=== PATIENT | female | born 1980 | race American Indian/Alaskan Native ===

== ENCOUNTER 2022-03-09 22:51 | Observation (INO) | payer OTHER ==
[2022-03-09 22:36] LABS: Hemoglobin 11.1 gm/dl (10.1-14.3); Mean Corpuscular HGB Conc 33 % (30-34); Mean Corpuscular Volume 92 fl (79-97); Red Cell Distribution Width 14.8 % (13.2-15.2)
[2022-03-09 22:38] LABS: Bilirubin,Urine NEG (Negative); Blood,Urine NEG (Negative); Color,Urine Straw (Yellow); Mucus,Urine FEW /HPF; Protein,Urine <15 mg/dL mg/dL (Negative); Urobilinogen,Urine < 2.0 mg/dL (<2.0); WBC,Urine < 1.0 /HPF (0.0-6.0)
[2022-03-09 22:41] LABS: Platelet Count 203 K/mm3 (140-440)
[~2022-03-09 22:51] MED LIST: LACTATED RINGERS 1,000 ML ONE
[2022-03-09] MEDS ORDERED: ACETAMINOPHEN 325 MG TAB PO PRN (22:57)
[2022-03-09] MEDS ORDERED: ALUM-MAG HYDROXIDE-SIMETHICONE 200-200-20MG/5ML ORAL LIQD 30 ML PO PRN (22:57)
[2022-03-09] MEDS ORDERED: MAGNESIUM HYDROXIDE (MOM) ORAL LIQD UDC PO PRN (22:57)
[2022-03-09] MEDS ORDERED: diphenhydrAMINE 25 MG CAP PO PRN (22:57)
[2022-03-09] MEDS ORDERED: ONDANSETRON 4 MG/2 ML INJ IV PRN (22:57)
[2022-03-09] MEDS ORDERED: SIMETHICONE 80 MG CHEW TAB PO PRN (22:57)
[2022-03-09] MEDS ORDERED: DOCUSATE SODIUM 100 MG CAP PO PRN (22:57)
[2022-03-09] MEDS ORDERED: SENNOSIDES/DOCUSATE SODIUM 8.6/50 MG TAB PO PRN (22:57)
[2022-03-09 22:59] LABS: Alanine Aminotransferase 10 units/L (7-56); Creatinine,Urine 20.4 mg/dL (0.1-20.0); Protein/Creatinine Ratio,Urine 0.25; Uric Acid 3.4 mg/dL (3.5-7.6)
--- NOTE | 2022-03-09 23:04 | History and Physical Report ---
History of Present Illness Date of examination: 03/09/22 Date of admission: 03/09/2022 Chief complaint: My blood pressures were high at home. History of present illness: Pt is a 41 y.o. @ 32.1 wks who presented to triage with c/o elevated blood pressures at home. States she had readings that were 140's/90's. Per pt, she has no history of cHTN. She is being followed this by [facility] d/t [facility]. Her last visit was on 03/08/22. She was also noted to have renal pyelectasis that has resolved. EDC Confirmation: 05/03/2022 Gestational Age: 32.1 weeks on admission Past History : 2 Living Children: 0 Spont. Ab: 1 # 1 Delivery date: 2017 Delivery type: SAB Comments: Bilghted ovum, no D&C Past Medical History: Reviewed and updated today: + COVID 09/06/2021 Fully vaccinated (partner is also vaccinated) Past Surgical History: Reviewed and updated today: Bone marrow donation 2009 Family History Summary: Other Family Member - Has No Family History of Uterine Cancer - Entered On: 09/23/2021 Other Family Member - Has No Family History of Stomach Cancer - Entered On: 09/23/2021 Other Family Member - Has No Family History of Spontaneous DVT-PE - Entered On: 09/23/2021 Other Family Member - Has No Family History of Small Bowel Cancer - Entered On: 09/23/2021 Other Family Member - Has No Family History of Pancreatic Cancer - Entered On: 09/23/2021 Other Family Member - Has No Family History of Ovarvian Cancer - Entered On: 09/23/2021 Other Family Member - Has No Family History of Kidney/Urinary Tract Cancer - Entered On: 09/23/2021 Other Family Member - Has No Family History of Colon Cancer - Entered On: 09/23/2021 Other Family Member - Has No Family History of Breast Cancer - Entered On: 09/23/2021 Other Family Member - Has No Family History of Brain Cancer - Entered On: 09/23/2021 Other Family Member - Has No Family History of Biliary Tract Cancer - Entered On: 09/23/2021 Social History: Patient is Smoking History: Patient has never smoked. Risk Factors: Smoked Tobacco Use: Never smoker Smokeless Tobacco Use: Never Passive Smoke Exposure: no HIV High Risk Behavior: no Exercise: no Seatbelt Use: 100 % No Dietary Counseling Reason: pn yes PAP Smear History: Date of Last PAP Smear: 03/29/2021 Results: Normal Alcohol Use: yes Drinks per day: social Drug Use: no Past Medical History Surgery (Non-biological technician): Bone marrow donation 2009 Abnormal PAP: negative Social Hx: Patient is Smoking History: Patient has never smoked. Infection History Hx of STD: none HIV Risk Eval: no Rash, Viral, or Febrile illness since last LMP? yes Varicella/Chicken Pox Status: Previous Disease TB Risk: no Infection History Comments: COVID 09/06/2021 Genetic History ADVANCED MATERNAL AGE Congenital Heart Defect: Mom: no Dad: no Daniele Disease: Mom: no Dad: no Thalassemia Mom: no Dad: no Neural Tube Defect Mom: no Dad: no Down's Syndrome Mom: no Dad: no Sarkis-Sachs Mom: no Dad: no Sickle Cell Disease/Trait Mom: yes Dad: no Comments: mother Hemophilia Mom: no Dad: no Muscular Dystrophy Mom: no Dad: no Cystic Fibrosis Mom: no Dad: no [place] Chorea Mom: no Dad: no Mental Retardation Mom: no Dad: no Fragile X Mom: no Dad: no Other Genetic/Chromosomal Disorder Mom: no Dad: no Child w/other defect Mom: no Dad: no Enviromental Exposures Enviromental Exposures Reviewed Xray Exposure: no Medication, drug, or alcohol use since LMP: no Chemical/Other Exposure: no Exposure to Cat Liter: no Hx of Parvovirus (Fifth Disease): no Occupational Exposure to Children: other 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[email or web address]) Active Medications (reviewed today): vitamin #49-iron-FA 6.75 mg iron- 200 mcg tablet ( vitamin #49-iron-fa) Current Allergies (reviewed today): No known allergies Past History Past Medical History: other (COVID Positive in 08/2021) Past Surgical History: other (Bone marrow donation in 2009) Family/Genetic History: none Social history: no significant social history - Obstetrical History Expected Date of Delivery: 05/03/22 Actual Gestation: 32 Week(s) 2 Day(s) : 2 Para: 0 Hx # Term Pregnancies: 0 Number of Pregnancies: 0 Spontaneous Abortions: 1 Induced : 0 Number of Living Children: 0 Medications and Allergies Allergies Allergy/AdvReac Type Severity Reaction Status Date / Time No Known Allergies Allergy Verified 03/09/22 22:22 Active Meds: Active Medications Acetaminophen (Acetaminophen 325 Mg Tab) 650 mg PO Q4H PRN PRN Reason: Pain MILD(1-3)/Fever >100.5/NG Al Hydrox/Mg Hydrox/Simethicone (Alum-Mag Hydroxide-Simethicone 284-121-18gw/5ml Oral Liqd 30 Ml) 30 ml PO Q6H PRN PRN Reason: Indigestion Betamethasone Acet/Betameth SodPhos (Betamet Acet/Betamet Na Ph 6 Mg/Ml Inj 5 Ml Mdv) 12 mg IM Q24HR DAWNA Stop: 03/11/22 10:01 Diphenhydramine HCl (Diphenhydramine 25 Mg Cap) 25 mg PO Q6H PRN PRN Reason: Itching Docusate Sodium (Docusate Sodium 100 Mg Cap) 100 mg PO Q12H PRN PRN Reason: Constipation Magnesium Hydroxide (Magnesium Hydroxide (Mom) Oral Liqd Udc) 30 ml PO QHS PRN PRN Reason: Laxative Effect Multivitamins/Iron/Calcium ( Qzs28-Va Fumarate-Folic Acid Vit Tab) 1 each PO QDAY DAWNA Ondansetron HCl (Ondansetron 4 Mg/2 Ml Inj) 4 mg IV Q6H PRN PRN Reason: Nausea And Vomiting Senna/Docusate Sodium (Sennosides/Docusate Sodium 8.6/50 Mg Tab) 2 tab PO Q12H PRN PRN Reason: Laxative Effect Simethicone (Simethicone 80 Mg Chew Tab) 80 mg PO Q6H PRN PRN Reason: Gas pain Review of Systems All systems: negative - Vital Signs Vital signs: Vital Signs Pulse BP 108 H 147/97 03/09/22 21:27 03/09/22 21:27 Temp Pulse Resp BP Pulse Ox 98.1 F 71 141/72 99 03/09/22 21:39 03/09/22 22:59 03/09/22 22:57 03/09/22 22:59 - Physical Exam Breasts: Positive: deferred Cardiovascular: Normal S1, Normal S2 Lungs: Positive: Clear to auscultation Abdomen: Positive: normal appearance, soft Genitourinary (Female): Positive: normal external genitalia, normal perenium Vulva: both: normal Vagina: Positive: normal moisture Uterus: Positive: normal size Extremities: Positive: edema (+1 edema to lower extremities.) Deep Tendon Reflex Grade: Normal +2 - Obstetrical FHR: category 1 Uterine Contraction Monitor Mode: External Cervical Dilatation: 0 Cervical Effacement Percentage: 0 station: -3 Uterine Contraction Pattern: Irregular Uterine Tone Measurement Phase: Resting Uterine Contraction Intensity: Mild Results Result Diagrams: 03/09/22 22:25 03/09/22 22:25 Abnormal lab results 03/09/22 03/09/22 03/09/22 Range/Units 22:25 22:25 22:25 WBC 17.9 H (4.5-11.0) K/mm3 Creatinine 0.3 L (0.6-1.2) mg/dL Uric Acid 3.4 L (3.5-7.6) mg/dL Lactate Dehydrogenase 284 H (91-180) units/L Ur Specific [place] 1.002 L (1.003-1.030) Urine Creatinine (0.1-20.0) mg/dL 03/09/22 Range/Units 22:25 WBC (4.5-11.0) K/mm3 Creatinine (0.6-1.2) mg/dL Uric Acid (3.5-7.6) mg/dL Lactate Dehydrogenase (91-180) units/L Ur Specific [place] (1.003-1.030) Urine Creatinine 20.4 H (0.1-20.0) mg/dL All other labs normal. GBS UNKNOWN: Not drawn yet d/t gestation of only 32 weeks HBsAg Screen Negative Negative *1 RPR Non Reactive Non Reactive *2 Rubella Antibodies, IgG 2.97 index Immune >0.99 *3 Non-immune <0.90 Equivocal 0.90 - 0.99 Immune >0.99 ABO Grouping O *4 Rh Factor Positive *5 Antibody Screen Negative Negative *6 Tests: (2) HB Solu + Rflx [facility] ([id number]) Hemoglobin (Hgb) Solubility [A] Positive Negative *31 Tests: (3) Hgb Fractionation [place] ([id number]) ! Hgb F 0.0 % 0.0-2.0 *32 ! Hgb A [L] 55.8 % 96.4-98.8 *33 ! Hgb A2 2.9 % 1.8-3.2 *34 ! Hgb S [H] 41.3 % 0.0 *35 ! Interpretation: KELLY *36 Reflex to Hgb Solubility indicated for confirmation. Tests: (5) HIV Ab/p24 Ag with Reflex ([id number]) HIV Ab/p24 Ag Screen Non Reactive Non Reactive *39 HIV Negative HIV-1/HIV-2 antibodies and HIV-1 p24 antigen were NOT detected. There is no laboratory evidence of HIV infection. Tests: (6) HCV Antibody reflex to GIO ([id number]) HCV Ab <0.1 s/co ratio 0.0-0.9 *40 Tests: (7) Interpretation: ([id number]) ! Interpretation: SPRCS *41 Negative Not infected with HCV, unless recent infection is suspected or other evidence exists to indicate HCV infection. Assessment and Plan A: 41 y.o. @ 32.1 wks, elevated blood pressures. - Patient Problems (1) Elevated blood pressure affecting in third trimester, antepartum Current Visit: Yes Status: Acute Plan to address problem: Consulted with Dr. Farah. Admit to observation. Draw admission and Pre Eclampsia labs. Initiate 24 hr urine. Steroid administration. Will hold off on magnesium infusion. - Will initiate if persistent severe range blood pressures. Ultrasound for EFW, presentation, full MARION. Monitor blood pressures. Monitor for s/sx of Pre Eclampsia. Cardiac diet. (2) with 32 completed weeks gestation Current Visit: Yes Status: Acute Plan to address problem: Continuous EFM to monitor status.
[2022-03-10] MEDS: BETAMET ACET/BETAMET NA PH 6 MG/ML INJ 5 ML MDV IM SCH (00:54)
--- NOTE | 2022-03-10 01:34 | Ultrasound Report ---
ULTRASOUND OBSTETRIC INDICATION / CLINICAL INFORMATION: growth, presentation, full MARION. Clinical Gestational Age (GA) in weeks, days: 32, 2 TECHNIQUE: Transabdominal. COMPARISON: None available. FINDINGS: Single intrauterine . Biparietal Diameter = 8.7 cm = 35, 0 weeks, days Head Circumference = 29.5 cm = 30, 4 weeks, days Abdominal Circumference = 27.8 cm = 31, 6 weeks, days Femur Length = 6.0 cm = 31, 1 weeks, days Average Ultrasound Age (AUA) = 32, 5 weeks, days Heart Rate: 156 beats per minute. Estimated Weight in grams (if calculated): 1870 Estimated Weight Growth Percentile (if calculated): 29 Position: cephalic. Placenta: Right lateral and free of the os. Amniotic Fluid Volume: decreased Amniotic Fluid Index (MARION) in cm (if calculated): 6.4. IMPRESSION: 1. Single, living intrauterine with estimated sonographic age of 33, 5 weeks, days. 2. Mild oligohydramnios Signer Name: Sadiq Esposito DO Signed: 03/10/2022 1:30 AM Workstation Name: [id number]
--- NOTE | 2022-03-10 06:10 | Progress Note ---
Assessment and Plan A: 41 y.o. @ 32.1 wks, elevated blood pressures. - Patient Problems (1) Elevated blood pressure affecting in third trimester, antepartum Current Visit: Yes Status: Acute Plan to address problem: Continue with 24 hours urine. - Due to end at 0114 on 03/11. Monitor for s/sx of pre eclampsia. Continue to monitor blood pressures. Steroids ordered: #1 dose given 0054 03/10. - 2nd dose to be given 03/11 0054. (2) with 32 completed weeks gestation Current Visit: Yes Status: Acute Plan to address problem: Continuous EFM. Subjective - Subjective Date of service: 03/10/22 Principal diagnosis: IUP @ 32.1 wks, elevated blood pressures Interval history: Pt denies NG, blurred vision, spots before her eyes, chest pain, upper abdominal pain, shortness of breath, vaginal bleeding, LOF, ctxs. We discussed the plan of care for the day and patient agrees to this plan. Patient reports: movement normal, no new complaints, no loss of fluid, no vaginal bleeding, no contractions Objective - Vital Signs Vital Signs: Vital Signs - 12hr 03/09/22 03/09/22 03/09/22 21:27 21:28 21:29 Temperature Pulse Rate 108 H 80 Blood Pressure 147/97 O2 Sat by Pulse 75 L 99 Oximetry 03/09/22 03/09/22 03/09/22 21:34 21:39 21:43 Temperature 98.1 F Pulse Rate 94 H 87 80 Blood Pressure 171/80 O2 Sat by Pulse 99 99 Oximetry 03/09/22 03/09/22 03/09/22 21:44 21:49 21:54 Temperature Pulse Rate 79 94 H 86 Blood Pressure O2 Sat by Pulse 99 100 100 Oximetry 03/09/22 03/09/22 03/09/22 21:59 22:04 22:09 Temperature Pulse Rate 82 84 85 Blood Pressure 132/76 O2 Sat by Pulse 99 100 100 Oximetry 03/09/22 03/09/22 03/09/22 22:12 22:14 22:19 Temperature Pulse Rate 83 89 80 Blood Pressure 143/78 O2 Sat by Pulse 99 100 Oximetry 03/09/22 03/09/22 03/09/22 22:24 22:28 22:29 Temperature Pulse Rate 89 88 79 Blood Pressure 136/82 O2 Sat by Pulse 99 99 Oximetry 03/09/22 03/09/22 03/09/22 22:34 22:39 22:43 Temperature Pulse Rate 80 80 75 Blood Pressure 143/73 O2 Sat by Pulse 99 100 Oximetry 03/09/22 03/09/22 03/09/22 22:44 22:49 22:54 Temperature Pulse Rate 85 80 74 Blood Pressure O2 Sat by Pulse 99 98 99 Oximetry 03/09/22 03/09/22 03/09/22 22:57 22:59 23:04 Temperature Pulse Rate 74 71 77 Blood Pressure 141/72 O2 Sat by Pulse 99 99 Oximetry 03/09/22 03/09/22 03/09/22 23:09 23:12 23:14 Temperature Pulse Rate 73 74 72 Blood Pressure 142/74 O2 Sat by Pulse 100 100 Oximetry 03/09/22 03/09/22 03/09/22 23:19 23:24 23:28 Temperature Pulse Rate 70 75 88 Blood Pressure 146/76 O2 Sat by Pulse 99 98 Oximetry 03/09/22 03/09/22 03/10/22 23:29 23:34 00:22 Temperature Pulse Rate 70 81 74 Blood Pressure O2 Sat by Pulse 99 99 99 Oximetry 03/10/22 03/10/22 03/10/22 00:27 00:32 00:37 Temperature Pulse Rate 75 90 82 Blood Pressure O2 Sat by Pulse 99 99 99 Oximetry 03/10/22 03/10/22 03/10/22 00:42 00:47 00:48 Temperature Pulse Rate 86 103 H 110 H Blood Pressure 142/83 O2 Sat by Pulse 99 98 Oximetry 03/10/22 03/10/22 03/10/22 00:52 00:57 01:02 Temperature Pulse Rate 100 H 80 97 H Blood Pressure O2 Sat by Pulse 98 99 99 Oximetry 03/10/22 03/10/22 03/10/22 01:07 01:12 01:22 Temperature Pulse Rate 96 H 83 40 L Blood Pressure O2 Sat by Pulse 99 98 97 Oximetry 03/10/22 03/10/22 03/10/22 01:27 01:32 01:37 Temperature Pulse Rate 83 78 70 Blood Pressure O2 Sat by Pulse 98 97 99 Oximetry 03/10/22 03/10/22 03/10/22 01:42 01:47 01:48 Temperature Pulse Rate 79 83 82 Blood Pressure 132/73 O2 Sat by Pulse 99 99 Oximetry 03/10/22 03/10/22 03/10/22 01:52 01:57 02:02 Temperature Pulse Rate 92 H 92 H 89 Blood Pressure O2 Sat by Pulse 98 98 98 Oximetry 03/10/22 03/10/22 03/10/22 02:07 02:12 02:17 Temperature Pulse Rate 86 105 H 91 H Blood Pressure O2 Sat by Pulse 98 100 98 Oximetry 03/10/22 03/10/22 03/10/22 02:18 02:22 02:27 Temperature Pulse Rate 84 97 H 85 Blood Pressure 128/80 O2 Sat by Pulse 98 98 Oximetry 03/10/22 03/10/22 03/10/22 02:32 02:37 02:42 Temperature Pulse Rate 82 84 84 Blood Pressure O2 Sat by Pulse 98 97 97 Oximetry 03/10/22 03/10/22 03/10/22 02:47 02:48 02:52 Temperature Pulse Rate 87 86 82 Blood Pressure 149/84 O2 Sat by Pulse 97 96 Oximetry 03/10/22 03/10/22 03/10/22 02:57 03:02 03:07 Temperature Pulse Rate 83 84 85 Blood Pressure O2 Sat by Pulse 96 96 96 Oximetry 03/10/22 03/10/22 03/10/22 03:12 03:17 03:19 Temperature Pulse Rate 86 86 82 Blood Pressure 134/77 O2 Sat by Pulse 96 96 Oximetry 03/10/22 03/10/22 03/10/22 03:22 03:27 03:32 Temperature Pulse Rate 80 85 81 Blood Pressure O2 Sat by Pulse 96 96 96 Oximetry 03/10/22 03/10/22 03/10/22 03:37 03:42 03:47 Temperature Pulse Rate 82 84 82 Blood Pressure O2 Sat by Pulse 96 96 96 Oximetry 03/10/22 03/10/22 03/10/22 03:48 03:52 03:57 Temperature Pulse Rate 81 82 81 Blood Pressure 145/78 O2 Sat by Pulse 95 95 Oximetry 03/10/22 03/10/22 03/10/22 04:02 04:03 04:07 Temperature Pulse Rate 91 H 92 H 79 Blood Pressure O2 Sat by Pulse 94 94 96 Oximetry 03/10/22 03/10/22 03/10/22 04:12 04:17 04:18 Temperature Pulse Rate 77 74 78 Blood Pressure 139/75 O2 Sat by Pulse 96 96 94 Oximetry 03/10/22 03/10/22 03/10/22 04:22 04:27 04:32 Temperature Pulse Rate 91 H 87 80 Blood Pressure O2 Sat by Pulse 98 97 96 Oximetry 03/10/22 03/10/22 03/10/22 04:37 04:42 04:47 Temperature Pulse Rate 77 76 79 Blood Pressure O2 Sat by Pulse 96 97 97 Oximetry 03/10/22 03/10/22 03/10/22 04:48 04:52 04:57 Temperature Pulse Rate 79 80 81 Blood Pressure 136/76 O2 Sat by Pulse 97 97 Oximetry 03/10/22 03/10/22 03/10/22 05:02 05:07 05:12 Temperature Pulse Rate 74 93 H 101 H Blood Pressure O2 Sat by Pulse 97 98 98 Oximetry 03/10/22 03/10/22 03/10/22 05:17 05:18 05:22 Temperature Pulse Rate 104 H 100 H 78 Blood Pressure 138/90 O2 Sat by Pulse 98 97 Oximetry 03/10/22 03/10/22 03/10/22 05:27 05:32 05:37 Temperature Pulse Rate 98 H 91 H 87 Blood Pressure O2 Sat by Pulse 98 98 97 Oximetry 03/10/22 03/10/22 03/10/22 05:42 05:47 05:48 Temperature Pulse Rate 90 73 73 Blood Pressure 125/74 O2 Sat by Pulse 99 97 Oximetry 03/10/22 03/10/22 03/10/22 05:52 05:57 06:02 Temperature Pulse Rate 76 78 88 Blood Pressure O2 Sat by Pulse 97 98 98 Oximetry - Exam Narrative Exam: Blood pressure ranges have been mostly 120-140-s/70-90's. One severe range noted of 171/80. Breasts: deferred Cardiovascular: Regular rate Lungs: Normal air movement Abdomen: Present: normal appearance, soft Vulva: both: normal Uterus: Present: normal FHR: category 1 Uterine Contraction Monitor Mode: External Uterine Contraction Pattern: Absent Extremities: normal - Labs Labs: Abnormal Labs 03/09/22 03/09/22 03/09/22 22:25 22:25 22:25 WBC 17.9 H Creatinine 0.3 L Uric Acid 3.4 L Lactate Dehydrogenase 284 H Ur Specific [place] 1.002 L Urine Creatinine 03/09/22 22:25 WBC Creatinine Uric Acid Lactate Dehydrogenase Ur Specific [place] Urine Creatinine 20.4 H Laboratory Results - last 24 hr 03/09/22 03/09/22 03/09/22 22:25 22:25 22:25 WBC 17.9 H RBC 3.70 Hgb 11.1 Hct 34.0 MCV 92 MCH 30 MCHC 33 RDW 14.8 Plt Count 203 Creatinine 0.3 L Estimated GFR > 60 Uric Acid 3.4 L AST 23 ALT 10 Lactate Dehydrogenase 284 H Urine Color Straw Urine Turbidity Clear Urine pH 7.0 Ur Specific [place] 1.002 L Urine Protein <15 mg/dl Urine Glucose (UA) Neg Urine Ketones 20 Urine Blood Neg Urine Nitrite Neg Urine Bilirubin Neg Urine Urobilinogen < 2.0 Ur Leukocyte Esterase Neg Urine WBC (Auto) < 1.0 Urine RBC (Auto) 1.0 U Epithel Cells (Auto) 3.0 Urine Mucus Few Urine Creatinine Protein/Creatinin Ratio Urine Total Protein Syphilis IgG/IgM Ab Blood Type Antibody Screen 03/09/22 03/09/22 03/09/22 22:25 22:25 22:25 WBC RBC Hgb Hct MCV MCH MCHC RDW Plt Count Creatinine Estimated GFR Uric Acid AST ALT Lactate Dehydrogenase Urine Color Urine Turbidity Urine pH Ur Specific [place] Urine Protein Urine Glucose (UA) Urine Ketones Urine Blood Urine Nitrite Urine Bilirubin Urine Urobilinogen Ur Leukocyte Esterase Urine WBC (Auto) Urine RBC (Auto) U Epithel Cells (Auto) Urine Mucus Urine Creatinine 20.4 H Protein/Creatinin Ratio 0.25 Urine Total Protein 5 Syphilis IgG/IgM Ab Nonreactive Blood Type O POSITIVE Antibody Screen Negative
[2022-03-10] MEDS ORDERED: BETAMET ACET/BETAMET NA PH 6 MG/ML INJ 5 ML MDV IM SCH (10:00)
[2022-03-10] MEDS: PRENATAL VIT27-FE FUMARATE-FOLIC ACID VIT TAB PO SCH (10:47)
[2022-03-10] MEDS: ASPIRIN 81 MG TAB CHEW PO SCH (11:36)
[2022-03-11] MEDS: BETAMET ACET/BETAMET NA PH 6 MG/ML INJ 5 ML MDV IM SCH (01:08)
[2022-03-11] MEDS ORDERED: LACTATED RINGERS 1,000 ML ONE (06:42)
--- NOTE | 2022-03-11 08:22 | Progress Note ---
Assessment and Plan A: 41 y.o. @ 32.2 wks, Pre Eclampsia. - Patient Problems (1) with 32 completed weeks gestation Current Visit: Yes Status: Acute Plan to address problem: Continuous monitoring to monitor for status. (2) Pre-eclampsia during in third trimester, antepartum Current Visit: Yes Status: Acute Plan to address problem: Possible discharge home today if remains stable. Consult placed for AMFM. - Awaiting recommendations. Continue to monitor for worsening s/sx of Pre Eclampsia. Continue to monitor blood pressures. No magnesium infusion or anti-hypertensive at this time. - BP ranges have been WNL. Subjective - Subjective Date of service: 03/11/22 Principal diagnosis: IUP @ 32.3 wks, Pre eclampsia Interval history: Pt denies NG, blurred vision, spots before her eyes, chest pain, upper abdominal pain, shortness of breath, vaginal bleeding, LOF, ctxs. We discussed the plan of care for the day and patient agrees to this plan. Patient reports: movement normal, no new complaints, no loss of fluid, no vaginal bleeding, no contractions Objective - Vital Signs Vital Signs: Vital Signs - 12hr 03/10/22 03/10/22 03/10/22 20:24 20:29 20:34 Temperature Pulse Rate 79 90 87 Blood Pressure O2 Sat by Pulse 98 99 98 Oximetry 03/10/22 03/10/22 03/10/22 20:39 20:44 20:48 Temperature Pulse Rate 88 82 156 H Blood Pressure 137/84 O2 Sat by Pulse 97 97 78 L Oximetry 03/10/22 03/10/22 03/10/22 21:33 21:38 21:39 Temperature Pulse Rate 62 95 H 84 Blood Pressure 128/80 O2 Sat by Pulse 81 L 99 Oximetry 03/10/22 03/10/22 03/10/22 21:43 21:48 21:53 Temperature Pulse Rate 82 99 H 99 H Blood Pressure O2 Sat by Pulse 97 97 98 Oximetry 03/10/22 03/10/22 03/10/22 21:58 22:03 22:04 Temperature Pulse Rate 100 H 89 97 H Blood Pressure O2 Sat by Pulse 98 99 94 Oximetry 03/10/22 03/10/22 03/10/22 22:08 22:13 22:18 Temperature Pulse Rate 88 87 92 H Blood Pressure O2 Sat by Pulse 97 98 98 Oximetry 03/10/22 03/10/22 03/10/22 22:23 22:28 22:33 Temperature Pulse Rate 83 82 80 Blood Pressure O2 Sat by Pulse 97 97 98 Oximetry 03/10/22 03/10/22 03/10/22 22:38 22:39 22:43 Temperature Pulse Rate 87 84 82 Blood Pressure 131/83 O2 Sat by Pulse 98 98 Oximetry 03/10/22 03/10/22 03/10/22 22:48 22:53 22:58 Temperature Pulse Rate 85 93 H 89 Blood Pressure O2 Sat by Pulse 99 99 98 Oximetry 03/10/22 03/10/22 03/10/22 23:03 23:08 23:13 Temperature Pulse Rate 96 H 85 78 Blood Pressure O2 Sat by Pulse 99 98 97 Oximetry 03/10/22 03/10/22 03/10/22 23:18 23:23 23:28 Temperature Pulse Rate 82 83 84 Blood Pressure O2 Sat by Pulse 96 96 96 Oximetry 03/10/22 03/10/22 03/10/22 23:33 23:38 23:40 Temperature Pulse Rate 85 92 H 90 Blood Pressure 119/60 O2 Sat by Pulse 96 98 Oximetry 03/10/22 03/10/22 03/10/22 23:43 23:48 23:53 Temperature Pulse Rate 86 82 85 Blood Pressure O2 Sat by Pulse 96 97 97 Oximetry 03/10/22 03/11/22 03/11/22 23:58 00:03 00:08 Temperature Pulse Rate 86 86 87 Blood Pressure O2 Sat by Pulse 97 96 96 Oximetry 03/11/22 03/11/22 03/11/22 00:13 00:18 00:23 Temperature Pulse Rate 84 90 82 Blood Pressure O2 Sat by Pulse 96 97 96 Oximetry 03/11/22 03/11/22 03/11/22 00:28 00:33 00:38 Temperature Pulse Rate 83 84 95 H Blood Pressure O2 Sat by Pulse 96 96 99 Oximetry 03/11/22 03/11/22 03/11/22 00:40 00:43 00:48 Temperature Pulse Rate 86 82 84 Blood Pressure 123/66 O2 Sat by Pulse 96 96 Oximetry 03/11/22 03/11/22 03/11/22 00:53 00:58 01:03 Temperature Pulse Rate 82 80 95 H Blood Pressure O2 Sat by Pulse 97 97 98 Oximetry 03/11/22 03/11/22 03/11/22 01:08 01:13 01:18 Temperature 98.1 F Pulse Rate 81 82 83 Blood Pressure O2 Sat by Pulse 97 97 97 Oximetry 03/11/22 03/11/22 03/11/22 01:23 01:28 01:33 Temperature Pulse Rate 100 H 75 92 H Blood Pressure O2 Sat by Pulse 98 98 99 Oximetry 03/11/22 03/11/22 03/11/22 01:38 01:40 01:43 Temperature Pulse Rate 78 81 78 Blood Pressure 130/76 O2 Sat by Pulse 98 98 Oximetry 03/11/22 03/11/22 03/11/22 01:48 01:53 01:58 Temperature Pulse Rate 84 95 H 74 Blood Pressure O2 Sat by Pulse 98 97 99 Oximetry 03/11/22 03/11/22 03/11/22 02:03 02:08 02:13 Temperature Pulse Rate 76 82 80 Blood Pressure O2 Sat by Pulse 98 98 97 Oximetry 03/11/22 03/11/22 03/11/22 02:18 02:23 02:28 Temperature Pulse Rate 82 81 81 Blood Pressure O2 Sat by Pulse 98 98 98 Oximetry 03/11/22 03/11/22 03/11/22 02:33 02:44 02:49 Temperature Pulse Rate 80 113 H 86 Blood Pressure O2 Sat by Pulse 98 98 98 Oximetry 03/11/22 03/11/22 03/11/22 02:54 02:59 03:04 Temperature Pulse Rate 94 H 73 75 Blood Pressure O2 Sat by Pulse 97 97 97 Oximetry 03/11/22 03/11/22 03/11/22 03:05 03:09 03:14 Temperature Pulse Rate 87 73 74 Blood Pressure 128/85 O2 Sat by Pulse 98 99 Oximetry 03/11/22 03/11/22 03/11/22 03:19 03:24 03:29 Temperature Pulse Rate 71 75 75 Blood Pressure O2 Sat by Pulse 98 97 98 Oximetry 03/11/22 03/11/22 03/11/22 03:34 03:39 03:40 Temperature Pulse Rate 72 70 71 Blood Pressure 119/59 O2 Sat by Pulse 98 96 Oximetry 03/11/22 03/11/22 03/11/22 03:44 03:49 03:54 Temperature Pulse Rate 79 76 80 Blood Pressure O2 Sat by Pulse 97 97 96 Oximetry 03/11/22 03/11/22 03/11/22 03:59 04:04 04:09 Temperature Pulse Rate 83 83 80 Blood Pressure O2 Sat by Pulse 95 95 95 Oximetry 03/11/22 03/11/22 03/11/22 04:14 04:15 04:19 Temperature Pulse Rate 85 84 77 Blood Pressure O2 Sat by Pulse 95 94 94 Oximetry 03/11/22 03/11/22 03/11/22 04:20 04:24 04:29 Temperature Pulse Rate 81 81 83 Blood Pressure O2 Sat by Pulse 94 96 96 Oximetry 03/11/22 03/11/22 03/11/22 04:34 04:39 04:40 Temperature Pulse Rate 83 77 81 Blood Pressure 103/55 O2 Sat by Pulse 96 96 94 Oximetry 03/11/22 03/11/22 03/11/22 04:44 04:49 04:51 Temperature Pulse Rate 79 83 83 Blood Pressure O2 Sat by Pulse 95 95 94 Oximetry 03/11/22 03/11/22 03/11/22 04:54 04:59 05:01 Temperature Pulse Rate 82 85 82 Blood Pressure O2 Sat by Pulse 94 95 94 Oximetry 03/11/22 03/11/22 03/11/22 05:04 05:09 05:14 Temperature Pulse Rate 81 84 93 H Blood Pressure O2 Sat by Pulse 95 95 95 Oximetry 03/11/22 03/11/22 03/11/22 05:19 05:24 05:29 Temperature Pulse Rate 83 83 83 Blood Pressure O2 Sat by Pulse 94 96 95 Oximetry 03/11/22 03/11/22 03/11/22 05:30 05:34 05:37 Temperature Pulse Rate 80 81 81 Blood Pressure O2 Sat by Pulse 94 96 94 Oximetry 03/11/22 03/11/22 03/11/22 05:39 05:40 05:44 Temperature Pulse Rate 74 77 84 Blood Pressure 99/53 O2 Sat by Pulse 94 97 Oximetry 03/11/22 03/11/22 03/11/22 05:46 05:49 05:54 Temperature Pulse Rate 80 80 84 Blood Pressure O2 Sat by Pulse 94 95 98 Oximetry 03/11/22 03/11/22 03/11/22 05:59 06:04 06:09 Temperature Pulse Rate 93 H 78 71 Blood Pressure O2 Sat by Pulse 98 95 97 Oximetry 03/11/22 03/11/22 03/11/22 06:14 06:19 06:24 Temperature 98.2 F Pulse Rate 79 74 72 Blood Pressure 130/65 O2 Sat by Pulse 97 99 98 Oximetry 03/11/22 03/11/22 03/11/22 06:29 06:34 06:39 Temperature Pulse Rate 68 83 71 Blood Pressure O2 Sat by Pulse 97 98 97 Oximetry 03/11/22 03/11/22 03/11/22 06:40 06:44 06:49 Temperature Pulse Rate 72 64 84 Blood Pressure 125/67 O2 Sat by Pulse 97 98 Oximetry 03/11/22 03/11/22 03/11/22 06:54 06:59 07:04 Temperature Pulse Rate 79 78 74 Blood Pressure O2 Sat by Pulse 96 98 96 Oximetry 03/11/22 03/11/22 03/11/22 07:09 07:14 07:19 Temperature Pulse Rate 85 83 74 Blood Pressure O2 Sat by Pulse 97 97 97 Oximetry 03/11/22 03/11/22 03/11/22 07:24 07:29 07:34 Temperature Pulse Rate 78 78 80 Blood Pressure O2 Sat by Pulse 97 98 98 Oximetry 03/11/22 03/11/22 03/11/22 07:39 07:41 07:44 Temperature Pulse Rate 76 77 77 Blood Pressure 111/58 O2 Sat by Pulse 97 94 96 Oximetry 03/11/22 03/11/22 03/11/22 07:49 07:54 07:59 Temperature Pulse Rate 80 78 78 Blood Pressure O2 Sat by Pulse 96 97 98 Oximetry - Exam Narrative Exam: Blood pressure ranges this morning have been 90-130's/50-80's. Breasts: deferred Cardiovascular: Regular rate Lungs: Normal air movement Abdomen: Present: normal appearance, soft FHR: category 1 Uterine Contraction Monitor Mode: External Uterine Contraction Pattern: Absent Deep Tendon Reflex Grade: Normal +2 - Labs Labs: Abnormal Labs 03/09/22 03/09/22 03/09/22 22:25 22:25 22:25 WBC 17.9 H Creatinine 0.3 L Uric Acid 3.4 L Lactate Dehydrogenase 284 H Ur Specific [place] 1.002 L Urine Creatinine Ur Total Protein 24 Hr 03/09/22 03/09/22 22:25 22:57 WBC Creatinine Uric Acid Lactate Dehydrogenase Ur Specific [place] Urine Creatinine 20.4 H Ur Total Protein 24 Hr 420.00 H Laboratory Results - last 24 hr 03/09/22 03/10/22 22:57 11:00 Urine Total Volume 4200 Ur Total Protein 24 Hr 420.00 H Urine Total Protein 10 SARS-CoV-2 (PCR) Negative
--- NOTE | 2022-03-11 09:32 | Consultation ---
History of Present Illness - Reason for Consult Consult date: 03/11/22 Past History Social history: no significant social history Medications and Allergies Allergies Allergy/AdvReac Type Severity Reaction Status Date / Time No Known Allergies Allergy Verified 03/09/22 22:22 Active Meds: Active Medications Acetaminophen (Acetaminophen 325 Mg Tab) 650 mg PO Q4H PRN PRN Reason: Pain MILD(1-3)/Fever >100.5/NG Al Hydrox/Mg Hydrox/Simethicone (Alum-Mag Hydroxide-Simethicone [id number]/5ml Oral Liqd 30 Ml) 30 ml PO Q6H PRN PRN Reason: Indigestion Aspirin (Aspirin 81 Mg Tab Chew) 81 mg PO QDAY COUNTS INCLUDE 234 BEDS AT THE [facility] Last Admin: 03/10/22 11:36 Dose: 81 mg Diphenhydramine HCl (Diphenhydramine 25 Mg Cap) 25 mg PO Q6H PRN PRN Reason: Itching Docusate Sodium (Docusate Sodium 100 Mg Cap) 100 mg PO Q12H PRN PRN Reason: Constipation Magnesium Hydroxide (Magnesium Hydroxide (Mom) Oral Liqd Udc) 30 ml PO QHS PRN PRN Reason: Laxative Effect Multivitamins/Iron/Calcium ( [id number] Fumarate-Folic Acid Vit Tab) 1 each PO QDAY COUNTS INCLUDE 234 BEDS AT THE [facility] Last Admin: 03/10/22 10:47 Dose: 1 each Ondansetron HCl (Ondansetron 4 Mg/2 Ml Inj) 4 mg IV Q6H PRN PRN Reason: Nausea And Vomiting Senna/Docusate Sodium (Sennosides/Docusate Sodium 8.6/50 Mg Tab) 2 tab PO Q12H PRN PRN Reason: Laxative Effect Simethicone (Simethicone 80 Mg Chew Tab) 80 mg PO Q6H PRN PRN Reason: Gas pain Exam - Constitutional Vitals: Temp Pulse Resp BP Pulse Ox 98.6 F 78 20 124/60 97 03/11/22 08:36 03/11/22 09:24 03/11/22 08:36 03/11/22 09:05 03/11/22 09:24 Results - Labs CBC & Chem 7: 03/09/22 22:25 03/09/22 22:25 Labs: Abnormal lab results 03/09/22 Range/Units 22:57 Ur Total Protein 24 Hr 420.00 H (2-200) mg/dL Assessment and Plan AMFM Pt seen and discussed with Dr Farah: IUP at 32 weeks Preeclampsia without severe features Decreased FM AMA Rec: US for BPP Home if clinically stable, testing is reassuring Will require weekly testing , CBC/CMP AMFM appt on Sunday03/16/22 800am
[2022-03-11 10:06] VITALS: BP 129/68
[2022-03-11] MEDS: ASPIRIN 81 MG TAB CHEW PO SCH (10:13)
[2022-03-11] MEDS: PRENATAL VIT27-FE FUMARATE-FOLIC ACID VIT TAB PO SCH (10:13)
--- NOTE | 2022-03-11 12:35 | Ultrasound Report ---
ULTRASOUND BIOPHYSICAL PROFILE INDICATION: well being. COMPARISON: Ultrasound 03/09/2022 FINDINGS: breathing movement = 2 Gross body movement = 2 tone = 2 Qualitative amniotic fluid volume = 2 Total biophysical score = 04/17 Presentation is Cephalic. heart rate is 138 beats per minute. IMPRESSION: biophysical profile = 04/17 Signer Name: Juma Connelly MD Signed: 03/11/2022 12:31 PM Workstation Name: [id number]
--- NOTE | 2022-03-11 12:53 | Discharge Summary ---
Providers - Providers Date of Admission: 03/09/22 22:53 Date of discharge: 03/11/22 Attending physician: CARTER MARSH 03/11/22 08:34 Consult to Physician [CONS] Urgent Comment: Consulting Provider: TRENA QUINN Physician Instructions: Reason For Exam: New diagnosis Pre E, 32 wks, desire recommendation Primary care physician: CARTER MARSH Hospitalization Reason for admission: observation Discharge diagnosis: other (Undelivered @ 32.3 wks) Pertinent studies: Discussed with patient should any of the following occur she will need to call the hotel or motel receptionist provider and come to triage for an evaluation: NG, blurred vision, spots before her eyes, chest pain, shortness of breath, upper abdominal pain, or any of the following symptoms w/wo a blood pressure of 160/110 or greater. Hospital course: Pt is a 41 y.o. @ 32.3 wks who presented to triage with c/o of elevated blood p ressures at home. Her blood pressure ranges on admission were 130-170/80-90's. She was admitted for observation and 24hr urine. Her 24 hr urine resulted at 420 and she was given the diagnosis of Pre Eclampsia without severe features. [facility] was consulted and recommended out patient management as her blood pressures have been WNL. Her BPP (8/8 on 03/11) and other Pre Eclampsia labs were WNL. Her full MARION at the time of discharge was 7.1. Pt denied during her hospital stay and at time of discharge NG, blurred vision, spots before her eyes, chest pain, shortness of breath, upper abdominal pain, ctxs, LOF, and vaginal bleeding. Blood pressures currently are 90-130's/50-80's. Current plan will be discharge patient home with close monitoring in the office and by [facility]. Condition at discharge: Good Disposition: 01 HOME / SELF CARE / HOMELESS - Discharge Diagnoses (1) with 32 completed weeks gestation Status: Acute (2) Pre-eclampsia during in third trimester, antepartum Status: Acute Plan - Provider Discharge Summary Activity: routine Diet: routine Instructions: routine Additional instructions: [] Smoking cessation referral if applicable(refer to patient education folder for contact #) [] Refer to [facility] Booklet Call your doctor immediately for: * Fever > 100.5 * Heavy vaginal bleeding ( >1 pad per hour) * Severe persistent headache * Shortness of breath * Reddened, hot, painful area to leg or breast * Drainage or odor from incision. * Keep incision clean and dry at all times and follow doctor's instructions regarding bathing/showering - Follow up plan Follow up: CARTER MARSH MD [Primary Care Provider] - 7 Days (- Please schedule an appointment in the office this coming week for NST and to check on your blood pressures. - Should you have any of the following, you will call the office to speak to the on-call provider, and go to [facility] triage Labor and Delivery for evaluation: Blood pressure of 160/110 or greater and the following symptoms with or without a high blood pressure, NG, blurred vision, spots before your eyes, chest pain, feeling like you can't catch your breath, or severe pain in your belly. - You should also call if you have vaginal bleeding, feeling like your water broke, regular painful contractions. - Please do not hesitate to call us at the office if you have any additional questions or concerns. ) Forms: [facility] Discharge Summary
--- NOTE | 2022-03-11 16:57 | Ultrasound Report ---
ULTRASOUND OBSTETRIC LIMITED INDICATION / CLINICAL INFORMATION: Full MARION. Clinical Gestational Age (GA) in weeks, days: 32 weeks 3 days TECHNIQUE: Transabdominal. COMPARISON: 03/10/2022 FINDINGS: HEART RATE (beats per minute): 145 AMNIOTIC FLUID INDEX (cm) = 7.1 (normal = 7-24 cm) PRESENTATION: Cephalic. ADDITIONAL FINDINGS: None. IMPRESSION: 1. Single viable IUP. 2. MARION on today's exam is 7.1 cm. MARION previously measured 6.4 on yesterday's exam. Signer Name: Rosalinda Strong MD Signed: 03/11/2022 4:53 PM Workstation Name: [id number]
== END 2022-03-11 13:04 | disposition home or self-care (01) ==
LOC: LD 22:51 → TRG 22:51 → LD 22:53 → APU 03-10 00:19 → LD 03-10 00:19
PROVIDERS: ADMIT Obstetrics & Gynecology; ATTEND Obstetrics & Gynecology
DX: O14.93 Unspecified pre-eclampsia, third trimester (principal); Z20.822 Contact with and (suspected) exposure to COVID-19; O26.893 Other specified pregnancy related conditions, third trimester; O09.93 Supervision of high risk pregnancy, unspecified, third trimester; R03.0 Elevated blood-pressure reading, without diagnosis of hypertension; O36.8130 Decreased fetal movements, third trimester, not applicable or unspecified; Z3A.32 32 weeks gestation of pregnancy; Z79.82 Long term (current) use of aspirin
CPT/HCPCS: 36415; 59025; 76815; 76816; 76819; 81001; 82565; 82570; 83615; 84156; 84450; 84460; 84550; 85027; 86592; 86850; 86900; 86901; 96360; 96361; 96372; G0378; J0702; J7120; U0003

== ENCOUNTER 2022-03-15 15:49 | Inpatient (IN) | payer OTHER ==
[2022-03-15 17:48] LABS: Hemoglobin 10.6 gm/dl (10.1-14.3); Mean Corpuscular HGB Conc 33 % (30-34); Mean Corpuscular Volume 93 fl (79-97); Platelet Count 233 K/mm3 (140-440); Red Blood Count 3.45 M/mm3 (3.65-5.03); Red Cell Distribution Width 15.5 % (13.2-15.2)
[2022-03-15 18:03] LABS: Alanine Aminotransferase 36 units/L (7-56); Uric Acid 2.9 mg/dL (3.5-7.6)
--- NOTE | 2022-03-15 18:04 | History and Physical Report ---
History of Present Illness Date of examination: 03/15/22 Date of admission: 03/15/2022 Chief complaint: Elevated blood pressures in the office. History of present illness: Pt is a 41 y.o. @ 33 wks who presented to the office for f/u after a diagnosis of Pre Eclampsia, and APU admission. Her recent APU admission on March 09 was for elevated blood pressures. A 24 hr urine was collected and resulted as 420. She was given a diagnosis of Pre Eclampsia. [facility] was consulted for recommendations. Recommendations were to send the patient home if she was stable, weekly testing and CBC/CMP. Today her blood pressure in the office was 170/100. She was sent to triage were she continued to have elevated blood pressures. She was originally being seen by [facility] d/t [facility]. Her most recent visit was today, March 15. Per patient her blood pressure at that visit was 130's/80's and all testing was normal. EDC Confirmation: 05/03/2022 Gestational Age: 33 weeks on admission Past History : 2 Living Children: 0 Spont. Ab: 1 # 1 Delivery date: 2017 Delivery type: SAB Comments: Bilghted ovum, no D&C Past Medical History: Reviewed and updated today: + COVID 09/06/2021 Fully vaccinated (partner is also vaccinated) Past Surgical History: Reviewed and updated today: Bone marrow donation 2009 Family History Summary: Other Family Member - Has No Family History of Uterine Cancer - Entered On: 09/23/2021 Other Family Member - Has No Family History of Stomach Cancer - Entered On: 09/23/2021 Other Family Member - Has No Family History of Spontaneous DVT-PE - Entered On: 09/23/2021 Other Family Member - Has No Family History of Small Bowel Cancer - Entered On: 09/23/2021 Other Family Member - Has No Family History of Pancreatic Cancer - Entered On: 09/23/2021 Other Family Member - Has No Family History of Ovarvian Cancer - Entered On: 09/23/2021 Other Family Member - Has No Family History of Kidney/Urinary Tract Cancer - Entered On: 09/23/2021 Other Family Member - Has No Family History of Colon Cancer - Entered On: 09/23/2021 Other Family Member - Has No Family History of Breast Cancer - Entered On: 09/23/2021 Other Family Member - Has No Family History of Brain Cancer - Entered On: 09/23/2021 Other Family Member - Has No Family History of Biliary Tract Cancer - Entered On: 09/23/2021 Social History: Patient is Smoking History: Patient has never smoked. 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 Infection History Hx of STD: none HIV Risk Eval: no Rash, Viral, or Febrile illness since last LMP? yes Varicella/Chicken Pox Status: Previous Disease TB Risk: no Infection History Comments: COVID 09/06/2021 Genetic History ADVANCED MATERNAL AGE Congenital Heart Defect: Mom: no Dad: no Daniele Disease: Mom: no Dad: no Thalassemia Mom: no Dad: no Neural Tube Defect Mom: no Dad: no Down's Syndrome Mom: no Dad: no Sarkis-Sachs Mom: no Dad: no Sickle Cell Disease/Trait Mom: yes Dad: no Comments: mother Hemophilia Mom: no Dad: no Muscular Dystrophy Mom: no Dad: no Cystic Fibrosis Mom: no Dad: no [place] Chorea Mom: no Dad: no Mental Retardation Mom: no Dad: no Fragile X Mom: no Dad: no Other Genetic/Chromosomal Disorder Mom: no Dad: no Child w/other defect Mom: no Dad: no Enviromental Exposures Enviromental Exposures Reviewed Xray Exposure: no Medication, drug, or alcohol use since LMP: no Chemical/Other Exposure: no Exposure to Cat Liter: no Hx of Parvovirus (Fifth Disease): no Occupational Exposure to Children: other Comments: [employer] ( [employer]) Active Medications (reviewed today): vitamin #49-iron-FA 6.75 mg iron- 200 mcg tablet ( vitamin #49-iron-fa) Current Allergies (reviewed today): No known allergies Past History Past Medical History: other (COVID 2020) Past Surgical History: other (Bone marrow donation) Family/Genetic History: none Social history: no significant social history - Obstetrical History Expected Date of Delivery: 05/03/22 Actual Gestation: 33 Week(s) 0 Day(s) : 2 Para: 0 Hx # Term Pregnancies: 0 Number of Pregnancies: 0 Spontaneous Abortions: 1 Induced : 0 Number of Living Children: 0 Medications and Allergies Allergies Allergy/AdvReac Type Severity Reaction Status Date / Time No Known Allergies Allergy Verified 03/09/22 22:22 Home Medications Medication Instructions Recorded Confirmed Last Taken Type Aspirin BABY CHEW TAB 81 mg PO QDAY 03/15/22 03/15/22 03/14/22 History 1 Vit-Fe Fumar-FA [ 1 tab PO QDAY 03/15/22 03/15/22 03/14/22 History Vitamin] 1 Review of Systems All systems: negative - Vital Signs Vital signs: Vital Signs Temp Pulse Resp BP Pulse Ox 98.4 F 57 L 18 166/83 97 03/15/22 16:26 03/15/22 16:26 03/15/22 16:26 03/15/22 16:26 03/15/22 16:26 Temp Pulse Resp BP Pulse Ox 98.4 F 62 18 147/80 97 03/15/22 16:26 03/15/22 18:01 03/15/22 16:26 03/15/22 17:57 03/15/22 18:01 - Physical Exam Cardiovascular: Regular rate Lungs: Positive: Normal air movement Abdomen: Positive: normal appearance, soft Uterus: Positive: normal size (For 33 wk gestation) Extremities: Positive: edema (+1 edema to bilateral lower extremities. ) Deep Tendon Reflex Grade: Normal +2 - Obstetrical FHR: category 1 Uterine Contraction Monitor Mode: External Uterine Contraction Pattern: Absent Results Result Diagrams: 03/15/22 16:45 03/15/22 20:35 Abnormal lab results 03/15/22 03/15/22 Range/Units 16:45 16:45 WBC 12.7 H (4.5-11.0) K/mm3 RBC 3.45 L (3.65-5.03) M/mm3 RDW 15.5 H (13.2-15.2) % Uric Acid 2.9 L (3.5-7.6) mg/dL Lactate Dehydrogenase 410 H (91-180) units/L All other labs normal. GBS UNKNOWN (too early to collect at time of admission) HBsAg Screen Negative Negative *1 RPR Non Reactive Non Reactive *2 Rubella Antibodies, IgG 2.97 index Immune >0.99 *3 Non-immune <0.90 Equivocal 0.90 - 0.99 Immune >0.99 ABO Grouping O *4 Rh Factor Positive *5 Antibody Screen Negative Negative *6 Tests: (2) HB Solu + Rflx Frac ([id number]) Hemoglobin (Hgb) Solubility [A] Positive Negative *31 Tests: (3) Hgb Fractionation [place] ([id number]) ! Hgb F 0.0 % 0.0-2.0 *32 ! Hgb A [L] 55.8 % 96.4-98.8 *33 ! Hgb A2 2.9 % 1.8-3.2 *34 ! Hgb S [H] 41.3 % 0.0 *35 ! Interpretation: KELLY *36 Reflex to Hgb Solubility indicated for confirmation. Tests: (4) Hgb Solubility ([id number]) ! Hgb Solubility DUPPRG (X) *37 Duplicate procedure ordered. ! Final Interpretation: SBAS *38 Hemoglobin pattern and concentrations are consistent with sickle cell trait (heterozygous). Suggest clinical and hematologic correlation. Sickle Trait Interpretation Ranges Hgb A 50.0 - 70.0% Hgb S 30.0 - 45.0% Hgb A2 1.8 - 4.0% Tests: (5) HIV Ab/p24 Ag with Reflex ([id number]) HIV Ab/p24 Ag Screen Non Reactive Non Reactive *39 HIV Negative HIV-1/HIV-2 antibodies and HIV-1 p24 antigen were NOT detected. There is no laboratory evidence of HIV infection. Tests: (6) HCV Antibody reflex to GIO ([id number]) HCV Ab <0.1 s/co ratio 0.0-0.9 *40 Tests: (7) Interpretation: ([id number]) ! Interpretation: SPRCS *41 Negative Not infected with HCV, unless recent infection is suspected or other evidence exists to indicate HCV infection. Tests: (8) Urine Culture, Routine ([id number]) Urine Culture, Routine Final report *42 Assessment and Plan A: 41 y.o. @ 33 wks, Pre Eclampsia, AMA, hypokalemia. - Patient Problems (1) Advanced maternal age (AMA), 40 years or greater Current Visit: No Status: Acute (2) Pre-eclampsia during in third trimester, antepartum Current Visit: No Status: Acute Plan to address problem: Consulted with Dr. Stokes. Admit to labor and delivery. Initiate IV. Draw admission labs. Consult [facility] for recommendations. - Call placed. Monitor for worsening s/sx of Pre Eclampsia. Monitor blood pressures. Will hold off on anti-hypertensive medication and mag for now. - Will consider if persistent severe range blood pressures. (3) Hypokalemia Current Visit: Yes Status: Acute Plan to address problem: PO potassium ordered. (4) with 33 completed weeks gestation Current Visit: Yes Status: Acute Plan to address problem: Continuous EFM to monitor status.
[2022-03-15] MEDS ORDERED: ALUM-MAG HYDROXIDE-SIMETHICONE 200-200-20MG/5ML ORAL LIQD 30 ML PO PRN (18:06)
[2022-03-15] MEDS ORDERED: MAGNESIUM HYDROXIDE (MOM) ORAL LIQD UDC PO PRN (18:06)
[2022-03-15] MEDS ORDERED: ACETAMINOPHEN 325 MG TAB PO PRN (18:06)
[2022-03-15] MEDS ORDERED: SIMETHICONE 80 MG CHEW TAB PO PRN (18:06)
[2022-03-15] MEDS ORDERED: diphenhydrAMINE 25 MG CAP PO PRN (18:06)
[2022-03-15] MEDS ORDERED: ONDANSETRON 4 MG/2 ML INJ IV PRN (18:06)
[2022-03-15] MEDS ORDERED: DOCUSATE SODIUM 100 MG CAP PO PRN (18:06)
[2022-03-15] MEDS ORDERED: hydrALAZINE 20 MG/1 ML INJ IV ONE (19:48)
[2022-03-15 19:59] LABS: Color,Urine Straw (Yellow)
[2022-03-15 20:00] LABS: Bilirubin,Urine Negative (Negative); Blood,Urine Moderate (Negative); PH,Urine 6.5 (5.0-7.0); Protein,Urine <15 mg/dL mg/dL (Negative); Urobilinogen,Urine < 2.0 mg/dL (<2.0)
[2022-03-15 22:04] LABS: Blood Urea Nitrogen 5 mg/dL (7-17); Calcium 9.6 mg/dL (8.4-10.2); Hemolysis Index 3
[2022-03-15 22:05] LABS: BUN/Creatinine Ratio 17
--- NOTE | 2022-03-16 08:04 | Progress Note ---
Assessment and Plan patient w/o complaints; denies NG/visual changes or epigastric pain. reports active FM. b/p's 130's-170's/ 70-80's. [facility] All questions addressed. Continue current management. - Patient Problems (1) with 33 completed weeks gestation Current Visit: Yes Status: Acute (2) Advanced maternal age (AMA), 40 years or greater Current Visit: No Status: Acute (3) Pre-eclampsia during in third trimester, antepartum Current Visit: No Status: Acute Subjective - Subjective Date of service: 03/16/22 Principal diagnosis: IUp @ 33+1; pre-e Patient reports: movement normal, no new complaints, no loss of fluid, no vaginal bleeding, no contractions Objective - Vital Signs Vital Signs: Vital Signs - 12hr 03/15/22 03/15/22 03/15/22 20:06 20:07 20:12 Temperature Pulse Rate 62 88 Respiratory Rate Blood Pressure 185/84 Blood Pressure [Left] O2 Sat by Pulse 98 98 Oximetry 03/15/22 03/15/22 03/15/22 20:17 20:22 20:23 Temperature Pulse Rate 98 H 83 114 H Respiratory Rate Blood Pressure 163/78 Blood Pressure 163/78 [Left] O2 Sat by Pulse 99 99 Oximetry 03/15/22 03/15/22 03/15/22 20:28 20:33 20:38 Temperature Pulse Rate 94 H 95 H 97 H Respiratory Rate Blood Pressure Blood Pressure [Left] O2 Sat by Pulse 98 99 98 Oximetry 03/15/22 03/15/22 03/15/22 20:43 20:48 20:52 Temperature Pulse Rate 99 H 96 H 84 Respiratory Rate Blood Pressure 144/72 Blood Pressure 144/72 [Left] O2 Sat by Pulse 98 97 Oximetry 03/15/22 03/15/22 03/15/22 20:53 20:58 21:03 Temperature Pulse Rate 81 110 H 84 Respiratory Rate Blood Pressure Blood Pressure [Left] O2 Sat by Pulse 97 99 98 Oximetry 03/15/22 03/15/22 03/15/22 21:07 21:08 21:13 Temperature Pulse Rate 85 97 H 96 H Respiratory Rate Blood Pressure 144/79 Blood Pressure [Left] O2 Sat by Pulse 97 97 Oximetry 03/15/22 03/15/22 03/15/22 21:18 21:23 21:28 Temperature Pulse Rate 78 92 H 93 H Respiratory Rate Blood Pressure 137/81 Blood Pressure [Left] O2 Sat by Pulse 97 99 98 Oximetry 03/15/22 03/15/22 03/15/22 21:33 21:37 21:38 Temperature Pulse Rate 97 H 98 H 93 H Respiratory Rate Blood Pressure 132/80 Blood Pressure [Left] O2 Sat by Pulse 98 98 Oximetry 03/15/22 03/15/22 03/15/22 21:43 21:48 21:52 Temperature Pulse Rate 90 80 96 H Respiratory Rate Blood Pressure 135/79 Blood Pressure [Left] O2 Sat by Pulse 97 98 Oximetry 03/15/22 03/15/22 03/15/22 21:53 21:58 22:03 Temperature Pulse Rate 96 H 100 H 92 H Respiratory Rate Blood Pressure Blood Pressure [Left] O2 Sat by Pulse 98 97 96 Oximetry 03/15/22 03/15/22 03/15/22 22:07 22:08 22:13 Temperature Pulse Rate 91 H 88 93 H Respiratory Rate Blood Pressure 138/83 Blood Pressure [Left] O2 Sat by Pulse 97 96 Oximetry 03/15/22 03/15/22 03/15/22 22:18 22:23 22:28 Temperature Pulse Rate 91 H 108 H 101 H Respiratory Rate Blood Pressure 140/80 Blood Pressure [Left] O2 Sat by Pulse 97 98 97 Oximetry 03/15/22 03/15/22 03/15/22 22:33 22:37 22:38 Temperature Pulse Rate 93 H 84 102 H Respiratory Rate Blood Pressure 143/81 Blood Pressure [Left] O2 Sat by Pulse 97 97 Oximetry 03/15/22 03/15/22 03/15/22 22:43 22:48 22:52 Temperature Pulse Rate 86 74 82 Respiratory Rate Blood Pressure 139/77 Blood Pressure [Left] O2 Sat by Pulse 97 98 Oximetry 03/15/22 03/15/22 03/15/22 22:53 22:58 23:03 Temperature Pulse Rate 80 74 77 Respiratory Rate Blood Pressure Blood Pressure [Left] O2 Sat by Pulse 96 95 96 Oximetry 03/15/22 03/15/22 03/15/22 23:07 23:08 23:13 Temperature 98.2 F Pulse Rate 83 81 86 Respiratory 18 Rate Blood Pressure 147/88 Blood Pressure 147/88 [Left] O2 Sat by Pulse 96 96 97 Oximetry 03/15/22 03/15/22 03/15/22 23:18 23:22 23:23 Temperature Pulse Rate 75 74 74 Respiratory Rate Blood Pressure 143/77 Blood Pressure [Left] O2 Sat by Pulse 96 96 Oximetry 03/15/22 03/15/22 03/15/22 23:28 23:33 23:37 Temperature Pulse Rate 77 77 76 Respiratory Rate Blood Pressure 134/73 Blood Pressure [Left] O2 Sat by Pulse 95 95 Oximetry 03/15/22 03/15/22 03/15/22 23:38 23:43 23:48 Temperature Pulse Rate 78 78 73 Respiratory Rate Blood Pressure Blood Pressure [Left] O2 Sat by Pulse 97 96 96 Oximetry 03/15/22 03/15/22 03/15/22 23:52 23:53 23:58 Temperature Pulse Rate 76 75 73 Respiratory Rate Blood Pressure 146/78 Blood Pressure [Left] O2 Sat by Pulse 97 97 Oximetry 03/16/22 03/16/22 03/16/22 00:03 00:08 00:13 Temperature Pulse Rate 75 68 65 Respiratory Rate Blood Pressure 140/75 Blood Pressure [Left] O2 Sat by Pulse 97 97 97 Oximetry 03/16/22 03/16/22 03/16/22 00:18 00:22 00:23 Temperature Pulse Rate 83 78 74 Respiratory 18 Rate Blood Pressure 135/71 Blood Pressure 135/71 [Left] O2 Sat by Pulse 96 96 Oximetry 03/16/22 03/16/22 03/16/22 00:28 00:33 00:37 Temperature Pulse Rate 69 82 79 Respiratory Rate Blood Pressure 124/66 Blood Pressure [Left] O2 Sat by Pulse 97 96 Oximetry 03/16/22 03/16/22 03/16/22 00:38 00:43 00:48 Temperature Pulse Rate 80 82 74 Respiratory Rate Blood Pressure Blood Pressure [Left] O2 Sat by Pulse 96 96 97 Oximetry 03/16/22 03/16/22 03/16/22 00:52 00:53 00:58 Temperature Pulse Rate 73 78 80 Respiratory Rate Blood Pressure 132/72 Blood Pressure [Left] O2 Sat by Pulse 96 96 Oximetry 03/16/22 03/16/22 03/16/22 01:03 01:07 01:08 Temperature Pulse Rate 74 75 75 Respiratory Rate Blood Pressure 135/74 Blood Pressure [Left] O2 Sat by Pulse 97 97 Oximetry 03/16/22 03/16/22 03/16/22 01:13 01:18 01:22 Temperature Pulse Rate 75 66 67 Respiratory 18 Rate Blood Pressure Blood Pressure 137/74 [Left] O2 Sat by Pulse 97 98 Oximetry 03/16/22 03/16/22 03/16/22 01:23 01:24 01:28 Temperature Pulse Rate 75 67 76 Respiratory Rate Blood Pressure 137/74 Blood Pressure [Left] O2 Sat by Pulse 98 97 Oximetry 03/16/22 03/16/22 03/16/22 01:33 01:37 01:38 Temperature Pulse Rate 73 69 74 Respiratory Rate Blood Pressure 135/72 Blood Pressure [Left] O2 Sat by Pulse 97 97 Oximetry 03/16/22 03/16/22 03/16/22 01:43 01:48 01:52 Temperature Pulse Rate 77 82 89 Respiratory Rate Blood Pressure 128/71 Blood Pressure [Left] O2 Sat by Pulse 97 97 Oximetry 03/16/22 03/16/22 03/16/22 01:53 01:58 02:03 Temperature Pulse Rate 90 89 87 Respiratory Rate Blood Pressure Blood Pressure [Left] O2 Sat by Pulse 98 97 97 Oximetry 03/16/22 03/16/22 03/16/22 02:07 02:08 02:13 Temperature Pulse Rate 86 85 81 Respiratory Rate Blood Pressure 126/69 Blood Pressure [Left] O2 Sat by Pulse 97 98 Oximetry 03/16/22 03/16/22 03/16/22 02:18 02:22 02:23 Temperature Pulse Rate 89 88 88 Respiratory 18 Rate Blood Pressure 130/71 Blood Pressure 130/71 [Left] O2 Sat by Pulse 97 98 98 Oximetry 03/16/22 03/16/22 03/16/22 02:28 02:33 02:37 Temperature Pulse Rate 80 89 73 Respiratory Rate Blood Pressure 130/76 Blood Pressure [Left] O2 Sat by Pulse 97 98 Oximetry 03/16/22 03/16/22 03/16/22 02:38 02:43 02:48 Temperature Pulse Rate 78 85 76 Respiratory Rate Blood Pressure Blood Pressure [Left] O2 Sat by Pulse 97 98 98 Oximetry 03/16/22 03/16/22 03/16/22 02:53 03:06 03:08 Temperature Pulse Rate 81 94 H 83 Respiratory Rate Blood Pressure 141/80 135/81 Blood Pressure [Left] O2 Sat by Pulse 97 Oximetry 03/16/22 03/16/22 03/16/22 03:11 03:16 03:21 Temperature Pulse Rate 64 76 63 Respiratory Rate Blood Pressure Blood Pressure [Left] O2 Sat by Pulse 98 98 98 Oximetry 03/16/22 03/16/22 03/16/22 03:22 03:23 03:26 Temperature Pulse Rate 70 70 66 Respiratory Rate Blood Pressure 149/75 Blood Pressure 149/75 [Left] O2 Sat by Pulse 98 Oximetry 03/16/22 03/16/22 03/16/22 03:31 03:36 03:37 Temperature Pulse Rate 68 77 85 Respiratory Rate Blood Pressure 147/78 Blood Pressure [Left] O2 Sat by Pulse 97 98 Oximetry 03/16/22 03/16/22 03/16/22 03:41 03:46 03:52 Temperature Pulse Rate 70 87 70 Respiratory Rate Blood Pressure Blood Pressure [Left] O2 Sat by Pulse 97 98 97 Oximetry 03/16/22 03/16/22 03/16/22 03:53 03:56 04:02 Temperature Pulse Rate 64 72 69 Respiratory Rate Blood Pressure 134/68 Blood Pressure [Left] O2 Sat by Pulse 99 96 Oximetry 03/16/22 03/16/22 03/16/22 04:06 04:07 04:11 Temperature Pulse Rate 70 67 65 Respiratory Rate Blood Pressure 147/74 Blood Pressure [Left] O2 Sat by Pulse 96 96 Oximetry 03/16/22 03/16/22 03/16/22 04:16 04:22 04:23 Temperature Pulse Rate 71 65 64 Respiratory Rate Blood Pressure 153/74 Blood Pressure [Left] O2 Sat by Pulse 96 96 94 Oximetry 03/16/22 03/16/22 03/16/22 04:27 04:31 04:36 Temperature Pulse Rate 61 68 74 Respiratory Rate Blood Pressure Blood Pressure [Left] O2 Sat by Pulse 96 96 99 Oximetry 03/16/22 03/16/22 03/16/22 04:37 04:41 04:46 Temperature Pulse Rate 68 61 62 Respiratory Rate Blood Pressure 177/85 Blood Pressure 177/85 [Left] O2 Sat by Pulse 99 96 96 Oximetry 03/16/22 03/16/22 03/16/22 04:51 04:52 04:53 Temperature Pulse Rate 65 73 76 Respiratory Rate Blood Pressure 149/70 Blood Pressure [Left] O2 Sat by Pulse 96 94 Oximetry 03/16/22 03/16/22 03/16/22 04:56 05:02 05:07 Temperature Pulse Rate 65 65 78 Respiratory Rate Blood Pressure Blood Pressure [Left] O2 Sat by Pulse 96 96 94 Oximetry 03/16/22 03/16/22 03/16/22 05:09 05:11 05:16 Temperature Pulse Rate 68 71 66 Respiratory 18 Rate Blood Pressure 149/76 Blood Pressure 149/76 [Left] O2 Sat by Pulse 97 97 96 Oximetry 03/16/22 03/16/22 03/16/22 05:21 05:23 05:26 Temperature Pulse Rate 69 64 66 Respiratory Rate Blood Pressure 146/74 Blood Pressure [Left] O2 Sat by Pulse 96 96 Oximetry 03/16/22 03/16/22 03/16/22 05:32 05:36 05:37 Temperature Pulse Rate 68 60 59 L Respiratory Rate Blood Pressure 154/80 Blood Pressure [Left] O2 Sat by Pulse 96 95 93 Oximetry 03/16/22 03/16/22 03/16/22 05:41 05:47 05:52 Temperature Pulse Rate 72 75 70 Respiratory 18 Rate Blood Pressure 144/73 Blood Pressure 144/73 [Left] O2 Sat by Pulse 97 97 96 Oximetry 03/16/22 03/16/22 03/16/22 05:55 05:57 06:02 Temperature Pulse Rate 66 80 69 Respiratory Rate Blood Pressure Blood Pressure [Left] O2 Sat by Pulse 94 96 96 Oximetry 03/16/22 03/16/22 03/16/22 06:07 06:12 06:17 Temperature Pulse Rate 70 67 67 Respiratory Rate Blood Pressure 165/81 Blood Pressure [Left] O2 Sat by Pulse 94 96 97 Oximetry 03/16/22 03/16/22 03/16/22 06:22 06:27 06:32 Temperature Pulse Rate 67 63 76 Respiratory Rate Blood Pressure Blood Pressure [Left] O2 Sat by Pulse 97 96 96 Oximetry 03/16/22 03/16/22 03/16/22 06:37 06:42 06:46 Temperature Pulse Rate 71 77 67 Respiratory Rate Blood Pressure 151/74 Blood Pressure [Left] O2 Sat by Pulse 94 96 96 Oximetry 03/16/22 03/16/22 03/16/22 06:51 06:53 06:56 Temperature Pulse Rate 71 63 66 Respiratory Rate Blood Pressure 146/71 Blood Pressure [Left] O2 Sat by Pulse 97 97 Oximetry 03/16/22 03/16/22 03/16/22 07:01 07:06 07:07 Temperature Pulse Rate 66 78 75 Respiratory Rate Blood Pressure 140/71 Blood Pressure [Left] O2 Sat by Pulse 97 96 Oximetry 03/16/22 03/16/22 03/16/22 07:11 07:16 07:21 Temperature Pulse Rate 71 66 70 Respiratory Rate Blood Pressure Blood Pressure [Left] O2 Sat by Pulse 96 96 96 Oximetry 03/16/22 03/16/22 03/16/22 07:22 07:24 07:26 Temperature Pulse Rate 64 66 63 Respiratory Rate Blood Pressure 159/77 Blood Pressure [Left] O2 Sat by Pulse 93 96 Oximetry 03/16/22 03/16/22 03/16/22 07:31 07:36 07:37 Temperature Pulse Rate 74 70 71 Respiratory Rate Blood Pressure 139/74 Blood Pressure [Left] O2 Sat by Pulse 96 96 Oximetry 03/16/22 03/16/22 03/16/22 07:41 07:47 07:51 Temperature Pulse Rate 73 68 96 H Respiratory Rate Blood Pressure Blood Pressure [Left] O2 Sat by Pulse 96 97 97 Oximetry 03/16/22 03/16/22 03/16/22 07:53 07:56 08:01 Temperature Pulse Rate 74 79 71 Respiratory Rate Blood Pressure 160/76 Blood Pressure [Left] O2 Sat by Pulse 94 96 98 Oximetry - Exam Cardiovascular: Regular rate Lungs: Normal air movement Abdomen: Present: normal appearance, soft Vulva: both: normal Uterus: Present: normal, fundal height above umbilicus FHR: category 1 Uterine Contraction Monitor Mode: External Uterine Contraction Pattern: Irregular Uterine Tone Measurement Phase: Contraction Uterine Contraction Intensity: Mild Extremities: normal Deep Tendon Reflex Grade: Normal +2 - Labs Labs: Abnormal Labs 03/15/22 03/15/22 03/15/22 16:20 16:45 16:45 WBC 12.7 H RBC 3.45 L RDW 15.5 H Potassium Carbon Dioxide BUN Creatinine 0.4 L Uric Acid 2.9 L Lactate Dehydrogenase 410 H Urine Blood Moderate A 03/15/22 20:35 WBC RBC RDW Potassium 3.4 L Carbon Dioxide 19 L BUN 5 L Creatinine 0.3 L Uric Acid Lactate Dehydrogenase Urine Blood Laboratory Results - last 24 hr 03/15/22 03/15/22 03/15/22 16:20 16:45 16:45 WBC 12.7 H RBC 3.45 L Hgb 10.6 Hct 32.0 MCV 93 MCH 31 MCHC 33 RDW 15.5 H Plt Count 233 Sodium Potassium Chloride Carbon Dioxide Anion Gap BUN Creatinine 0.4 L Estimated GFR > 60 BUN/Creatinine Ratio Glucose Uric Acid 2.9 L Calcium AST 29 ALT 36 Lactate Dehydrogenase 410 H Urine Color Straw Urine Turbidity Clear Urine pH 6.5 Ur Specific [place] 1.005 Urine Protein <15 mg/dl Urine Glucose (UA) Negative Urine Ketones Negative Urine Blood Moderate A Urine Nitrite Negative Ur Reducing Substances Not Reportable Urine Bilirubin Negative Urine Ictotest Not Reportable Urine Urobilinogen < 2.0 Ur Leukocyte Esterase Negative Urine WBC (Auto) 3.0 Urine RBC (Auto) 11.0 U Epithel Cells (Auto) 4.0 Blood Type Antibody Screen 03/15/22 03/15/22 20:00 20:35 WBC RBC Hgb Hct MCV MCH MCHC RDW Plt Count Sodium 140 Potassium 3.4 L Chloride 104.8 Carbon Dioxide 19 L Anion Gap 20 BUN 5 L Creatinine 0.3 L Estimated GFR > 60 BUN/Creatinine Ratio 17 Glucose 83 Uric Acid Calcium 9.6 AST ALT Lactate Dehydrogenase Urine Color Urine Turbidity Urine pH Ur Specific [place] Urine Protein Urine Glucose (UA) Urine Ketones Urine Blood Urine Nitrite Ur Reducing Substances Urine Bilirubin Urine Ictotest Urine Urobilinogen Ur Leukocyte Esterase Urine WBC (Auto) Urine RBC (Auto) U Epithel Cells (Auto) Blood Type O POSITIVE Antibody Screen Negative
[2022-03-16] MEDS: PRENATAL VIT27-FE FUMARATE-FOLIC ACID VIT TAB PO SCH (10:48)
[2022-03-16] MEDS: POTASSIUM CHLORIDE ER 20 MEQ TAB PO SCH (10:48)
--- NOTE | 2022-03-17 01:24 | Ultrasound Report ---
ULTRASOUND BIOPHYSICAL PROFILE INDICATION / CLINICAL INFORMATION: wellbing, pre-e. COMPARISON: 03/11/2022. FINDINGS: BREATHING MOVEMENT = 2 GROSS BODY MOVEMENT = 2 TONE = 2 QUALITATIVE AMNIOTIC FLUID VOLUME = 2 TOTAL BIOPHYSICAL SCORE = 04/17 PRESENTATION: Cephalic. HEART RATE (beats per minute): 161 IMPRESSION: 1. biophysical profile = 04/17 Signer Name: Adrian Wagner MD Signed: 03/17/2022 1:19 AM Workstation Name: [id number]
--- NOTE | 2022-03-17 07:28 | Consultation ---
Past History Past Medical History: other (COVID 2020) Past Surgical History: other (Bone marrow donation) Family/Genetic History: none - Obstetrical History : 2 Medications and Allergies Allergies Allergy/AdvReac Type Severity Reaction Status Date / Time No Known Allergies Allergy Verified 03/09/22 22:22 Home Medications Medication Instructions Recorded Confirmed Last Taken Type Aspirin BABY CHEW TAB 81 mg PO QDAY 03/15/22 03/15/22 03/14/22 History 1 Vit-Fe Fumar-FA [ 1 tab PO QDAY 03/15/22 03/15/22 03/14/22 History Vitamin] 1 Active Meds: Active Medications Acetaminophen (Acetaminophen 325 Mg Tab) 650 mg PO Q4H PRN PRN Reason: Pain MILD(1-3)/Fever >100.5/NG Al Hydrox/Mg Hydrox/Simethicone (Alum-Mag Hydroxide-Simethicone [id number]/5ml Oral Liqd 30 Ml) 30 ml PO Q6H PRN PRN Reason: Indigestion Diphenhydramine HCl (Diphenhydramine 25 Mg Cap) 25 mg PO Q6H PRN PRN Reason: Itching Docusate Sodium (Docusate Sodium 100 Mg Cap) 100 mg PO Q12H PRN PRN Reason: Constipation Last Admin: 03/16/22 19:38 Dose: 100 mg Lactated Ringer's (Lactated Ringers) 1,000 mls @ 75 mls/hr IV DIRECT DAWNA Magnesium Hydroxide (Magnesium Hydroxide (Mom) Oral Liqd Udc) 30 ml PO QHS PRN PRN Reason: Laxative Effect Multivitamins/Iron/Calcium ( [id number] Fumarate-Folic Acid Vit Tab) 1 each PO QDAY [facility] Last Admin: 03/16/22 10:48 Dose: 1 each Ondansetron HCl (Ondansetron 4 Mg/2 Ml Inj) 4 mg IV Q6H PRN PRN Reason: Nausea And Vomiting Potassium Chloride (Potassium Chloride Er 20 Meq Tab) 20 meq PO QDAY [facility] Stop: 03/17/22 10:01 Last Admin: 03/16/22 10:48 Dose: 20 meq Simethicone (Simethicone 80 Mg Chew Tab) 80 mg PO Q6H PRN PRN Reason: Gas pain Sodium Chloride (Sodium Chloride 0.9% 10 Ml Flush Syringe) 10 ml IV PRN PRN PRN Reason: LINE FLUSH - Vital Signs Vital signs: Vital Signs Temp Pulse Resp BP Pulse Ox 98.4 F 57 L 18 166/83 97 03/15/22 16:26 03/15/22 16:26 03/15/22 16:26 03/15/22 16:26 03/15/22 16:26 Temp Pulse Resp BP Pulse Ox 98.5 F 68 16 145/82 99 03/17/22 04:08 03/17/22 07:26 03/16/22 09:24 03/17/22 04:27 03/17/22 07:26 Results Result Diagrams: 03/15/22 16:45 03/15/22 20:35 All other labs normal. Assessment and Plan [facility] Full consult to follow IUP at 33 weeks Severe preeclampsia by BP criteria Continue inpatient expectant management Delivery is advised at 34 0/7 weeks gestation Pt will need a NICU consult Twice weekly BPP/MARION , CBC/CMP Initiate antihypertensive treatment if her BP is >160/105mmhg
--- NOTE | 2022-03-17 09:07 | Progress Note ---
Assessment and Plan A; 41 y.o. @ 33.2 wks, Pre Eclampsia with severe features. - Patient Problems (1) Advanced maternal age (AMA), 40 years or greater Current Visit: No Status: Acute (2) Pre-eclampsia during in third trimester, antepartum Current Visit: No Status: Acute Plan to address problem: Continue to monitor blood pressures. Continue to monitor for s/sx of worsening Pre Eclampsia. NICU to be consulted regarding delivery @ 34 wks. Per [facility] recommendations: Continue inpatient expectant management Delivery is advised at 34 0/7 weeks gestation Pt will need a NICU consult Twice weekly BPP/MARION , CBC/CMP Initiate antihypertensive treatment if her BP is >160/105mmhg (3) Hypokalemia Current Visit: Yes Status: Acute (4) with 33 completed weeks gestation Current Visit: Yes Status: Acute Plan to address problem: NST q 4 hrs. Subjective - Subjective Date of service: 03/17/22 Principal diagnosis: IUp @ 33.2 ; pre-e Interval history: Pt denies NG. blurred vision, spots before her eyes, chest pain, shortness of breath, upper abdominal pain, vaginal bleeding, contractions, and LOF. Patient reports: movement normal, no new complaints, no loss of fluid, no vaginal bleeding, no contractions Objective - Vital Signs Vital Signs: Vital Signs - 12hr 03/16/22 03/16/22 03/16/22 21:06 21:11 21:16 Temperature Pulse Rate 86 74 71 Blood Pressure O2 Sat by Pulse 98 98 97 Oximetry 03/16/22 03/16/22 03/16/22 21:21 21:23 21:26 Temperature Pulse Rate 76 71 71 Blood Pressure 136/77 O2 Sat by Pulse 98 98 Oximetry 03/16/22 03/16/22 03/16/22 21:31 21:36 21:41 Temperature Pulse Rate 64 69 67 Blood Pressure O2 Sat by Pulse 97 97 98 Oximetry 03/16/22 03/16/22 03/16/22 21:46 21:51 21:56 Temperature Pulse Rate 73 73 73 Blood Pressure O2 Sat by Pulse 98 98 98 Oximetry 03/16/22 03/16/22 03/16/22 22:01 22:06 22:11 Temperature Pulse Rate 65 63 68 Blood Pressure O2 Sat by Pulse 98 98 98 Oximetry 0703/16/22 03/16/22 22:16 22:21 22:23 Temperature Pulse Rate 62 86 96 H Blood Pressure 180/86 O2 Sat by Pulse 98 97 Oximetry 03/16/22 03/16/22 03/16/22 22:26 22:31 22:36 Temperature Pulse Rate 69 103 H 93 H Blood Pressure O2 Sat by Pulse 97 99 99 Oximetry 03/16/22 03/16/22 03/16/22 22:41 22:45 22:46 Temperature 98.5 F Pulse Rate 74 73 Blood Pressure 138/82 O2 Sat by Pulse 98 96 Oximetry 03/16/22 03/16/22 03/16/22 22:51 22:56 23:01 Temperature Pulse Rate 83 74 68 Blood Pressure O2 Sat by Pulse 97 96 98 Oximetry 03/16/22 03/16/22 03/16/22 23:06 23:11 23:16 Temperature Pulse Rate 72 85 82 Blood Pressure O2 Sat by Pulse 97 98 98 Oximetry 03/16/22 03/16/22 03/16/22 23:21 23:23 23:26 Temperature Pulse Rate 68 73 72 Blood Pressure 169/86 O2 Sat by Pulse 98 99 Oximetry 03/16/22 03/16/22 03/16/22 23:29 23:31 23:36 Temperature Pulse Rate 86 80 66 Blood Pressure 148/80 O2 Sat by Pulse 98 99 Oximetry 03/16/22 03/16/22 03/16/22 23:41 23:46 23:51 Temperature Pulse Rate 69 72 66 Blood Pressure O2 Sat by Pulse 98 96 96 Oximetry 03/16/22 03/17/22 03/17/22 23:56 00:01 00:06 Temperature Pulse Rate 67 64 62 Blood Pressure O2 Sat by Pulse 97 97 99 Oximetry 03/17/22 03/17/22 03/17/22 00:11 00:21 00:24 Temperature Pulse Rate 69 78 82 Blood Pressure 132/92 O2 Sat by Pulse 97 100 Oximetry 03/17/22 03/17/22 03/17/22 00:26 00:31 00:36 Temperature Pulse Rate 85 67 63 Blood Pressure O2 Sat by Pulse 98 98 99 Oximetry 03/17/22 03/17/22 03/17/22 00:41 00:46 00:51 Temperature Pulse Rate 66 71 84 Blood Pressure O2 Sat by Pulse 98 99 97 Oximetry 03/17/22 03/17/22 03/17/22 00:55 00:56 01:01 Temperature 97.8 F Pulse Rate 94 H 85 Blood Pressure O2 Sat by Pulse 96 98 Oximetry 03/17/22 03/17/22 03/17/22 01:06 01:11 01:16 Temperature Pulse Rate 62 101 H 88 Blood Pressure O2 Sat by Pulse 96 99 98 Oximetry 03/17/22 03/17/22 03/17/22 01:21 01:26 01:31 Temperature Pulse Rate 77 62 65 Blood Pressure O2 Sat by Pulse 97 98 98 Oximetry 03/17/22 03/17/22 03/17/22 01:36 01:41 01:46 Temperature Pulse Rate 65 63 65 Blood Pressure O2 Sat by Pulse 97 97 97 Oximetry 03/17/22 03/17/22 03/17/22 01:51 01:56 02:01 Temperature Pulse Rate 65 66 65 Blood Pressure O2 Sat by Pulse 97 96 96 Oximetry 03/17/22 03/17/22 03/17/22 02:06 02:11 02:16 Temperature Pulse Rate 62 67 68 Blood Pressure O2 Sat by Pulse 97 96 96 Oximetry 03/17/22 03/17/22 03/17/22 02:21 02:26 02:31 Temperature Pulse Rate 96 H 61 71 Blood Pressure O2 Sat by Pulse 97 97 96 Oximetry 03/17/22 03/17/22 03/17/22 02:36 02:41 02:46 Temperature Pulse Rate 65 60 61 Blood Pressure O2 Sat by Pulse 95 98 97 Oximetry 03/17/22 03/17/22 03/17/22 02:51 02:56 03:01 Temperature Pulse Rate 61 61 63 Blood Pressure O2 Sat by Pulse 96 97 97 Oximetry 03/17/22 03/17/22 03/17/22 03:06 03:11 03:16 Temperature Pulse Rate 66 65 67 Blood Pressure O2 Sat by Pulse 97 96 96 Oximetry 03/17/22 03/17/22 03/17/22 03:21 03:26 03:31 Temperature Pulse Rate 66 68 69 Blood Pressure O2 Sat by Pulse 96 96 96 Oximetry 03/17/22 03/17/22 03/17/22 03:36 03:41 03:46 Temperature Pulse Rate 73 76 77 Blood Pressure O2 Sat by Pulse 96 96 96 Oximetry 03/17/22 03/17/22 03/17/22 03:51 03:56 04:05 Temperature Pulse Rate 69 69 88 Blood Pressure 135/97 O2 Sat by Pulse 97 97 Oximetry 03/17/22 03/17/22 03/17/22 04:06 04:08 04:11 Temperature 98.5 F Pulse Rate 87 78 Blood Pressure O2 Sat by Pulse 100 96 Oximetry 03/17/22 03/17/22 03/17/22 04:16 04:21 04:26 Temperature Pulse Rate 75 74 76 Blood Pressure O2 Sat by Pulse 96 96 95 Oximetry 03/17/22 03/17/22 03/17/22 04:27 04:31 04:36 Temperature Pulse Rate 75 70 71 Blood Pressure 145/82 O2 Sat by Pulse 94 97 96 Oximetry 03/17/22 03/17/22 03/17/22 04:41 04:46 04:51 Temperature Pulse Rate 77 74 73 Blood Pressure O2 Sat by Pulse 96 96 97 Oximetry 03/17/22 03/17/22 03/17/22 04:56 05:01 05:06 Temperature Pulse Rate 72 74 83 Blood Pressure O2 Sat by Pulse 96 96 95 Oximetry 03/17/22 03/17/22 03/17/22 05:11 05:16 05:21 Temperature Pulse Rate 74 79 78 Blood Pressure O2 Sat by Pulse 96 96 96 Oximetry 03/17/22 03/17/22 03/17/22 05:26 05:30 05:31 Temperature Pulse Rate 73 76 69 Blood Pressure O2 Sat by Pulse 96 93 96 Oximetry 03/17/22 03/17/22 03/17/22 05:36 05:41 05:46 Temperature Pulse Rate 72 69 70 Blood Pressure O2 Sat by Pulse 97 97 97 Oximetry 03/17/22 03/17/22 03/17/22 05:51 05:56 06:01 Temperature Pulse Rate 73 66 66 Blood Pressure O2 Sat by Pulse 97 97 97 Oximetry 03/17/22 03/17/22 03/17/22 06:06 06:11 06:16 Temperature Pulse Rate 67 71 70 Blood Pressure O2 Sat by Pulse 97 95 95 Oximetry 03/17/22 03/17/22 03/17/22 06:21 06:24 06:26 Temperature Pulse Rate 72 70 64 Blood Pressure O2 Sat by Pulse 95 94 96 Oximetry 03/17/22 03/17/22 03/17/22 06:31 06:36 06:37 Temperature Pulse Rate 66 71 66 Blood Pressure O2 Sat by Pulse 95 96 94 Oximetry 03/17/22 03/17/22 03/17/22 06:41 06:46 06:48 Temperature Pulse Rate 69 72 75 Blood Pressure O2 Sat by Pulse 95 95 94 Oximetry 03/17/22 03/17/22 03/17/22 06:51 06:54 06:56 Temperature Pulse Rate 69 79 68 Blood Pressure O2 Sat by Pulse 94 94 96 Oximetry 03/17/22 03/17/22 03/17/22 07:01 07:06 07:08 Temperature Pulse Rate 74 70 74 Blood Pressure O2 Sat by Pulse 94 95 94 Oximetry 03/17/22 03/17/22 03/17/22 07:11 07:13 07:16 Temperature Pulse Rate 64 69 67 Blood Pressure O2 Sat by Pulse 97 91 98 Oximetry 03/17/22 03/17/22 03/17/22 07:21 07:26 07:31 Temperature Pulse Rate 68 68 77 Blood Pressure O2 Sat by Pulse 98 99 99 Oximetry 03/17/22 03/17/22 03/17/22 07:36 07:41 07:46 Temperature Pulse Rate 77 67 78 Blood Pressure O2 Sat by Pulse 97 99 97 Oximetry 03/17/22 03/17/22 03/17/22 07:51 07:52 07:56 Temperature Pulse Rate 92 H 88 78 Blood Pressure 136/87 O2 Sat by Pulse 97 89 97 Oximetry 03/17/22 03/17/22 03/17/22 08:01 08:06 08:11 Temperature Pulse Rate 88 85 84 Blood Pressure O2 Sat by Pulse 94 99 97 Oximetry 03/17/22 03/17/22 03/17/22 08:12 08:16 08:21 Temperature 98.5 F Pulse Rate 70 67 Blood Pressure O2 Sat by Pulse 97 99 Oximetry 03/17/22 03/17/22 03/17/22 08:26 08:31 08:36 Temperature Pulse Rate 69 69 69 Blood Pressure O2 Sat by Pulse 98 99 99 Oximetry 03/17/22 03/17/22 03/17/22 08:41 08:46 08:51 Temperature Pulse Rate 85 79 78 Blood Pressure O2 Sat by Pulse 99 99 97 Oximetry 03/17/22 03/17/22 08:56 09:01 Temperature Pulse Rate 91 H 66 Blood Pressure O2 Sat by Pulse 98 100 Oximetry - Exam Narrative Exam: Blood pressure ranges this morning 130-140's/80's. Breasts: deferred Cardiovascular: Normal S1, Normal S2 Lungs: Clear to auscultation Abdomen: Present: normal appearance, soft FHR: category 1 Uterine Contraction Monitor Mode: External Uterine Contraction Pattern: Absent Extremities: edema (+1 to bilateral lower extremities. ) Deep Tendon Reflex Grade: Normal +2 - Labs Labs: Abnormal Labs 03/15/22 03/15/22 03/15/22 16:20 16:45 16:45 WBC 12.7 H RBC 3.45 L RDW 15.5 H Potassium Carbon Dioxide BUN Creatinine 0.4 L Uric Acid 2.9 L Lactate Dehydrogenase 410 H Urine Blood Moderate A 03/15/22 20:35 WBC RBC RDW Potassium 3.4 L Carbon Dioxide 19 L BUN 5 L Creatinine 0.3 L Uric Acid Lactate Dehydrogenase Urine Blood
[2022-03-17] MEDS ORDERED: POTASSIUM CHLORIDE ER 20 MEQ TAB PO SCH (10:00)
--- NOTE | 2022-03-17 17:41 | Event Note ---
Date: 03/17/22 Spoke with [employer] and NICU team from and made them aware of consult for Pretty Chloe who will 34 wks at the time of IOL. Will come and speak with the patient.
[2022-03-17] MEDS: PRENATAL VIT27-FE FUMARATE-FOLIC ACID VIT TAB PO SCH (17:50)
[2022-03-17] MEDS: POTASSIUM CHLORIDE ER 20 MEQ TAB PO SCH (17:50)
[2022-03-17 20:36] LABS: Alanine Aminotransferase 18 units/L (7-56); Blood Urea Nitrogen 4 mg/dL (7-17); Calcium 9.2 mg/dL (8.4-10.2); Hemolysis Index 2
[2022-03-17 20:37] LABS: BUN/Creatinine Ratio 10
[2022-03-17 20:53] LABS: Hematocrit 30.6 % (30.3-42.9); Hemoglobin 10.2 gm/dl (10.1-14.3); Mean Corpuscular HGB Conc 34 % (30-34); Mean Corpuscular Volume 92 fl (79-97); Platelet Count 213 K/mm3 (140-440); Red Blood Count 3.32 M/mm3 (3.65-5.03); Red Cell Distribution Width 14.9 % (13.2-15.2)
--- NOTE | 2022-03-17 23:54 | Consultation ---
Consult Note - Parent Education I met with parent(s) and discussed the following:: Need for NICU admission, Poss ible need for intubation and surfactant or other resp support, Temperature regulation, Head ultrasounds to evaluate IVH, Eye exams for ROP screening, Possible need for IV fluids/TPN and IV antibiotics, Possible need for umbilical lines, Importance of providing breast milk & encouraged pumping aft delivery, Donor breast milk if baby meets criteria after , Slow feeding advancement and monitoring of tolerance. NG/OG feeds, Need to monitor for jaundice, Data for survival & survival without significant co-morbidities Parent(s) demonstrated understanding of all the information:: Yes Additional Comment: All questions answered with mother verbalizing understanding. Assessment and Plan - Assessment Gestation:: 33.2 (plan to deliver at 34 weeks) Estimated Weight: per US on 02/28 EFW 1770g at 30.6 weks - Plan Plan: Agree with Mag & steroids Will attend delivery Please call NICU with questions
--- NOTE | 2022-03-18 12:58 | Progress Note ---
Assessment and Plan patient w/o complaints - denies NG/visual changes/epigastric pain, b/p's 120's-160/60-80's. reviewed plan of care, all questions addressed. Rn to find with APU bed or air mattress for patient's comfort. Plan per [facility]: IUP at 33+3 weeks Severe preeclampsia by BP criteria Continue inpatient expectant management Delivery is advised at 34 0/7 weeks gestation - CN made aware 03/22 for IOL Pt will need a NICU consult -done 03/17/2022 Twice weekly BPP/MARION (04/17 done 03/16, ordered 03/19) , CBC/CMP (Done 03/17, ordered 03/19) Initiate antihypertensive treatment if her BP is >160/105mmhg - Patient Problems (1) with 33 completed weeks gestation Current Visit: Yes Status: Acute (2) Advanced maternal age (AMA), 40 years or greater Current Visit: No Status: Acute (3) Pre-eclampsia during in third trimester, antepartum Current Visit: No Status: Acute Subjective - Subjective Date of service: 03/18/22 Principal diagnosis: IUp @ 33.3 ; pre-e Patient reports: movement normal, no new complaints, no loss of fluid, no vaginal bleeding, no contractions Objective - Vital Signs Vital Signs: Vital Signs - 12hr 03/18/22 03/18/22 03/18/22 01:01 01:06 01:11 Temperature Pulse Rate 79 79 79 Respiratory Rate Blood Pressure O2 Sat by Pulse 97 97 97 Oximetry O2 Sat by Pulse Oximetry [ Bilateral] 03/18/22 03/18/22 03/18/22 01:16 01:21 01:26 Temperature Pulse Rate 76 72 80 Respiratory Rate Blood Pressure O2 Sat by Pulse 97 96 96 Oximetry O2 Sat by Pulse Oximetry [ Bilateral] 03/18/22 03/18/22 03/18/22 01:31 01:36 01:41 Temperature Pulse Rate 74 84 81 Respiratory Rate Blood Pressure O2 Sat by Pulse 96 96 96 Oximetry O2 Sat by Pulse Oximetry [ Bilateral] 03/18/22 03/18/22 03/18/22 01:46 01:51 01:56 Temperature Pulse Rate 73 78 76 Respiratory Rate Blood Pressure O2 Sat by Pulse 95 97 97 Oximetry O2 Sat by Pulse Oximetry [ Bilateral] 03/18/22 03/18/2203/18/22 02:00 02:01 02:06 Temperature Pulse Rate 84 83 77 Respiratory Rate Blood Pressure O2 Sat by Pulse 93 98 96 Oximetry O2 Sat by Pulse Oximetry [ Bilateral] 03/18/22 03/18/22 03/18/22 02:11 02:16 02:17 Temperature Pulse Rate 69 64 71 Respiratory Rate Blood Pressure 141/75 O2 Sat by Pulse 97 96 Oximetry O2 Sat by Pulse Oximetry [ Bilateral] 03/18/22 03/18/22 03/18/22 02:21 02:26 02:31 Temperature Pulse Rate 75 75 73 Respiratory Rate Blood Pressure O2 Sat by Pulse 96 96 95 Oximetry O2 Sat by Pulse Oximetry [ Bilateral] 03/18/22 03/18/22 03/18/22 02:36 02:41 02:46 Temperature Pulse Rate 74 68 81 Respiratory Rate Blood Pressure O2 Sat by Pulse 98 98 97 Oximetry O2 Sat by Pulse Oximetry [ Bilateral] 03/18/22 03/18/22 03/18/22 02:51 02:56 03:01 Temperature Pulse Rate 76 73 71 Respiratory Rate Blood Pressure O2 Sat by Pulse 97 97 98 Oximetry O2 Sat by Pulse Oximetry [ Bilateral] 03/18/22 03/18/22 03/18/22 03:06 03:11 03:16 Temperature Pulse Rate 72 74 76 Respiratory Rate Blood Pressure O2 Sat by Pulse 98 98 98 Oximetry O2 Sat by Pulse Oximetry [ Bilateral] 03/18/22 03/18/22 03/18/22 03:17 03:21 03:26 Temperature Pulse Rate 74 76 72 Respiratory Rate Blood Pressure 138/77 O2 Sat by Pulse 94 97 97 Oximetry O2 Sat by Pulse Oximetry [ Bilateral] 03/18/22 03/18/22 03/18/22 03:31 03:36 03:41 Temperature Pulse Rate 60 84 78 Respiratory Rate Blood Pressure O2 Sat by Pulse 98 97 99 Oximetry O2 Sat by Pulse Oximetry [ Bilateral] 03/18/22 03/18/22 03/18/22 03:46 03:51 03:56 Temperature Pulse Rate 73 85 89 Respiratory Rate Blood Pressure O2 Sat by Pulse 99 98 98 Oximetry O2 Sat by Pulse Oximetry [ Bilateral] 03/18/22 03/18/22 03/18/22 04:01 04:13 04:14 Temperature Pulse Rate 83 93 H 101 H Respiratory Rate Blood Pressure O2 Sat by Pulse 98 92 96 Oximetry O2 Sat by Pulse Oximetry [ Bilateral] 03/18/22 03/18/22 03/18/22 04:17 04:19 04:24 Temperature Pulse Rate 88 76 80 Respiratory Rate Blood Pressure 142/84 O2 Sat by Pulse 96 96 Oximetry O2 Sat by Pulse Oximetry [ Bilateral] 03/18/22 03/18/22 03/18/22 04:29 04:34 04:39 Temperature Pulse Rate 69 81 76 Respiratory Rate Blood Pressure O2 Sat by Pulse 97 97 96 Oximetry O2 Sat by Pulse Oximetry [ Bilateral] 03/18/22 03/18/22 03/18/22 04:44 04:49 04:50 Temperature Pulse Rate 75 77 66 Respiratory Rate Blood Pressure O2 Sat by Pulse 96 97 80 L Oximetry O2 Sat by Pulse Oximetry [ Bilateral] 03/18/22 03/18/22 03/18/22 04:54 04:59 05:04 Temperature Pulse Rate 108 H 87 85 Respiratory Rate Blood Pressure O2 Sat by Pulse 99 99 98 Oximetry O2 Sat by Pulse Oximetry [ Bilateral] 03/18/22 03/18/22 03/18/22 05:09 05:14 05:18 Temperature Pulse Rate 88 88 78 Respiratory Rate Blood Pressure 142/80 O2 Sat by Pulse 99 98 93 Oximetry O2 Sat by Pulse Oximetry [ Bilateral] 03/18/22 03/18/22 03/18/22 05:19 05:24 05:29 Temperature Pulse Rate 78 80 83 Respiratory Rate Blood Pressure O2 Sat by Pulse 96 97 98 Oximetry O2 Sat by Pulse Oximetry [ Bilateral] 03/18/22 03/18/22 03/18/22 05:34 05:39 05:44 Temperature Pulse Rate 73 75 76 Respiratory Rate Blood Pressure O2 Sat by Pulse 98 99 98 Oximetry O2 Sat by Pulse Oximetry [ Bilateral] 03/18/22 03/18/22 03/18/22 05:49 05:54 05:59 Temperature Pulse Rate 94 H 90 85 Respiratory Rate Blood Pressure O2 Sat by Pulse 98 97 98 Oximetry O2 Sat by Pulse Oximetry [ Bilateral] 03/18/22 03/18/22 03/18/22 06:04 06:09 06:14 Temperature Pulse Rate 77 81 99 H Respiratory Rate Blood Pressure O2 Sat by Pulse 99 99 100 Oximetry O2 Sat by Pulse Oximetry [ Bilateral] 03/18/22 03/18/22 03/18/22 06:17 06:19 06:24 Temperature Pulse Rate 79 89 87 Respiratory Rate Blood Pressure 118/57 O2 Sat by Pulse 93 98 98 Oximetry O2 Sat by Pulse Oximetry [ Bilateral] 03/18/22 03/18/22 03/18/22 06:29 06:34 06:39 Temperature Pulse Rate 91 H 85 86 Respiratory Rate Blood Pressure O2 Sat by Pulse 96 97 96 Oximetry O2 Sat by Pulse Oximetry [ Bilateral] 03/18/22 03/18/22 03/18/22 06:44 06:49 06:54 Temperature Pulse Rate 89 88 92 H Respiratory Rate Blood Pressure O2 Sat by Pulse 96 96 96 Oximetry O2 Sat by Pulse Oximetry [ Bilateral] 03/18/22 03/18/22 03/18/22 06:59 07:04 07:09 Temperature Pulse Rate 87 91 H 87 Respiratory Rate Blood Pressure O2 Sat by Pulse 96 97 97 Oximetry O2 Sat by Pulse Oximetry [ Bilateral] 03/18/22 03/18/22 03/18/22 07:14 07:17 07:19 Temperature Pulse Rate 80 100 H 83 Respiratory Rate Blood Pressure 132/65 O2 Sat by Pulse 94 98 Oximetry O2 Sat by Pulse Oximetry [ Bilateral] 03/18/22 03/18/22 03/18/22 07:24 07:29 07:32 Temperature Pulse Rate 93 H 81 101 H Respiratory Rate Blood Pressure O2 Sat by Pulse 97 97 94 Oximetry O2 Sat by Pulse Oximetry [ Bilateral] 03/18/22 03/18/22 03/18/22 07:34 07:39 07:44 Temperature Pulse Rate 87 87 88 Respiratory Rate Blood Pressure O2 Sat by Pulse 96 96 97 Oximetry O2 Sat by Pulse Oximetry [ Bilateral] 03/18/22 03/18/22 03/18/22 07:49 07:54 07:59 Temperature Pulse Rate 94 H 88 85 Respiratory Rate Blood Pressure O2 Sat by Pulse 97 98 98 Oximetry O2 Sat by Pulse Oximetry [ Bilateral] 03/18/22 03/18/22 03/18/22 08:04 08:14 08:17 Temperature Pulse Rate 99 H 109 H 89 Respiratory Rate Blood Pressure 137/80 O2 Sat by Pulse 99 100 Oximetry O2 Sat by Pulse Oximetry [ Bilateral] 03/18/22 03/18/22 03/18/22 08:19 08:24 08:29 Temperature Pulse Rate 84 79 82 Respiratory Rate Blood Pressure O2 Sat by Pulse 97 97 97 Oximetry O2 Sat by Pulse Oximetry [ Bilateral] 03/18/22 03/18/22 03/18/22 08:34 08:39 08:44 Temperature Pulse Rate 82 82 85 Respiratory Rate Blood Pressure O2 Sat by Pulse 97 97 96 Oximetry O2 Sat by Pulse Oximetry [ Bilateral] 03/18/22 03/18/22 03/18/22 08:49 08:54 08:59 Temperature Pulse Rate 85 76 88 Respiratory Rate Blood Pressure O2 Sat by Pulse 97 96 96 Oximetry O2 Sat by Pulse Oximetry [ Bilateral] 03/18/22 03/18/22 03/18/22 09:04 09:09 09:14 Temperature Pulse Rate 80 81 83 Respiratory Rate Blood Pressure O2 Sat by Pulse 96 96 96 Oximetry O2 Sat by Pulse Oximetry [ Bilateral] 03/18/22 03/18/22 03/18/22 09:17 09:19 09:24 Temperature Pulse Rate 88 82 86 Respiratory Rate Blood Pressure 148/78 O2 Sat by Pulse 94 97 97 Oximetry O2 Sat by Pulse Oximetry [ Bilateral] 03/18/22 03/18/22 03/18/22 09:29 09:34 09:39 Temperature Pulse Rate 84 88 81 Respiratory Rate Blood Pressure O2 Sat by Pulse 96 96 97 Oximetry O2 Sat by Pulse Oximetry [ Bilateral] 03/18/22 03/18/22 03/18/22 09:44 09:49 09:51 Temperature Pulse Rate 82 80 79 Respiratory Rate Blood Pressure O2 Sat by Pulse 96 95 94 Oximetry O2 Sat by Pulse Oximetry [ Bilateral] 03/18/22 03/18/22 03/18/22 09:54 09:58 09:59 Temperature Pulse Rate 83 83 78 Respiratory Rate Blood Pressure O2 Sat by Pulse 96 93 96 Oximetry O2 Sat by Pulse Oximetry [ Bilateral] 03/18/22 03/18/22 03/18/22 10:04 10:09 10:14 Temperature Pulse Rate 85 76 75 Respiratory Rate Blood Pressure O2 Sat by Pulse 97 96 96 Oximetry O2 Sat by Pulse Oximetry [ Bilateral] 03/18/22 03/18/22 03/18/22 10:17 10:19 10:24 Temperature Pulse Rate 82 99 H 94 H Respiratory Rate Blood Pressure 140/82 O2 Sat by Pulse 98 98 Oximetry O2 Sat by Pulse Oximetry [ Bilateral] 03/18/22 03/18/22 03/18/22 10:29 10:34 10:39 Temperature Pulse Rate 99 H 99 H 102 H Respiratory Rate Blood Pressure O2 Sat by Pulse 97 99 98 Oximetry O2 Sat by Pulse Oximetry [ Bilateral] 03/18/22 03/18/22 03/18/22 10:56 10:57 11:02 Temperature Pulse Rate 104 H 98 H 86 Respiratory Rate Blood Pressure O2 Sat by Pulse 93 98 98 Oximetry O2 Sat by Pulse Oximetry [ Bilateral] 03/18/22 03/18/22 03/18/22 11:07 11:09 11:12 Temperature Pulse Rate 93 H 94 H 85 Respiratory Rate Blood Pressure O2 Sat by Pulse 97 90 85 Oximetry O2 Sat by Pulse Oximetry [ Bilateral] 03/18/22 03/18/22 03/18/22 11:14 11:17 11:22 Temperature Pulse Rate 83 97 H 94 H Respiratory Rate Blood Pressure 136/66 O2 Sat by Pulse 97 98 Oximetry O2 Sat by Pulse Oximetry [ Bilateral] 03/18/22 03/18/22 03/18/22 11:25 11:27 11:29 Temperature 98.8 F Pulse Rate 88 Respiratory 20 Rate Blood Pressure O2 Sat by Pulse 99 Oximetry O2 Sat by Pulse 97 Oximetry [ Bilateral] 03/18/22 03/18/22 03/18/22 11:32 11:37 11:42 Temperature Pulse Rate 76 85 87 Respiratory Rate Blood Pressure O2 Sat by Pulse 98 99 99 Oximetry O2 Sat by Pulse Oximetry [ Bilateral] 03/18/22 03/18/22 03/18/22 11:47 11:52 11:57 Temperature Pulse Rate 90 84 83 Respiratory Rate Blood Pressure O2 Sat by Pulse 98 98 100 Oximetry O2 Sat by Pulse Oximetry [ Bilateral] 03/18/22 12:17 Temperature Pulse Rate 78 Respiratory Rate Blood Pressure 140/83 O2 Sat by Pulse Oximetry O2 Sat by Pulse Oximetry [ Bilateral] - Exam Breasts: normal Cardiovascular: Regular rate Lungs: Clear to auscultation, Normal air movement Abdomen: Present: normal appearance, soft Uterus: Present: normal, fundal height above umbilicus FHR: category 1 Uterine Contraction Monitor Mode: Palpation Uterine Contraction Pattern: Absent Extremities: normal Deep Tendon Reflex Grade: Normal +2 - Labs Labs: Abnormal Labs 0703/15/22 03/15/22 16:20 16:45 16:45 WBC 12.7 H RBC 3.45 L RDW 15.5 H Potassium Carbon Dioxide BUN Creatinine 0.4 L Glucose Uric Acid 2.9 L Alkaline Phosphatase Lactate Dehydrogenase 410 H Total Protein Albumin Urine Blood Moderate A 03/15/22 03/17/22 03/17/22 20:35 20:01 20:01 WBC 13.4 H RBC 3.32 L RDW Potassium 3.4 L Carbon Dioxide 19 L 21 L BUN 5 L 4 L Creatinine 0.3 L 0.4 L Glucose 105 H Uric Acid Alkaline Phosphatase 207 H Lactate Dehydrogenase Total Protein 5.8 L Albumin 3.0 L Urine Blood Laboratory Results - last 24 hr 03/17/22 03/17/22 20:01 20:01 WBC 13.4 H RBC 3.32 L Hgb 10.2 Hct 30.6 MCV 92 MCH 31 MCHC 34 RDW 14.9 Plt Count 213 Sodium 137 Potassium 3.7 Chloride 105.1 Carbon Dioxide 21 L Anion Gap 15 BUN 4 L Creatinine 0.4 L Estimated GFR > 60 BUN/Creatinine Ratio 10 Glucose 105 H Calcium 9.2 Total Bilirubin 0.20 AST 14 ALT 18 Alkaline Phosphatase 207 H Total Protein 5.8 L Albumin 3.0 L Albumin/Globulin Ratio 1.1
--- NOTE | 2022-03-19 08:22 | Progress Note ---
Assessment and Plan patient w/o complaints - denies NG/visual changes/epigastric pain, b/p's 120's-140/50's-90. b/p cuff set to take automatically Q1hr without nurse ensuring proper placement of cuff, occasional outlier with systolic of 160 noted. Discussed with nurse to check b/p q4hr when placing pt on NST to ensure accurate reading. reviewed plan of care, all questions addressed. Plan per [facility]: IUP at 33+4 weeks Severe preeclampsia by BP criteria Continue inpatient expectant management Delivery is advised at 34 0/7 weeks gestation - CN made aware 03/22 for IOL Pt will need a NICU consult -done 03/17/2022 Twice weekly BPP/MARION (04/17 done 03/16, ordered for today 03/19) , CBC/CMP (collected but not yet resulted 03/19) Initiate antihypertensive treatment if her BP is >160/105mmhg - Patient Problems (1) with 33 completed weeks gestation Current Visit: Yes Status: Acute (2) Advanced maternal age (AMA), 40 years or greater Current Visit: No Status: Acute (3) Pre-eclampsia during in third trimester, antepartum Current Visit: No Status: Acute Subjective - Subjective Date of service: 03/19/22 Principal diagnosis: IUp @ 33.4 ; pre-e Patient reports: movement normal, no new complaints, no loss of fluid, no vaginal bleeding, no contractions Objective - Vital Signs Vital Signs: Vital Signs - 12hr 03/18/22 03/18/22 03/18/22 20:17 21:27 22:17 Pulse Rate 99 H 91 H 83 Blood Pressure 161/74 128/84 136/84 O2 Sat by Pulse Oximetry 03/18/22 03/18/22 03/18/22 23:07 23:12 23:17 Pulse Rate 91 H 79 79 Blood Pressure O2 Sat by Pulse 99 98 97 Oximetry 03/18/22 03/18/22 03/18/22 23:19 23:22 23:27 Pulse Rate 76 82 82 Blood Pressure 143/85 O2 Sat by Pulse 98 97 Oximetry 03/18/22 03/18/22 03/18/22 23:32 23:37 23:42 Pulse Rate 86 85 89 Blood Pressure O2 Sat by Pulse 97 97 97 Oximetry 03/19/22 03/19/22 03/19/22 00:17 01:17 02:17 Pulse Rate 83 91 H 95 H Blood Pressure 136/80 122/59 138/58 O2 Sat by Pulse Oximetry 03/19/22 03/19/22 03/19/22 03:00 03:01 03:06 Pulse Rate 80 79 Blood Pressure O2 Sat by Pulse 83 L 89 99 Oximetry 03/19/22 03/19/22 03/19/22 03:11 03:16 03:17 Pulse Rate 86 80 81 Blood Pressure 141/78 O2 Sat by Pulse 97 98 93 Oximetry 03/19/22 03/19/22 03/19/22 03:21 03:26 03:31 Pulse Rate 79 86 75 Blood Pressure O2 Sat by Pulse 97 98 98 Oximetry 03/19/22 03/19/22 03/19/22 03:36 04:17 05:17 Pulse Rate 76 72 82 Blood Pressure 128/67 124/70 O2 Sat by Pulse 99 Oximetry 03/19/22 03/19/22 03/19/22 06:17 07:37 08:06 Pulse Rate 78 107 H 46 L Blood Pressure 135/70 128/86 O2 Sat by Pulse 83 L Oximetry 03/19/22 03/19/22 08:07 08:12 Pulse Rate 91 H 91 H Blood Pressure 145/90 O2 Sat by Pulse 83 L 99 Oximetry - Exam Cardiovascular: Regular rate Lungs: Normal air movement Abdomen: Present: normal appearance, soft Vulva: both: normal Uterus: Present: normal FHR: auscultation normal Uterine Contraction Monitor Mode: Palpation Uterine Contraction Pattern: Absent Uterine Tone Measurement Phase: Resting Extremities: normal Deep Tendon Reflex Grade: Normal +2 - Labs Labs: Abnormal Labs 03/15/22 03/15/22 03/15/22 16:20 16:45 16:45 WBC 12.7 H RBC 3.45 L RDW 15.5 H Potassium Carbon Dioxide BUN Creatinine 0.4 L Glucose Uric Acid 2.9 L Alkaline Phosphatase Lactate Dehydrogenase 410 H Total Protein Albumin Urine Blood Moderate A 03/15/22 03/17/22 03/17/22 20:35 20:01 20:01 WBC 13.4 H RBC 3.32 L RDW Potassium 3.4 L Carbon Dioxide 19 L 21 L BUN 5 L 4 L Creatinine 0.3 L 0.4 L Glucose 105 H Uric Acid Alkaline Phosphatase 207 H Lactate Dehydrogenase Total Protein 5.8 L Albumin 3.0 L Urine Blood
[2022-03-19 08:25] LABS: Hematocrit 31.5 % (30.3-42.9); Hemoglobin 10.4 gm/dl (10.1-14.3); Mean Corpuscular HGB Conc 33 % (30-34); Mean Corpuscular Volume 92 fl (79-97); Platelet Count 205 K/mm3 (140-440); Red Blood Count 3.42 M/mm3 (3.65-5.03); Red Cell Distribution Width 15.1 % (13.2-15.2)
[2022-03-19 08:45] LABS: Alanine Aminotransferase 14 units/L (7-56); Albumin 3.3 g/dL (3.9-5); Blood Urea Nitrogen 4 mg/dL (7-17); Calcium 9.2 mg/dL (8.4-10.2); Hemolysis Index 0
[2022-03-19 08:55] LABS: BUN/Creatinine Ratio 10
--- NOTE | 2022-03-19 10:06 | Ultrasound Report ---
Biophysical profile INDICATION: well-being COMPARISON: 03/17/2021. FINDINGS: heart rate 1 45 bpm. movements 2, breathing 2 tone 2. Qualitative a mniotic fluid volume 2 IMPRESSION: Biophysical profile 8 out of 8. Signer Name: Raffaele Villela MD Signed: 03/19/2022 10:01 AM Workstation Name: [id number]
--- NOTE | 2022-03-19 10:07 | Ultrasound Report ---
Limited OB ultrasound INDICATION: Amniotic fluid index COMPARISON: 03/11/2022. MARION total measures 6.1 cm. Single live intrauterine 33 weeks 4 days. IMPRESSION: Amniotic fluid index measures 6.1 cm. This appears decreased given age. On prior examination th is measured 7.1 cm. Signer Name: Raffaele Villela MD Signed: 03/19/2022 10:02 AM Workstation Name: [id number]
[2022-03-19] MEDS: PRENATAL VIT27-FE FUMARATE-FOLIC ACID VIT TAB PO SCH (10:45)
--- NOTE | 2022-03-19 14:38 | Progress Note ---
Assessment and Plan IUP at 33 4/7 weeks' Severe preeclampsia Decreased MARION AMA Continue expectant management, twice weekly MARION Deliver by 34 weeks' Subjective - Subjective Date of service: 03/19/22 Principal diagnosis: IUp @ 33.4 ; pre-e Interval history: Feeling well, fetus active Patient reports: movement normal, no new complaints, no loss of fluid, no vaginal bleeding, no contractions Objective - Vital Signs Vital Signs: Vital Signs - 12hr 03/19/22 03/19/22 03/19/22 03:00 03:01 03:06 Temperature Pulse Rate 80 79 Respiratory Rate Blood Pressure O2 Sat by Pulse 83 L 89 99 Oximetry 03/19/22 03/19/22 03/19/22 03:11 03:16 03:17 Temperature Pulse Rate 86 80 81 Respiratory Rate Blood Pressure 141/78 O2 Sat by Pulse 97 98 93 Oximetry 03/19/22 03/19/22 03/19/22 03:21 03:26 03:31 Temperature Pulse Rate 79 86 75 Respiratory Rate Blood Pressure O2 Sat by Pulse 97 98 98 Oximetry 03/19/22 03/19/22 03/19/22 03:36 04:17 05:17 Temperature Pulse Rate 76 72 82 Respiratory Rate Blood Pressure 128/67 124/70 O2 Sat by Pulse 99 Oximetry 03/19/22 03/19/22 03/19/22 06:17 07:37 08:06 Temperature Pulse Rate 78 107 H 46 L Respiratory Rate Blood Pressure 135/70 128/86 O2 Sat by Pulse 83 L Oximetry 03/19/22 03/19/22 03/19/22 08:07 08:12 08:17 Temperature Pulse Rate 91 H 91 H 88 Respiratory Rate Blood Pressure 145/90 138/87 O2 Sat by Pulse 83 L 99 99 Oximetry 03/19/22 03/19/22 03/19/22 08:22 08:27 08:32 Temperature Pulse Rate 87 85 80 Respiratory Rate Blood Pressure O2 Sat by Pulse 98 98 97 Oximetry 03/19/22 03/19/22 03/19/22 08:37 08:42 08:47 Temperature Pulse Rate 82 86 90 Respiratory Rate Blood Pressure O2 Sat by Pulse 98 99 98 Oximetry 03/19/22 03/19/22 03/19/22 08:51 08:52 08:57 Temperature 98.8 F Pulse Rate 82 87 Respiratory 16 Rate Blood Pressure O2 Sat by Pulse 96 98 Oximetry 03/19/22 03/19/22 03/19/22 09:02 09:07 09:12 Temperature Pulse Rate 80 88 79 Respiratory Rate Blood Pressure O2 Sat by Pulse 98 97 98 Oximetry 03/19/22 03/19/22 03/19/22 09:17 09:22 09:27 Temperature Pulse Rate 88 85 89 Respiratory Rate Blood Pressure 138/92 O2 Sat by Pulse 98 97 96 Oximetry 03/19/22 03/19/22 03/19/22 09:32 09:37 12:32 Temperature Pulse Rate 86 88 79 Respiratory Rate Blood Pressure O2 Sat by Pulse 96 97 81 L Oximetry 03/19/22 03/19/22 03/19/22 12:33 12:34 12:37 Temperature Pulse Rate 83 92 H Respiratory Rate Blood Pressure 135/82 O2 Sat by Pulse 90 99 Oximetry 03/19/22 03/19/22 03/19/22 12:42 12:47 12:52 Temperature Pulse Rate 86 87 81 Respiratory Rate Blood Pressure O2 Sat by Pulse 98 97 97 Oximetry 03/19/22 03/19/22 03/19/22 12:57 13:02 13:07 Temperature Pulse Rate 81 105 H 100 H Respiratory Rate Blood Pressure O2 Sat by Pulse 97 98 98 Oximetry 03/19/22 03/19/22 03/19/22 13:11 13:12 13:17 Temperature 98.4 F Pulse Rate 92 H 90 Respiratory Rate Blood Pressure O2 Sat by Pulse 98 97 Oximetry 03/19/22 03/19/22 03/19/22 13:22 13:27 13:32 Temperature Pulse Rate 80 87 85 Respiratory Rate Blood Pressure O2 Sat by Pulse 97 98 97 Oximetry 03/19/22 03/19/22 03/19/22 13:37 13:42 13:47 Temperature Pulse Rate 84 82 84 Respiratory Rate Blood Pressure O2 Sat by Pulse 97 98 98 Oximetry 03/19/22 03/19/22 13:51 13:57 Temperature Pulse Rate 63 72 Respiratory Rate Blood Pressure O2 Sat by Pulse 79 L 74 L Oximetry - Exam Narrative Exam: Abd soft, nontender; FHT's reassuring earlier; US today: BPP 8/8; MARION 6.1 cm; labs today w/o evidence of HELLP Syndrome or renal insufficiency - Labs Labs: Abnormal Labs 03/15/22 03/15/22 03/15/22 16:20 16:45 16:45 WBC 12.7 H RBC 3.45 L RDW 15.5 H Sodium Potassium Carbon Dioxide BUN Creatinine 0.4 L Glucose Uric Acid 2.9 L Alkaline Phosphatase Lactate Dehydrogenase 410 H Total Protein Albumin Urine Blood Moderate A 03/15/22 03/17/22 03/17/22 20:35 20:01 20:01 WBC 13.4 H RBC 3.32 L RDW Sodium Potassium 3.4 L Carbon Dioxide 19 L 21 L BUN 5 L 4 L Creatinine 0.3 L 0.4 L Glucose 105 H Uric Acid Alkaline Phosphatase 207 H Lactate Dehydrogenase Total Protein 5.8 L Albumin 3.0 L Urine Blood 03/19/22 03/19/22 07:56 07:56 WBC 13.8 H RBC 3.42 L RDW Sodium 135 L Potassium Carbon Dioxide 21 L BUN 4 L Creatinine 0.4 L Glucose Uric Acid Alkaline Phosphatase 216 H Lactate Dehydrogenase Total Protein 5.8 L Albumin 3.3 L Urine Blood Laboratory Results - last 24 hr 03/19/22 03/19/22 07:56 07:56 WBC 13.8 H RBC 3.42 L Hgb 10.4 Hct 31.5 MCV 92 MCH 30 MCHC 33 RDW 15.1 Plt Count 205 Sodium 135 L Potassium 3.7 Chloride 103.2 Carbon Dioxide 21 L Anion Gap 15 BUN 4 L Creatinine 0.4 L Estimated GFR > 60 BUN/Creatinine Ratio 10 Glucose 87 Calcium 9.2 Total Bilirubin 0.30 AST 15 ALT 14 Alkaline Phosphatase 216 H Total Protein 5.8 L Albumin 3.3 L Albumin/Globulin Ratio 1.3
--- NOTE | 2022-03-20 07:47 | Progress Note ---
Assessment and Plan A: 41 y.o. @ 33.5 wks, Severe Pre Eclampsia - Patient Problems (1) Pre-eclampsia during in third trimester, antepartum Current Visit: No Status: Acute Plan to address problem: Continue to monitor blood pressures Continue to monitor for worsening s/sx of Pre-eclampsia. Continue inpatient expectant management Delivery is advised at 34 0/7 weeks gestation -IOL scheduled for 03/22 Pt will need a NICU consult -done 03/17/2022 Twice weekly BPP/MARION (04/17, although MARION noted to be 6.1), ordered next for 03/22 before IOL begins. Twice weekly CBC/CMP: last completed on 03/19 and was WNL. Ordered next for 03/22 before IOL begins. Initiate antihypertensive treatment if her BP is >160/105mmhg (2) with 33 completed weeks gestation Current Visit: Yes Status: Acute Plan to address problem: Continue to monitor status through NSTs until IOL. Subjective - Subjective Date of service: 03/20/22 Principal diagnosis: IUp @ 33.5 ; pre-e Interval history: Pt denies NG, blurred vision, spots before her eyes, chest pain, shortness of breath, upper abdominal pain, vaginal bleeding, ctxs, LOF. Patient reports: movement normal, no new complaints, no loss of fluid, no vaginal bleeding, no contractions Objective - Vital Signs Vital Signs: Vital Signs - 12hr 03/19/22 03/19/22 03/19/22 20:20 20:22 20:23 Temperature 98.2 F Pulse Rate 89 96 H 102 H Respiratory 17 Rate Blood Pressure 139/82 Blood Pressure 139/82 [Left] O2 Sat by Pulse 98 98 Oximetry O2 Sat by Pulse 98 Oximetry [ Bilateral] 03/19/22 03/19/22 03/19/22 20:25 20:30 20:35 Temperature Pulse Rate 95 H 88 94 H Respiratory Rate Blood Pressure Blood Pressure [Left] O2 Sat by Pulse 98 98 98 Oximetry O2 Sat by Pulse Oximetry [ Bilateral] 03/19/22 03/19/22 03/19/22 20:40 20:45 20:50 Temperature Pulse Rate 91 H 95 H 93 H Respiratory Rate Blood Pressure Blood Pressure [Left] O2 Sat by Pulse 98 98 98 Oximetry O2 Sat by Pulse Oximetry [ Bilateral] 03/19/22 03/19/22 03/19/22 20:55 21:00 21:05 Temperature Pulse Rate 88 85 92 H Respiratory Rate Blood Pressure Blood Pressure [Left] O2 Sat by Pulse 97 98 98 Oximetry O2 Sat by Pulse Oximetry [ Bilateral] 03/19/22 03/19/22 03/19/22 21:10 21:15 21:20 Temperature Pulse Rate 99 H 103 H 81 Respiratory Rate Blood Pressure Blood Pressure [Left] O2 Sat by Pulse 97 97 98 Oximetry O2 Sat by Pulse Oximetry [ Bilateral] 03/19/22 03/19/22 03/19/22 21:25 21:30 21:35 Temperature Pulse Rate 90 91 H 92 H Respiratory Rate Blood Pressure 162/90 Blood Pressure [Left] O2 Sat by Pulse 97 97 98 Oximetry O2 Sat by Pulse Oximetry [ Bilateral] 03/19/22 03/19/22 03/19/22 21:40 21:45 21:50 Temperature Pulse Rate 93 H 93 H 98 H Respiratory Rate Blood Pressure Blood Pressure [Left] O2 Sat by Pulse 97 98 97 Oximetry O2 Sat by Pulse Oximetry [ Bilateral] 03/19/22 03/19/22 03/19/22 21:57 22:02 22:07 Temperature Pulse Rate 87 84 78 Respiratory Rate Blood Pressure Blood Pressure [Left] O2 Sat by Pulse 98 98 99 Oximetry O2 Sat by Pulse Oximetry [ Bilateral] 03/19/22 03/19/22 03/19/22 22:12 22:17 22:26 Temperature Pulse Rate 83 84 86 Respiratory Rate Blood Pressure Blood Pressure [Left] O2 Sat by Pulse 99 99 97 Oximetry O2 Sat by Pulse Oximetry [ Bilateral] 03/19/22 03/19/22 03/19/22 22:31 22:34 22:36 Temperature Pulse Rate 85 87 98 H Respiratory Rate Blood Pressure Blood Pressure [Left] O2 Sat by Pulse 98 89 96 Oximetry O2 Sat by Pulse Oximetry [ Bilateral] 03/19/22 03/19/22 03/19/22 22:41 22:42 22:46 Temperature Pulse Rate 84 39 L 83 Respiratory Rate Blood Pressure 147/84 Blood Pressure [Left] O2 Sat by Pulse 98 76 L Oximetry O2 Sat by Pulse Oximetry [ Bilateral] 03/19/22 03/19/22 03/19/22 23:46 23:47 23:51 Temperature 98.7 F Pulse Rate 58 L 72 Respiratory 18 Rate Blood Pressure Blood Pressure [Left] O2 Sat by Pulse 90 97 Oximetry O2 Sat by Pulse Oximetry [ Bilateral] 03/19/22 03/19/22 03/20/22 23:52 23:57 00:02 Temperature Pulse Rate 74 82 77 Respiratory Rate Blood Pressure Blood Pressure [Left] O2 Sat by Pulse 98 96 96 Oximetry O2 Sat by Pulse Oximetry [ Bilateral] 03/20/22 03/20/22 03/20/22 00:07 00:12 00:17 Temperature Pulse Rate 72 80 79 Respiratory Rate Blood Pressure Blood Pressure [Left] O2 Sat by Pulse 96 95 95 Oximetry O2 Sat by Pulse Oximetry [ Bilateral] 03/20/22 03/20/22 03/20/22 00:22 00:27 00:28 Temperature Pulse Rate 80 78 79 Respiratory Rate Blood Pressure Blood Pressure [Left] O2 Sat by Pulse 95 95 94 Oximetry O2 Sat by Pulse Oximetry [ Bilateral] 03/20/22 03/20/22 03/20/22 00:32 00:33 00:37 Temperature Pulse Rate 78 78 83 Respiratory Rate Blood Pressure Blood Pressure [Left] O2 Sat by Pulse 94 94 96 Oximetry O2 Sat by Pulse Oximetry [ Bilateral] 03/20/22 03/20/22 03/20/22 00:42 00:43 00:47 Temperature Pulse Rate 82 94 H 74 Respiratory Rate Blood Pressure Blood Pressure [Left] O2 Sat by Pulse 95 91 95 Oximetry O2 Sat by Pulse Oximetry [ Bilateral] 03/20/22 03/20/22 03/20/22 00:50 04:36 04:38 Temperature Pulse Rate 79 143 H 78 Respiratory Rate Blood Pressure 134/84 Blood Pressure [Left] O2 Sat by Pulse 94 80 L Oximetry O2 Sat by Pulse Oximetry [ Bilateral] 03/20/22 03/20/22 03/20/22 04:41 04:46 04:51 Temperature 98.0 F Pulse Rate 80 77 75 Respiratory 17 Rate Blood Pressure Blood Pressure [Left] O2 Sat by Pulse 97 97 97 Oximetry O2 Sat by Pulse Oximetry [ Bilateral] 03/20/22 03/20/22 03/20/22 04:56 05:01 05:06 Temperature Pulse Rate 82 80 86 Respiratory Rate Blood Pressure Blood Pressure [Left] O2 Sat by Pulse 97 97 95 Oximetry O2 Sat by Pulse Oximetry [ Bilateral] 03/20/22 03/20/22 03/20/22 05:11 05:16 05:21 Temperature Pulse Rate 73 93 H 79 Respiratory Rate Blood Pressure Blood Pressure [Left] O2 Sat by Pulse 97 97 97 Oximetry O2 Sat by Pulse Oximetry [ Bilateral] 03/20/22 03/20/22 03/20/22 05:26 05:31 05:36 Temperature Pulse Rate 84 77 82 Respiratory Rate Blood Pressure Blood Pressure [Left] O2 Sat by Pulse 96 97 97 Oximetry O2 Sat by Pulse Oximetry [ Bilateral] 03/20/22 03/20/22 03/20/22 05:41 05:46 05:51 Temperature Pulse Rate 80 79 78 Respiratory Rate Blood Pressure Blood Pressure [Left] O2 Sat by Pulse 98 98 97 Oximetry O2 Sat by Pulse Oximetry [ Bilateral] - Exam Narrative Exam: Blood pressures have been noted to be 130's-140's/70-80's. Cardiovascular: Regular rate Lungs: Normal air movement Abdomen: Present: normal appearance, soft FHR: category 1 (NSTs have been category 1, no contractions noted. ) Extremities: edema (+1 edema noted to lower bilateral extremities. ) Deep Tendon Reflex Grade: Normal +2 - Labs Labs: Abnormal Labs 03/15/22 03/15/22 03/15/22 16:20 16:45 16:45 WBC 12.7 H RBC 3.45 L RDW 15.5 H Sodium Potassium Carbon Dioxide BUN Creatinine 0.4 L Glucose Uric Acid 2.9 L Alkaline Phosphatase Lactate Dehydrogenase 410 H Total Protein Albumin Urine Blood Moderate A 03/15/22 03/17/22 03/17/22 20:35 20:01 20:01 WBC 13.4 H RBC 3.32 L RDW Sodium Potassium 3.4 L Carbon Dioxide 19 L 21 L BUN 5 L 4 L Creatinine 0.3 L 0.4 L Glucose 105 H Uric Acid Alkaline Phosphatase 207 H Lactate Dehydrogenase Total Protein 5.8 L Albumin 3.0 L Urine Blood 03/19/22 03/19/22 07:56 07:56 WBC 13.8 H RBC 3.42 L RDW Sodium 135 L Potassium Carbon Dioxide 21 L BUN 4 L Creatinine 0.4 L Glucose Uric Acid Alkaline Phosphatase 216 H Lactate Dehydrogenase Total Protein 5.8 L Albumin 3.3 L Urine Blood Laboratory Results - last 24 hr 03/19/22 03/19/22 07:56 07:56 WBC 13.8 H RBC 3.42 L Hgb 10.4 Hct 31.5 MCV 92 MCH 30 MCHC 33 RDW 15.1 Plt Count 205 Sodium 135 L Potassium 3.7 Chloride 103.2 Carbon Dioxide 21 L Anion Gap 15 BUN 4 L Creatinine 0.4 L Estimated GFR > 60 BUN/Creatinine Ratio 10 Glucose 87 Calcium 9.2 Total Bilirubin 0.30 AST 15 ALT 14 Alkaline Phosphatase 216 H Total Protein 5.8 L Albumin 3.3 L Albumin/Globulin Ratio 1.3
--- NOTE | 2022-03-20 09:14 | Event Note ---
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 Will anticipate IOl on 03/22/22 as scheduled. s/p NICU consult with thanks and also MFM consultation. Will con't to follow recommendations.
[2022-03-20] MEDS: PRENATAL VIT27-FE FUMARATE-FOLIC ACID VIT TAB PO SCH (11:31)
--- NOTE | 2022-03-21 07:25 | Progress Note ---
Assessment and Plan AMFM IUP at 33 weeks Severe preeclampsia by BP criteria AMA REC: Continue inpatient expectant management Delivery is advised at 34 0/7 weeks gestation Repeat US for MARION BPP Twice weeklyCBC/CMP Subjective - Subjective Date of service: 03/21/22 Principal diagnosis: IUp @ 33.6 ; pre-e Interval history: Denied NG, visual changes, CP, RUQ pain Patient reports: movement normal, no new complaints, no loss of fluid, no vaginal bleeding, no contractions Objective - Vital Signs Vital Signs: Vital Signs - 12hr 03/20/22 03/20/22 03/20/22 19:58 20:03 20:08 Temperature Pulse Rate 95 H 92 H 81 Blood Pressure 129/78 O2 Sat by Pulse 97 98 99 Oximetry O2 Sat by Pulse Oximetry [ Bilateral] 03/20/22 03/20/22 03/20/22 20:13 20:16 20:18 Temperature Pulse Rate 89 85 Blood Pressure O2 Sat by Pulse 99 98 Oximetry O2 Sat by Pulse 99 Oximetry [ Bilateral] 03/20/22 03/20/22 03/20/22 20:23 20:28 20:33 Temperature 98.5 F Pulse Rate 91 H 103 H 85 Blood Pressure O2 Sat by Pulse 98 98 99 Oximetry O2 Sat by Pulse Oximetry [ Bilateral] 03/20/22 03/20/22 03/21/22 20:38 20:43 00:06 Temperature Pulse Rate 92 H 90 72 Blood Pressure O2 Sat by Pulse 99 98 83 L Oximetry O2 Sat by Pulse Oximetry [ Bilateral] 03/21/22 03/21/22 03/21/22 00:07 00:08 00:11 Temperature Pulse Rate 76 88 94 H Blood Pressure 113/73 O2 Sat by Pulse 83 L 98 Oximetry O2 Sat by Pulse Oximetry [ Bilateral] 03/21/22 03/21/22 03/21/22 00:16 00:21 00:26 Temperature Pulse Rate 82 89 90 Blood Pressure O2 Sat by Pulse 98 98 98 Oximetry O2 Sat by Pulse Oximetry [ Bilateral] 03/21/22 03/21/22 03/21/22 00:31 00:36 00:41 Temperature Pulse Rate 86 85 91 H Blood Pressure O2 Sat by Pulse 98 97 97 Oximetry O2 Sat by Pulse Oximetry [ Bilateral] 03/21/22 03/21/22 03/21/22 00:46 00:48 03:55 Temperature Pulse Rate 89 69 104 H Blood Pressure O2 Sat by Pulse 97 80 L 88 Oximetry O2 Sat by Pulse Oximetry [ Bilateral] 03/21/22 03/21/22 03/21/22 03:58 04:00 04:01 Temperature Pulse Rate 71 83 87 Blood Pressure 129/80 O2 Sat by Pulse 97 92 Oximetry O2 Sat by Pulse Oximetry [ Bilateral] 03/21/22 03/21/22 03/21/22 04:05 04:10 04:15 Temperature Pulse Rate 87 78 81 Blood Pressure O2 Sat by Pulse 97 96 98 Oximetry O2 Sat by Pulse Oximetry [ Bilateral] 03/21/22 03/21/22 03/21/22 04:20 04:25 04:30 Temperature Pulse Rate 76 76 79 Blood Pressure O2 Sat by Pulse 96 97 96 Oximetry O2 Sat by Pulse Oximetry [ Bilateral] - Exam Narrative Exam: laying in bed NAD FHR: other (pending) - Labs Labs: Abnormal Labs 03/15/22 03/15/22 03/15/22 16:20 16:45 16:45 WBC 12.7 H RBC 3.45 L RDW 15.5 H Sodium Potassium Carbon Dioxide BUN Creatinine 0.4 L Glucose Uric Acid 2.9 L Alkaline Phosphatase Lactate Dehydrogenase 410 H Total Protein Albumin Urine Blood Moderate A 03/15/22 03/17/22 03/17/22 20:35 20:01 20:01 WBC 13.4 H RBC 3.32 L RDW Sodium Potassium 3.4 L Carbon Dioxide 19 L 21 L BUN 5 L 4 L Creatinine 0.3 L 0.4 L Glucose 105 H Uric Acid Alkaline Phosphatase 207 H Lactate Dehydrogenase Total Protein 5.8 L Albumin 3.0 L Urine Blood 03/19/22 03/19/22 07:56 07:56 WBC 13.8 H RBC 3.42 L RDW Sodium 135 L Potassium Carbon Dioxide 21 L BUN 4 L Creatinine 0.4 L Glucose Uric Acid Alkaline Phosphatase 216 H Lactate Dehydrogenase Total Protein 5.8 L Albumin 3.3 L Urine Blood - Results US- obstetric: report reviewed (03/19)
--- NOTE | 2022-03-21 07:44 | Progress Note ---
Assessment and Plan patient resting without complaints, denies s/s pre-e. + FM. discussed expectations for IOL tomorrow. All questions addressed. Plan per AMF: IUP at 33+6 weeks Severe preeclampsia by BP criteria Continue inpatient expectant management Delivery is advised at 34 0/7 weeks gestation - CN made aware 03/22 for IOL Pt will need a NICU consult -done 03/17/2022 Twice weekly BPP/MARION (04/17 done 03/19, ordered for today 03/22) , CBC/CMP (done 03/19, will repeat with T&S 03/22) Initiate antihypertensive treatment if her BP is >160/105mmhg - Patient Problems (1) with 33 completed weeks gestation Current Visit: Yes Status: Acute (2) Advanced maternal age (AMA), 40 years or greater Current Visit: No Status: Acute (3) Pre-eclampsia during in third trimester, antepartum Current Visit: No Status: Acute Subjective - Subjective Date of service: 03/21/22 Principal diagnosis: IUp @ 33.6 ; pre-e Patient reports: movement normal, no new complaints, no loss of fluid, no vaginal bleeding, no contractions Objective - Vital Signs Vital Signs: Vital Signs - 12hr 03/20/22 03/20/22 03/20/22 19:58 20:03 20:08 Temperature Pulse Rate 95 H 92 H 81 Blood Pressure 129/78 O2 Sat by Pulse 97 98 99 Oximetry O2 Sat by Pulse Oximetry [ Bilateral] 03/20/22 03/20/22 03/20/22 20:13 20:16 20:18 Temperature Pulse Rate 89 85 Blood Pressure O2 Sat by Pulse 99 98 Oximetry O2 Sat by Pulse 99 Oximetry [ Bilateral] 03/20/22 03/20/22 03/20/22 20:23 20:28 20:33 Temperature 98.5 F Pulse Rate 91 H 103 H 85 Blood Pressure O2 Sat by Pulse 98 98 99 Oximetry O2 Sat by Pulse Oximetry [ Bilateral] 03/20/22 03/20/22 03/21/22 20:38 20:43 00:06 Temperature Pulse Rate 92 H 90 72 Blood Pressure O2 Sat by Pulse 99 98 83 L Oximetry O2 Sat by Pulse Oximetry [ Bilateral] 03/21/22 03/21/22 03/21/22 00:07 00:08 00:11 Temperature Pulse Rate 76 88 94 H Blood Pressure 113/73 O2 Sat by Pulse 83 L 98 Oximetry O2 Sat by Pulse Oximetry [ Bilateral] 03/21/22 03/21/22 03/21/22 00:16 00:21 00:26 Temperature Pulse Rate 82 89 90 Blood Pressure O2 Sat by Pulse 98 98 98 Oximetry O2 Sat by Pulse Oximetry [ Bilateral] 03/21/22 03/21/22 03/21/22 00:31 00:36 00:41 Temperature Pulse Rate 86 85 91 H Blood Pressure O2 Sat by Pulse 98 97 97 Oximetry O2 Sat by Pulse Oximetry [ Bilateral] 03/21/22 03/21/22 03/21/22 00:46 00:48 03:55 Temperature Pulse Rate 89 69 104 H Blood Pressure O2 Sat by Pulse 97 80 L 88 Oximetry O2 Sat by Pulse Oximetry [ Bilateral] 03/21/22 03/21/22 03/21/22 03:58 04:00 04:01 Temperature Pulse Rate 71 83 87 Blood Pressure 129/80 O2 Sat by Pulse 97 92 Oximetry O2 Sat by Pulse Oximetry [ Bilateral] 03/21/22 03/21/22 03/21/22 04:05 04:10 04:15 Temperature Pulse Rate 87 78 81 Blood Pressure O2 Sat by Pulse 97 96 98 Oximetry O2 Sat by Pulse Oximetry [ Bilateral] 03/21/22 03/21/22 03/21/22 04:20 04:25 04:30 Temperature Pulse Rate 76 76 79 Blood Pressure O2 Sat by Pulse 96 97 96 Oximetry O2 Sat by Pulse Oximetry [ Bilateral] - Exam Cardiovascular: Regular rate Lungs: Normal air movement Abdomen: Present: normal appearance, soft Uterus: Present: normal FHR: category 1 Uterine Contraction Monitor Mode: Palpation Uterine Tone Measurement Phase: Resting Extremities: normal Deep Tendon Reflex Grade: Normal +2 - Labs Labs: Abnormal Labs 03/15/22 03/15/22 03/15/22 16:20 16:45 16:45 WBC 12.7 H RBC 3.45 L RDW 15.5 H Sodium Potassium Carbon Dioxide BUN Creatinine 0.4 L Glucose Uric Acid 2.9 L Alkaline Phosphatase Lactate Dehydrogenase 410 H Total Protein Albumin Urine Blood Moderate A 03/15/22 03/17/22 03/17/22 20:35 20:01 20:01 WBC 13.4 H RBC 3.32 L RDW Sodium Potassium 3.4 L Carbon Dioxide 19 L 21 L BUN 5 L 4 L Creatinine 0.3 L 0.4 L Glucose 105 H Uric Acid Alkaline Phosphatase 207 H Lactate Dehydrogenase Total Protein 5.8 L Albumin 3.0 L Urine Blood 03/19/22 03/19/22 07:56 07:56 WBC 13.8 H RBC 3.42 L RDW Sodium 135 L Potassium Carbon Dioxide 21 L BUN 4 L Creatinine 0.4 L Glucose Uric Acid Alkaline Phosphatase 216 H Lactate Dehydrogenase Total Protein 5.8 L Albumin 3.3 L Urine Blood
[2022-03-21] MEDS: PRENATAL VIT27-FE FUMARATE-FOLIC ACID VIT TAB PO SCH (09:29)
[2022-03-21] MEDS ORDERED: ACETAMINOPHEN 325 MG TAB PO PRN (16:19)
--- NOTE | 2022-03-22 07:44 | Progress Note ---
Assessment and Plan patient resting without complaints, denies s/s pre-e. + FM. discussed expectations for serial IOL. questions addressed. Plan per AMFM: IUP at 34+0 weeks Severe preeclampsia by BP criteria Delivery is advised at 34 0/7 weeks gestation- start IOL today with cervidil for cervical ripening NICU consult -done 03/17/2022 Twice weekly BPP/MARION (04/17 done 03/19, ordered for today 03/22) , CBC/CMP (done 03/19, will repeat with T&S 03/22) Initiate antihypertensive treatment if her BP is >160/105mmhg - Patient Problems (1) with 33 completed weeks gestation Current Visit: Yes Status: Acute (2) Advanced maternal age (AMA), 40 years or greater Current Visit: No Status: Acute (3) Pre-eclampsia during in third trimester, antepartum Current Visit: No Status: Acute Subjective - Subjective Date of service: 03/22/22 Principal diagnosis: IUp @ 34+0; pre-e Patient reports: movement normal, no new complaints, no loss of fluid, no vaginal bleeding, no contractions Objective - Vital Signs Vital Signs: Vital Signs - 12hr 03/21/22 03/21/22 03/21/22 19:50 19:51 19:52 Temperature 98.5 F Pulse Rate 95 H 97 H Respiratory 14 Rate Blood Pressure 141/91 Blood Pressure [Left] O2 Sat by Pulse 100 99 Oximetry O2 Sat by Pulse Oximetry [ Bilateral] 03/21/22 03/21/22 03/21/22 19:56 19:57 20:01 Temperature Pulse Rate 100 H 100 H Respiratory Rate Blood Pressure Blood Pressure [Left] O2 Sat by Pulse 98 98 Oximetry O2 Sat by Pulse 99 Oximetry [ Bilateral] 03/21/22 03/21/22 03/21/22 20:06 20:11 20:16 Temperature Pulse Rate 103 H 105 H 115 H Respiratory Rate Blood Pressure Blood Pressure [Left] O2 Sat by Pulse 98 96 98 Oximetry O2 Sat by Pulse Oximetry [ Bilateral] 03/21/22 03/21/22 03/22/22 20:21 20:26 00:17 Temperature Pulse Rate 101 H 103 H Respiratory Rate Blood Pressure Blood Pressure [Left] O2 Sat by Pulse 98 98 82 L Oximetry O2 Sat by Pulse Oximetry [ Bilateral] 03/22/22 03/22/2222 00:18 00:21 00:22 Temperature 98.4 F Pulse Rate 63 61 Respiratory 18 Rate Blood Pressure 124/76 Blood Pressure 124/76 [Left] O2 Sat by Pulse 98 6 L 89 Oximetry O2 Sat by Pulse Oximetry [ Bilateral] 03/22/22 03/22/22 03/22/22 00:26 00:28 00:31 Temperature Pulse Rate 136 H 76 Respiratory Rate Blood Pressure Blood Pressure [Left] O2 Sat by Pulse 82 L 82 L 82 L Oximetry O2 Sat by Pulse Oximetry [ Bilateral] 03/22/22 03/22/22 03/22/22 00:36 00:41 00:46 Temperature Pulse Rate 110 H 106 H 107 H Respiratory Rate Blood Pressure Blood Pressure [Left] O2 Sat by Pulse 98 98 99 Oximetry O2 Sat by Pulse Oximetry [ Bilateral] 03/22/22 03/22/22 03/22/22 00:51 00:56 01:01 Temperature Pulse Rate 118 H 106 H 110 H Respiratory Rate Blood Pressure Blood Pressure [Left] O2 Sat by Pulse 98 98 98 Oximetry O2 Sat by Pulse Oximetry [ Bilateral] 03/22/22 03/22/22 03/22/22 04:25 04:30 04:35 Temperature 99.0 F Pulse Rate 95 H 95 H 88 Respiratory 18 Rate Blood Pressure 134/86 Blood Pressure 134/86 [Left] O2 Sat by Pulse 97 97 97 Oximetry O2 Sat by Pulse Oximetry [ Bilateral] 03/22/22 03/22/22 03/22/22 04:40 04:45 04:50 Temperature Pulse Rate 95 H 90 95 H Respiratory Rate Blood Pressure Blood Pressure [Left] O2 Sat by Pulse 97 96 96 Oximetry O2 Sat by Pulse Oximetry [ Bilateral] 03/22/22 03/22/22 03/22/22 04:54 04:55 05:00 Temperature Pulse Rate 67 99 H Respiratory Rate Blood Pressure Blood Pressure [Left] O2 Sat by Pulse 88 96 94 Oximetry O2 Sat by Pulse Oximetry [ Bilateral] 03/22/22 03/22/22 03/22/22 05:05 05:10 05:15 Temperature Pulse Rate 94 H 90 91 H Respiratory Rate Blood Pressure Blood Pressure [Left] O2 Sat by Pulse 96 95 95 Oximetry O2 Sat by Pulse Oximetry [ Bilateral] 03/22/22 03/22/22 03/22/22 05:20 05:23 05:25 Temperature Pulse Rate 82 83 90 Respiratory Rate Blood Pressure Blood Pressure [Left] O2 Sat by Pulse 95 94 94 Oximetry O2 Sat by Pulse Oximetry [ Bilateral] 03/22/22 03/22/22 03/22/22 05:29 05:30 05:35 Temperature Pulse Rate 79 93 H 82 Respiratory Rate Blood Pressure Blood Pressure [Left] O2 Sat by Pulse 94 95 95 Oximetry O2 Sat by Pulse Oximetry [ Bilateral] 03/22/22 03/22/22 03/22/22 05:36 05:40 05:45 Temperature Pulse Rate 86 92 H 86 Respiratory Rate Blood Pressure Blood Pressure [Left] O2 Sat by Pulse 94 97 97 Oximetry O2 Sat by Pulse Oximetry [ Bilateral] 03/22/22 03/22/22 07:32 07:33 Temperature Pulse Rate 95 H 96 H Respiratory Rate Blood Pressure 133/86 Blood Pressure [Left] O2 Sat by Pulse 98 Oximetry O2 Sat by Pulse Oximetry [ Bilateral] - Exam Cardiovascular: Regular rate Lungs: Normal air movement Abdomen: Present: normal appearance, soft FHR: auscultation normal Extremities: normal Deep Tendon Reflex Grade: Normal +2 - Labs Labs: Abnormal Labs 03/15/22 03/15/22 03/15/22 16:20 16:45 16:45 WBC 12.7 H RBC 3.45 L RDW 15.5 H Sodium Potassium Carbon Dioxide BUN Creatinine 0.4 L Glucose Uric Acid 2.9 L Alkaline Phosphatase Lactate Dehydrogenase 410 H Total Protein Albumin Urine Blood Moderate A 03/15/22 03/17/22 03/17/22 20:35 20:01 20:01 WBC 13.4 H RBC 3.32 L RDW Sodium Potassium 3.4 L Carbon Dioxide 19 L 21 L BUN 5 L 4 L Creatinine 0.3 L 0.4 L Glucose 105 H Uric Acid Alkaline Phosphatase 207 H Lactate Dehydrogenase Total Protein 5.8 L Albumin 3.0 L Urine Blood 03/19/22 03/19/22 07:56 07:56 WBC 13.8 H RBC 3.42 L RDW Sodium 135 L Potassium Carbon Dioxide 21 L BUN 4 L Creatinine 0.4 L Glucose Uric Acid Alkaline Phosphatase 216 H Lactate Dehydrogenase Total Protein 5.8 L Albumin 3.3 L Urine Blood
[2022-03-22] MEDS ORDERED: DINOPROSTONE 10 MG VAG SUPP VG SCH (08:00)
[2022-03-22] MEDS: PRENATAL VIT27-FE FUMARATE-FOLIC ACID VIT TAB PO SCH (10:35)
[2022-03-22 13:40] LABS: Alanine Aminotransferase 11 units/L (7-56); Albumin 3.4 g/dL (3.9-5); Blood Urea Nitrogen 6 mg/dL (7-17); Calcium 9.9 mg/dL (8.4-10.2); Hemolysis Index 35
[2022-03-22 13:45] LABS: BUN/Creatinine Ratio 15; Hematocrit 34.6 % (30.3-42.9); Hemoglobin 11.6 gm/dl (10.1-14.3); Mean Corpuscular HGB Conc 34 % (30-34); Mean Corpuscular Volume 92 fl (79-97); Platelet Count 231 K/mm3 (140-440); Red Blood Count 3.77 M/mm3 (3.65-5.03); Red Cell Distribution Width 15.8 % (13.2-15.2)
--- NOTE | 2022-03-22 16:26 | Event Note ---
Date: 03/22/22 IOL to be started when staffing allowed, [facility].
--- NOTE | 2022-03-22 16:51 | Ultrasound Report ---
ULTRASOUND BIOPHYSICAL PROFILE INDICATION / CLINICAL INFORMATION: BPP w/ MARION. COMPARISON: 03/19/2022 FINDINGS: BREATHING MOVEMENT = 2 GROSS BODY MOVEMENT = 2 TONE = 2 QUALITATIVE AMNIOTIC FLUID VOLUME = 2 TOTAL BIOPHYSICAL SCORE = 04/17 AMNIOTIC FLUID INDEX (cm) = 11.1; previously 6.1 cm. PRESENTATION: Cephalic. HEART RATE (beats per minute): 146 IMPRESSION: 1. biophysical profile = 04/17 2. Amniotic fluid index is now within normal limits, measuring 11.1 cm. Signer Name: Adrian Wagner MD Signed: 03/22/2022 4:37 PM Workstation Name: [id number]
--- NOTE | 2022-03-23 09:00 | Progress Note ---
Assessment and Plan - Patient Problems (1) Pre-eclampsia during in third trimester, antepartum Current Visit: No Status: Acute Plan to address problem: Discussed with the patient the nature of serial induction. Questions answered. Discussed the risks of and. indications for operative intervention. We will remove Cervidil this morning start Pitocin. Will continue induction until this evening. At that time reassess if labor has not started we'll stop induction. We'll allow to eat and possibly repeat Cervidil this evening. If labor is progressing or other indications to continue induction we'll do so at that time. Subjective - Subjective Date of service: 03/23/22 Principal diagnosis: IUp @ 34+0; pre-e Patient reports: movement normal, contractions (Patient states having some Cramping overnight), no new complaints, no loss of fluid, no vaginal bleeding Objective - Vital Signs Vital Signs: Vital Signs - 12hr 03/22/22 03/22/22 03/22/22 21:00 21:05 23:11 Temperature Pulse Rate 88 90 173 H Respiratory Rate Blood Pressure O2 Sat by Pulse 99 98 81 L Oximetry 03/22/22 03/22/22 03/22/22 23:15 23:20 23:25 Temperature Pulse Rate 91 H 78 80 Respiratory Rate Blood Pressure O2 Sat by Pulse 100 98 98 Oximetry 03/22/22 03/22/22 03/22/22 23:30 23:35 23:40 Temperature Pulse Rate 83 85 82 Respiratory Rate Blood Pressure O2 Sat by Pulse 98 97 99 Oximetry 03/22/22 03/22/22 03/22/22 23:42 23:45 23:50 Temperature Pulse Rate 80 87 93 H Respiratory Rate Blood Pressure 130/81 O2 Sat by Pulse 98 98 Oximetry 03/22/22 03/23/22 03/23/22 23:55 00:00 00:05 Temperature Pulse Rate 96 H 95 H 94 H Respiratory Rate Blood Pressure O2 Sat by Pulse 98 97 97 Oximetry 03/23/22 03/23/22 03/23/22 00:08 00:10 00:15 Temperature 97.8 F Pulse Rate 88 95 H Respiratory 18 Rate Blood Pressure O2 Sat by Pulse 97 97 97 Oximetry 03/23/22 03/23/22 03/23/22 00:20 00:25 00:30 Temperature Pulse Rate 91 H 80 101 H Respiratory Rate Blood Pressure O2 Sat by Pulse 96 96 98 Oximetry 03/23/22 03/23/22 03/23/22 00:35 00:40 00:44 Temperature Pulse Rate 88 89 91 H Respiratory Rate Blood Pressure 121/76 O2 Sat by Pulse 97 97 Oximetry 03/23/22 03/23/22 03/23/22 00:45 00:50 00:55 Temperature Pulse Rate 92 H 97 H 94 H Respiratory Rate Blood Pressure O2 Sat by Pulse 96 97 97 Oximetry 03/23/22 03/23/22 03/23/22 01:00 01:05 01:10 Temperature Pulse Rate 93 H 92 H 83 Respiratory Rate Blood Pressure O2 Sat by Pulse 97 97 97 Oximetry 03/23/22 03/23/22 03/23/22 01:15 01:20 01:25 Temperature Pulse Rate 84 85 85 Respiratory Rate Blood Pressure O2 Sat by Pulse 96 96 96 Oximetry 03/23/22 03/23/22 03/23/22 01:30 01:35 01:40 Temperature Pulse Rate 89 84 83 Respiratory Rate Blood Pressure O2 Sat by Pulse 96 96 96 Oximetry 03/23/22 03/23/22 03/23/22 01:43 01:45 01:50 Temperature Pulse Rate 80 86 86 Respiratory Rate Blood Pressure 130/74 O2 Sat by Pulse 96 96 Oximetry 03/23/22 03/23/22 03/23/22 01:55 02:00 02:05 Temperature Pulse Rate 90 89 82 Respiratory Rate Blood Pressure O2 Sat by Pulse 96 96 97 Oximetry 03/23/22 03/23/22 03/23/22 02:10 02:15 02:20 Temperature Pulse Rate 85 87 88 Respiratory Rate Blood Pressure O2 Sat by Pulse 96 96 96 Oximetry 03/23/22 03/23/22 03/23/22 02:25 02:30 02:35 Temperature Pulse Rate 89 90 89 Respiratory Rate Blood Pressure O2 Sat by Pulse 97 97 97 Oximetry 03/23/22 03/23/22 03/23/22 02:40 02:45 02:50 Temperature Pulse Rate 96 H 87 88 Respiratory Rate Blood Pressure 121/76 O2 Sat by Pulse 97 96 96 Oximetry 03/23/22 03/23/22 03/23/22 02:55 03:00 03:05 Temperature Pulse Rate 86 88 87 Respiratory Rate Blood Pressure O2 Sat by Pulse 96 96 96 Oximetry 03/23/22 03/23/2203/23/22 03:10 03:15 03:20 Temperature Pulse Rate 97 H 89 84 Respiratory Rate Blood Pressure O2 Sat by Pulse 98 98 97 Oximetry 03/23/22 03/23/22 03/23/22 03:25 03:30 03:35 Temperature Pulse Rate 93 H 92 H 92 H Respiratory Rate Blood Pressure O2 Sat by Pulse 97 97 97 Oximetry 03/23/22 03/23/22 03/23/22 03:40 03:44 03:45 Temperature Pulse Rate 83 80 79 Respiratory Rate Blood Pressure 113/76 O2 Sat by Pulse 96 96 Oximetry 03/23/22 03/23/22 03/23/22 03:50 03:55 04:00 Temperature Pulse Rate 103 H 84 80 Respiratory Rate Blood Pressure O2 Sat by Pulse 96 97 96 Oximetry 03/23/22 03/23/22 03/23/22 04:05 04:10 04:15 Temperature Pulse Rate 86 91 H 89 Respiratory Rate Blood Pressure O2 Sat by Pulse 97 96 96 Oximetry 03/23/22 03/23/22 03/23/22 04:20 04:25 04:30 Temperature 98 F Pulse Rate 83 86 89 Respiratory 18 Rate Blood Pressure O2 Sat by Pulse 96 96 96 Oximetry 03/23/22 03/23/22 03/23/22 04:35 04:40 04:44 Temperature Pulse Rate 85 82 80 Respiratory Rate Blood Pressure 122/78 O2 Sat by Pulse 96 96 Oximetry 03/23/22 03/23/22 03/23/22 04:45 04:50 04:55 Temperature Pulse Rate 84 82 87 Respiratory Rate Blood Pressure O2 Sat by Pulse 96 96 96 Oximetry 03/23/22 03/23/22 03/23/22 05:00 05:05 05:10 Temperature Pulse Rate 92 H 85 89 Respiratory Rate Blood Pressure O2 Sat by Pulse 98 96 97 Oximetry 03/23/22 03/23/22 03/23/22 05:15 05:20 05:25 Temperature Pulse Rate 83 85 77 Respiratory Rate Blood Pressure O2 Sat by Pulse 96 96 96 Oximetry 03/23/22 03/23/22 03/23/22 05:30 05:35 05:40 Temperature Pulse Rate 86 95 H 85 Respiratory Rate Blood Pressure O2 Sat by Pulse 96 98 95 Oximetry 03/23/22 03/23/22 03/23/22 05:43 05:45 05:50 Temperature Pulse Rate 80 85 98 H Respiratory Rate Blood Pressure 130/79 O2 Sat by Pulse 97 97 Oximetry 03/23/22 03/23/22 03/23/22 05:55 06:00 06:05 Temperature Pulse Rate 94 H 92 H 91 H Respiratory Rate Blood Pressure O2 Sat by Pulse 97 98 97 Oximetry 03/23/22 03/23/22 03/23/22 06:10 06:15 06:20 Temperature Pulse Rate 102 H 92 H 86 Respiratory Rate Blood Pressure O2 Sat by Pulse 98 97 97 Oximetry 03/23/22 03/23/22 03/23/22 06:25 06:30 06:35 Temperature Pulse Rate 96 H 93 H 93 H Respiratory Rate Blood Pressure O2 Sat by Pulse 98 97 96 Oximetry 03/23/22 03/23/22 03/23/22 06:40 06:43 06:45 Temperature Pulse Rate 92 H 90 87 Respiratory Rate Blood Pressure 130/85 O2 Sat by Pulse 97 98 Oximetry 03/23/22 03/23/22 03/23/22 06:50 06:55 07:00 Temperature Pulse Rate 97 H 100 H 93 H Respiratory Rate Blood Pressure O2 Sat by Pulse 95 95 95 Oximetry 03/23/22 03/23/22 03/23/22 07:12 07:17 07:22 Temperature Pulse Rate 99 H 90 92 H Respiratory Rate Blood Pressure O2 Sat by Pulse 98 98 98 Oximetry 03/23/22 03/23/22 03/23/22 07:36 07:37 07:41 Temperature Pulse Rate 87 87 88 Respiratory Rate Blood Pressure 132/86 O2 Sat by Pulse 98 98 Oximetry 03/23/22 03/23/22 03/23/22 07:46 07:51 07:56 Temperature Pulse Rate 88 97 H 95 H Respiratory Rate Blood Pressure O2 Sat by Pulse 98 99 98 Oximetry 03/23/22 03/23/22 03/23/22 08:01 08:06 08:11 Temperature Pulse Rate 99 H 101 H 106 H Respiratory Rate Blood Pressure O2 Sat by Pulse 98 98 97 Oximetry 03/23/22 03/23/22 03/23/22 08:16 08:21 08:26 Temperature Pulse Rate 93 H 97 H 90 Respiratory Rate Blood Pressure O2 Sat by Pulse 97 98 98 Oximetry 07/14/22 07/14/22 07/14/22 08:31 08:36 08:37 Temperature Pulse Rate 86 95 H 86 Respiratory Rate Blood Pressure 141/95 O2 Sat by Pulse 98 96 Oximetry 03/23/22 03/23/22 03/23/22 08:41 08:42 08:46 Temperature Pulse Rate 93 H 87 86 Respiratory Rate Blood Pressure 141/85 O2 Sat by Pulse 98 97 Oximetry 03/23/22 03/23/22 08:51 08:56 Temperature Pulse Rate 93 H 104 H Respiratory Rate Blood Pressure O2 Sat by Pulse 97 97 Oximetry - Exam Breasts: deferred Cardiovascular: Regular rate Abdomen: Present: normal appearance FHR: category 1 Uterine Contraction Monitor Mode: External Uterine Contraction Pattern: Irregular Uterine Tone Measurement Phase: Resting - Labs Labs: Abnormal Labs 03/15/22 03/15/22 03/15/22 16:20 16:45 16:45 WBC 12.7 H RBC 3.45 L RDW 15.5 H Sodium Potassium Carbon Dioxide BUN Creatinine 0.4 L Glucose Uric Acid 2.9 L Alkaline Phosphatase Lactate Dehydrogenase 410 H Total Protein Albumin Urine Blood Moderate A 03/15/22 03/17/22 03/17/22 20:35 20:01 20:01 WBC 13.4 H RBC 3.32 L RDW Sodium Potassium 3.4 L Carbon Dioxide 19 L 21 L BUN 5 L 4 L Creatinine 0.3 L 0.4 L Glucose 105 H Uric Acid Alkaline Phosphatase 207 H Lactate Dehydrogenase Total Protein 5.8 L Albumin 3.0 L Urine Blood 03/19/22 03/19/22 03/22/22 07:56 07:56 Unknown WBC 13.8 H 15.8 H RBC 3.42 L RDW 15.8 H Sodium 135 L Potassium Carbon Dioxide 21 L BUN 4 L Creatinine 0.4 L Glucose Uric Acid Alkaline Phosphatase 216 H Lactate Dehydrogenase Total Protein 5.8 L Albumin 3.3 L Urine Blood 03/22/22 Unknown WBC RBC RDW Sodium 136 L Potassium Carbon Dioxide 20 L BUN 6 L Creatinine 0.4 L Glucose Uric Acid Alkaline Phosphatase 267 H Lactate Dehydrogenase Total Protein Albumin 3.4 L Urine Blood Laboratory Results - last 24 hr 03/22/22 03/22/22 03/22/22 Unknown Unknown Unknown WBC 15.8 H RBC 3.77 Hgb 11.6 Hct 34.6 MCV 92 MCH 31 MCHC 34 RDW 15.8 H Plt Count 231 Sodium 136 L Potassium 4.2 Chloride 103.2 Carbon Dioxide 20 L Anion Gap 17 BUN 6 L Creatinine 0.4 L Estimated GFR > 60 BUN/Creatinine Ratio 15 Glucose 80 Calcium 9.9 Total Bilirubin 0.30 AST 19 ALT 11 Alkaline Phosphatase 267 H Total Protein 7.2 D Albumin 3.4 L Albumin/Globulin Ratio 0.9 Blood Type O POSITIVE Antibody Screen Negative
[2022-03-23] MEDS ORDERED: OXYTOCIN DRIP 30 UNITS/500 ML BAG IV SCH (10:00)
[2022-03-23] MEDS: LACTATED RINGERS 1,000 ML IV SCH (10:24)
[2022-03-23] MEDS: PRENATAL VIT27-FE FUMARATE-FOLIC ACID VIT TAB PO SCH (10:43)
--- NOTE | 2022-03-23 17:19 | Event Note ---
Date: 03/23/22 Patient proceed with Pitocin throughout the day. Pitocin could not be titration was compromised by staffing concerns. tracing is within reactive. Patient's blood pressures diastolics mostly under 90 throughout the day with systolics in the 120s to 150s. We will stop the Pitocin allow patient to eat and replaced Cervidil for this evening. Discussed plan of care with patient via telephone. All questions answered. Patient agrees. We will continue to monitor blood pressures closely and watch for signs of symptoms of worsening preeclampsia.
[2022-03-23] MEDS ORDERED: DINOPROSTONE 10 MG VAG SUPP VG ONE (22:00)
--- NOTE | 2022-03-24 08:22 | Progress Note ---
<JUAN JOSE LEOS - Last Filed: 03/24/22 12:23> Assessment and Plan Pt sleeping, no complaints. FOC awake, reviewed plan to keep cervidil in for full 12 hrs then allow AM care and meal before starting pitocin. All questions addressed. - Patient Problems (1) with 33 completed weeks gestation Current Visit: Yes Status: Acute (2) Advanced maternal age (AMA), 40 years or greater Current Visit: No Status: Acute (3) Pre-eclampsia during in third trimester, antepartum Current Visit: No Status: Acute Subjective - Subjective Date of service: 03/24/22 Principal diagnosis: IUp @ 34+2; pre-e Patient reports: movement normal, no new complaints, no loss of fluid, no vaginal bleeding Objective - Vital Signs Vital Signs: Vital Signs - 12hr 03/23/22 03/23/22 03/23/22 20:22 20:27 20:32 Temperature Pulse Rate 103 H 105 H 120 H Respiratory Rate Blood Pressure Blood Pressure [Left] O2 Sat by Pulse 96 96 98 Oximetry 03/23/22 03/23/22 03/23/22 20:34 20:37 20:42 Temperature Pulse Rate 98 H 96 H 99 H Respiratory Rate Blood Pressure 135/83 Blood Pressure [Left] O2 Sat by Pulse 95 95 Oximetry 03/23/22 03/23/22 03/23/22 20:47 20:50 20:52 Temperature Pulse Rate 109 H 100 H 106 H Respiratory Rate Blood Pressure Blood Pressure [Left] O2 Sat by Pulse 98 94 98 Oximetry 03/23/22 03/23/22 03/23/22 20:57 21:02 21:07 Temperature Pulse Rate 101 H 116 H 107 H Respiratory Rate Blood Pressure 127/82 Blood Pressure [Left] O2 Sat by Pulse 98 97 98 Oximetry 03/23/22 03/23/22 03/23/22 21:12 21:17 21:22 Temperature Pulse Rate 125 H 110 H 96 H Respiratory Rate Blood Pressure Blood Pressure [Left] O2 Sat by Pulse 99 98 98 Oximetry 03/23/22 03/23/22 03/23/22 21:27 21:32 21:37 Temperature Pulse Rate 95 H 104 H 90 Respiratory Rate Blood Pressure 125/82 Blood Pressure [Left] O2 Sat by Pulse 98 98 98 Oximetry 03/23/22 03/23/22 03/23/22 21:42 21:47 21:52 Temperature Pulse Rate 90 90 93 H Respiratory Rate Blood Pressure Blood Pressure [Left] O2 Sat by Pulse 98 100 97 Oximetry 03/23/22 03/23/22 03/23/22 21:57 22:02 22:07 Temperature Pulse Rate 91 H 92 H 88 Respiratory Rate Blood Pressure 129/79 Blood Pressure [Left] O2 Sat by Pulse 98 98 99 Oximetry 03/23/22 03/23/22 03/23/22 22:12 22:17 22:22 Temperature Pulse Rate 89 86 97 H Respiratory Rate Blood Pressure Blood Pressure [Left] O2 Sat by Pulse 98 98 98 Oximetry 03/23/22 03/23/22 03/23/22 22:27 22:32 22:37 Temperature Pulse Rate 98 H 92 H 89 Respiratory Rate Blood Pressure 129/74 Blood Pressure [Left] O2 Sat by Pulse 97 97 98 Oximetry 03/23/22 03/23/22 03/23/22 22:42 22:47 22:52 Temperature Pulse Rate 84 86 87 Respiratory Rate Blood Pressure Blood Pressure [Left] O2 Sat by Pulse 99 98 98 Oximetry 03/23/22 03/23/22 03/23/22 22:57 23:02 23:07 Temperature Pulse Rate 90 93 H 90 Respiratory Rate Blood Pressure 146/89 Blood Pressure [Left] O2 Sat by Pulse 98 98 98 Oximetry 03/23/22 03/23/22 03/23/22 23:12 23:17 23:22 Temperature Pulse Rate 96 H 93 H 89 Respiratory Rate Blood Pressure Blood Pressure [Left] O2 Sat by Pulse 98 97 97 Oximetry 03/23/22 03/23/22 03/23/22 23:27 23:32 23:37 Temperature 98.0 F Pulse Rate 84 85 85 Respiratory 18 Rate Blood Pressure 136/82 Blood Pressure 136/82 [Left] O2 Sat by Pulse 97 98 98 Oximetry 03/23/22 03/23/22 03/23/22 23:42 23:47 23:52 Temperature Pulse Rate 83 81 84 Respiratory Rate Blood Pressure Blood Pressure [Left] O2 Sat by Pulse 99 98 98 Oximetry 03/23/22 03/24/22 03/24/22 23:57 00:02 00:03 Temperature Pulse Rate 83 85 87 Respiratory Rate Blood Pressure 131/72 Blood Pressure [Left] O2 Sat by Pulse 98 99 Oximetry 03/24/22 03/24/22 03/24/22 00:15 00:20 00:25 Temperature Pulse Rate 84 88 98 H Respiratory Rate Blood Pressure Blood Pressure [Left] O2 Sat by Pulse 97 97 97 Oximetry 03/24/22 03/24/22 03/24/22 00:30 00:32 00:35 Temperature Pulse Rate 92 H 86 90 Respiratory Rate Blood Pressure 133/89 Blood Pressure [Left] O2 Sat by Pulse 98 97 Oximetry 03/24/22 03/24/22 03/24/22 00:40 00:45 00:50 Temperature Pulse Rate 80 94 H 92 H Respiratory Rate Blood Pressure Blood Pressure [Left] O2 Sat by Pulse 98 99 98 Oximetry 03/24/22 03/24/22 03/24/22 00:55 01:00 01:02 Temperature Pulse Rate 81 84 88 Respiratory Rate Blood Pressure 132/93 Blood Pressure [Left] O2 Sat by Pulse 98 98 Oximetry 03/24/22 03/24/22 03/24/22 01:05 01:10 01:15 Temperature Pulse Rate 90 82 99 H Respiratory Rate Blood Pressure Blood Pressure [Left] O2 Sat by Pulse 98 97 99 Oximetry 03/24/22 03/24/22 03/24/22 01:20 01:25 01:30 Temperature Pulse Rate 89 85 86 Respiratory Rate Blood Pressure Blood Pressure [Left] O2 Sat by Pulse 99 99 98 Oximetry 03/24/22 03/24/22 03/24/22 01:33 01:35 01:40 Temperature Pulse Rate 87 84 86 Respiratory Rate Blood Pressure 129/87 Blood Pressure [Left] O2 Sat by Pulse 98 99 Oximetry 03/24/22 03/24/22 03/24/22 01:45 01:50 01:55 Temperature Pulse Rate 87 92 H 87 Respiratory Rate Blood Pressure Blood Pressure [Left] O2 Sat by Pulse 98 97 97 Oximetry 03/24/22 03/24/22 03/24/22 02:00 02:02 02:05 Temperature Pulse Rate 90 85 91 H Respiratory Rate Blood Pressure 139/84 Blood Pressure [Left] O2 Sat by Pulse 96 96 Oximetry 03/24/22 03/24/22 03/24/22 02:10 02:15 02:20 Temperature Pulse Rate 88 98 H 95 H Respiratory Rate Blood Pressure Blood Pressure [Left] O2 Sat by Pulse 96 97 97 Oximetry 0703/24/22 03/24/22 02:25 02:30 02:33 Temperature Pulse Rate 84 86 85 Respiratory Rate Blood Pressure 100/63 Blood Pressure [Left] O2 Sat by Pulse 96 96 Oximetry 03/24/22 03/24/22 03/24/22 02:35 02:40 02:45 Temperature Pulse Rate 85 83 85 Respiratory Rate Blood Pressure Blood Pressure [Left] O2 Sat by Pulse 96 96 96 Oximetry 03/24/22 03/24/22 03/24/22 02:50 02:55 03:00 Temperature Pulse Rate 87 86 84 Respiratory Rate Blood Pressure Blood Pressure [Left] O2 Sat by Pulse 96 96 96 Oximetry 03/24/22 03/24/22 03/24/22 03:03 03:05 03:10 Temperature Pulse Rate 96 H 83 95 H Respiratory Rate Blood Pressure 117/64 Blood Pressure [Left] O2 Sat by Pulse 96 97 Oximetry 03/24/22 03/24/22 03/24/22 03:15 03:20 03:25 Temperature Pulse Rate 77 87 87 Respiratory Rate Blood Pressure Blood Pressure [Left] O2 Sat by Pulse 97 96 96 Oximetry 03/24/22 03/24/22 03/24/22 03:30 03:32 03:35 Temperature Pulse Rate 84 82 87 Respiratory Rate Blood Pressure 135/80 Blood Pressure [Left] O2 Sat by Pulse 96 96 Oximetry 03/24/22 03/24/22 03/24/22 03:40 03:45 03:50 Temperature Pulse Rate 86 82 85 Respiratory Rate Blood Pressure Blood Pressure [Left] O2 Sat by Pulse 97 96 96 Oximetry 03/24/22 03/24/22 03/24/22 03:55 04:00 04:02 Temperature Pulse Rate 84 85 86 Respiratory Rate Blood Pressure 124/74 Blood Pressure [Left] O2 Sat by Pulse 96 96 Oximetry 03/24/22 03/24/22 03/24/22 04:05 04:10 04:15 Temperature Pulse Rate 80 84 78 Respiratory Rate Blood Pressure Blood Pressure [Left] O2 Sat by Pulse 97 97 96 Oximetry 03/24/22 03/24/22 03/24/22 04:20 04:25 04:30 Temperature Pulse Rate 84 88 85 Respiratory Rate Blood Pressure Blood Pressure [Left] O2 Sat by Pulse 96 96 96 Oximetry 03/24/22 03/24/22 03/24/22 04:33 04:35 04:40 Temperature 98.0 F Pulse Rate 80 82 82 Respiratory 18 Rate Blood Pressure 136/84 Blood Pressure 136/84 [Left] O2 Sat by Pulse 96 96 96 Oximetry 03/24/22 03/24/22 03/24/22 04:45 04:50 04:55 Temperature Pulse Rate 84 82 74 Respiratory Rate Blood Pressure Blood Pressure [Left] O2 Sat by Pulse 96 96 96 Oximetry 03/24/22 03/24/22 03/24/22 05:00 05:02 05:05 Temperature Pulse Rate 79 77 84 Respiratory Rate Blood Pressure 139/81 Blood Pressure [Left] O2 Sat by Pulse 96 97 Oximetry 03/24/22 03/24/22 03/24/22 05:18 05:23 05:28 Temperature Pulse Rate 99 H 89 82 Respiratory Rate Blood Pressure Blood Pressure [Left] O2 Sat by Pulse 99 97 97 Oximetry 03/24/22 03/24/22 03/24/22 05:32 05:33 05:38 Temperature Pulse Rate 81 83 81 Respiratory Rate Blood Pressure 139/88 Blood Pressure [Left] O2 Sat by Pulse 97 97 Oximetry 03/24/22 03/24/22 03/24/22 05:43 05:48 05:53 Temperature Pulse Rate 82 82 83 Respiratory Rate Blood Pressure Blood Pressure [Left] O2 Sat by Pulse 97 96 96 Oximetry 03/24/22 03/24/22 03/24/22 05:58 06:02 06:03 Temperature Pulse Rate 88 79 80 Respiratory Rate Blood Pressure 133/77 Blood Pressure [Left] O2 Sat by Pulse 97 96 Oximetry 03/24/22 03/24/22 03/24/22 06:08 06:13 06:18 Temperature Pulse Rate 85 88 78 Respiratory Rate Blood Pressure Blood Pressure [Left] O2 Sat by Pulse 97 96 96 Oximetry 03/24/22 03/24/22 03/24/22 06:23 06:28 06:33 Temperature Pulse Rate 84 77 79 Respiratory Rate Blood Pressure Blood Pressure [Left] O2 Sat by Pulse 96 96 95 Oximetry 03/24/22 03/24/22 03/24/22 06:34 06:38 06:43 Temperature Pulse Rate 84 81 70 Respiratory Rate Blood Pressure 134/85 Blood Pressure [Left] O2 Sat by Pulse 95 96 Oximetry 03/24/22 03/24/22 03/24/22 06:48 06:53 06:58 Temperature Pulse Rate 81 79 82 Respiratory Rate Blood Pressure Blood Pressure [Left] O2 Sat by Pulse 96 96 97 Oximetry 03/24/22 03/24/22 03/24/22 07:02 07:03 07:08 Temperature Pulse Rate 79 84 83 Respiratory Rate Blood Pressure 134/78 Blood Pressure [Left] O2 Sat by Pulse 96 95 Oximetry 03/24/22 03/24/22 03/24/22 07:13 07:18 07:23 Temperature Pulse Rate 86 85 86 Respiratory Rate Blood Pressure Blood Pressure [Left] O2 Sat by Pulse 96 96 97 Oximetry 03/24/22 03/24/22 03/24/22 07:28 07:33 07:38 Temperature Pulse Rate 83 90 86 Respiratory Rate Blood Pressure 139/77 Blood Pressure [Left] O2 Sat by Pulse 96 97 96 Oximetry 03/24/22 03/24/22 03/24/22 07:43 07:48 07:53 Temperature Pulse Rate 84 83 80 Respiratory Rate Blood Pressure Blood Pressure [Left] O2 Sat by Pulse 96 96 96 Oximetry 03/24/22 03/24/22 03/24/22 07:58 08:03 08:08 Temperature Pulse Rate 82 93 H 98 H Respiratory Rate Blood Pressure 142/88 Blood Pressure [Left] O2 Sat by Pulse 96 97 97 Oximetry 03/24/22 03/24/22 08:13 08:18 Temperature Pulse Rate 101 H 85 Respiratory Rate Blood Pressure Blood Pressure [Left] O2 Sat by Pulse 97 97 Oximetry - Exam Lungs: Normal air movement Abdomen: Present: normal appearance Uterine Contraction Monitor Mode: External Uterine Contraction Pattern: Irregular Uterine Tone Measurement Phase: Contraction Uterine Contraction Intensity: Mild Extremities: normal - Labs Labs: Abnormal Labs 03/15/22 03/15/22 03/15/22 16:20 16:45 16:45 WBC 12.7 H RBC 3.45 L RDW 15.5 H Sodium Potassium Carbon Dioxide BUN Creatinine 0.4 L Glucose Uric Acid 2.9 L Alkaline Phosphatase Lactate Dehydrogenase 410 H Total Protein Albumin Urine Blood Moderate A 03/15/22 03/17/22 03/17/22 20:35 20:01 20:01 WBC 13.4 H RBC 3.32 L RDW Sodium Potassium 3.4 L Carbon Dioxide 19 L 21 L BUN 5 L 4 L Creatinine 0.3 L 0.4 L Glucose 105 H Uric Acid Alkaline Phosphatase 207 H Lactate Dehydrogenase Total Protein 5.8 L Albumin 3.0 L Urine Blood 03/19/22 03/19/22 03/22/22 07:56 07:56 Unknown WBC 13.8 H 15.8 H RBC 3.42 L RDW 15.8 H Sodium 135 L Potassium Carbon Dioxide 21 L BUN 4 L Creatinine 0.4 L Glucose Uric Acid Alkaline Phosphatase 216 H Lactate Dehydrogenase Total Protein 5.8 L Albumin 3.3 L Urine Blood 03/22/22 Unknown WBC RBC RDW Sodium 136 L Potassium Carbon Dioxide 20 L BUN 6 L Creatinine 0.4 L Glucose Uric Acid Alkaline Phosphatase 267 H Lactate Dehydrogenase Total Protein Albumin 3.4 L Urine Blood <CARTER MARSH - Last Filed: 03/24/22 20:50> Assessment and Plan - Patient Problems (1) 34 weeks gestation of Current Visit: Yes Status: Acute (2) Pre-eclampsia during in third trimester, antepartum Current Visit: No Status: Acute Plan to address problem: BP's stable. No cervical change per RN, will discontinue pitocin and consider low dose pitocin or cervidil after PM care. RN aware (3) Sickle cell trait Current Visit: Yes Status: Chronic (4) Advanced maternal age (AMA), 40 years or greater Current Visit: No Status: Chronic Objective - Vital Signs Vital Signs: Vital Signs - 12hr 03/24/22 03/24/22 03/24/22 09:38 09:43 09:48 Temperature Pulse Rate 84 82 81 Respiratory Rate Blood Pressure 128/74 Blood Pressure [Left] O2 Sat by Pulse 100 100 99 Oximetry O2 Sat by Pulse Oximetry [ Bilateral] 03/24/22 03/24/22 03/24/22 09:53 09:57 09:58 Temperature Pulse Rate 81 77 Respiratory Rate Blood Pressure Blood Pressure [Left] O2 Sat by Pulse 100 99 Oximetry O2 Sat by Pulse 100 Oximetry [ Bilateral] 03/24/22 03/24/22 03/24/22 10:02 10:03 10:08 Temperature Pulse Rate 85 83 77 Respiratory Rate Blood Pressure 129/70 Blood Pressure [Left] O2 Sat by Pulse 99 99 Oximetry O2 Sat by Pulse Oximetry [ Bilateral] 03/24/22 03/24/22 03/24/22 10:13 10:14 10:18 Temperature 97.5 F L Pulse Rate 77 84 84 Respiratory 16 Rate Blood Pressure Blood Pressure [Left] O2 Sat by Pulse 100 100 100 Oximetry O2 Sat by Pulse Oximetry [ Bilateral] 03/24/22 03/24/22 03/24/22 11:56 12:01 12:06 Temperature Pulse Rate 57 L 111 H 111 H Respiratory Rate Blood Pressure Blood Pressure [Left] O2 Sat by Pulse 88 97 98 Oximetry O2 Sat by Pulse Oximetry [ Bilateral] 03/24/22 03/24/22 03/24/22 12:08 12:11 12:16 Temperature Pulse Rate 96 H 94 H 101 H Respiratory Rate Blood Pressure 124/83 Blood Pressure [Left] O2 Sat by Pulse 98 98 Oximetry O2 Sat by Pulse Oximetry [ Bilateral] 03/24/22 03/24/22 03/24/22 12:21 12:26 12:31 Temperature Pulse Rate 91 H 105 H 93 H Respiratory Rate Blood Pressure Blood Pressure [Left] O2 Sat by Pulse 98 98 99 Oximetry O2 Sat by Pulse Oximetry [ Bilateral] 03/24/22 03/24/22 03/24/22 12:36 12:41 12:46 Temperature Pulse Rate 89 102 H 91 H Respiratory Rate Blood Pressure Blood Pressure [Left] O2 Sat by Pulse 99 99 99 Oximetry O2 Sat by Pulse Oximetry [ Bilateral] 03/24/22 03/24/22 03/24/22 12:51 12:56 13:01 Temperature Pulse Rate 86 88 85 Respiratory Rate Blood Pressure 123/68 Blood Pressure [Left] O2 Sat by Pulse 98 98 99 Oximetry O2 Sat by Pulse Oximetry [ Bilateral] 03/24/22 03/24/22 03/24/22 13:06 13:11 13:16 Temperature Pulse Rate 83 82 84 Respiratory Rate Blood Pressure Blood Pressure [Left] O2 Sat by Pulse 98 97 97 Oximetry O2 Sat by Pulse Oximetry [ Bilateral] 03/24/22 03/24/22 03/24/22 13:21 13:26 13:31 Temperature Pulse Rate 85 83 83 Respiratory Rate Blood Pressure Blood Pressure [Left] O2 Sat by Pulse 97 97 97 Oximetry O2 Sat by Pulse Oximetry [ Bilateral] 03/24/22 03/24/22 03/24/22 13:36 13:41 13:46 Temperature Pulse Rate 93 H 85 81 Respiratory Rate Blood Pressure Blood Pressure [Left] O2 Sat by Pulse 100 99 99 Oximetry O2 Sat by Pulse Oximetry [ Bilateral] 03/24/22 03/24/22 03/24/22 13:51 13:56 14:01 Temperature Pulse Rate 77 78 79 Respiratory Rate Blood Pressure 146/86 Blood Pressure [Left] O2 Sat by Pulse 99 99 100 Oximetry O2 Sat by Pulse Oximetry [ Bilateral] 03/24/22 03/24/22 03/24/22 14:06 14:11 14:16 Temperature Pulse Rate 77 77 76 Respiratory Rate Blood Pressure Blood Pressure [Left] O2 Sat by Pulse 99 99 99 Oximetry O2 Sat by Pulse Oximetry [ Bilateral] 03/24/22 03/24/22 03/24/22 14:21 14:26 14:31 Temperature Pulse Rate 78 76 76 Respiratory Rate Blood Pressure Blood Pressure [Left] O2 Sat by Pulse 98 98 98 Oximetry O2 Sat by Pulse Oximetry [ Bilateral] 03/24/22 03/24/22 03/24/22 14:36 14:41 14:46 Temperature Pulse Rate 82 95 H 80 Respiratory Rate Blood Pressure Blood Pressure [Left] O2 Sat by Pulse 98 99 99 Oximetry O2 Sat by Pulse Oximetry [ Bilateral] 03/24/22 03/24/22 03/24/22 14:51 14:56 14:58 Temperature 99 F Pulse Rate 80 96 H 83 Respiratory 18 Rate Blood Pressure 117/69 Blood Pressure 117/69 [Left] O2 Sat by Pulse 99 100 99 Oximetry O2 Sat by Pulse Oximetry [ Bilateral] 03/24/22 03/24/22 03/24/22 15:01 15:06 15:11 Temperature Pulse Rate 101 H 89 79 Respiratory Rate Blood Pressure Blood Pressure [Left] O2 Sat by Pulse 99 100 99 Oximetry O2 Sat by Pulse Oximetry [ Bilateral] 03/24/22 03/24/22 03/24/22 15:16 15:21 15:26 Temperature Pulse Rate 82 85 83 Respiratory Rate Blood Pressure Blood Pressure [Left] O2 Sat by Pulse 99 100 100 Oximetry O2 Sat by Pulse Oximetry [ Bilateral] 03/24/22 03/24/22 03/24/22 15:31 15:36 15:41 Temperature Pulse Rate 95 H 80 80 Respiratory Rate Blood Pressure Blood Pressure [Left] O2 Sat by Pulse 100 100 100 Oximetry O2 Sat by Pulse Oximetry [ Bilateral] 03/24/22 03/24/22 03/24/22 15:46 15:51 16:14 Temperature Pulse Rate 85 94 H 92 H Respiratory Rate Blood Pressure Blood Pressure [Left] O2 Sat by Pulse 100 100 99 Oximetry O2 Sat by Pulse Oximetry [ Bilateral] 03/24/22 03/24/22 03/24/22 16:19 16:24 16:29 Temperature Pulse Rate 79 96 H 83 Respiratory Rate Blood Pressure Blood Pressure [Left] O2 Sat by Pulse 99 99 100 Oximetry O2 Sat by Pulse Oximetry [ Bilateral] 03/24/22 03/24/22 03/24/22 16:34 16:39 16:44 Temperature Pulse Rate 86 81 80 Respiratory Rate Blood Pressure Blood Pressure [Left] O2 Sat by Pulse 100 100 100 Oximetry O2 Sat by Pulse Oximetry [ Bilateral] 03/24/22 03/24/22 03/24/22 16:49 16:54 16:57 Temperature Pulse Rate 72 85 74 Respiratory Rate Blood Pressure 141/85 Blood Pressure [Left] O2 Sat by Pulse 100 100 Oximetry O2 Sat by Pulse Oximetry [ Bilateral] 03/24/22 03/24/22 03/24/22 16:59 17:04 17:09 Temperature Pulse Rate 76 80 88 Respiratory Rate Blood Pressure Blood Pressure [Left] O2 Sat by Pulse 100 100 100 Oximetry O2 Sat by Pulse Oximetry [ Bilateral] 03/24/22 03/24/22 03/24/22 17:14 17:19 17:24 Temperature Pulse Rate 86 80 77 Respiratory Rate Blood Pressure Blood Pressure [Left] O2 Sat by Pulse 100 100 100 Oximetry O2 Sat by Pulse Oximetry [ Bilateral] 03/24/22 03/24/22 03/24/22 17:29 17:34 17:39 Temperature Pulse Rate 86 93 H 88 Respiratory Rate Blood Pressure Blood Pressure [Left] O2 Sat by Pulse 100 100 100 Oximetry O2 Sat by Pulse Oximetry [ Bilateral] 03/24/22 03/24/22 03/24/22 17:44 17:49 17:54 Temperature Pulse Rate 92 H 86 86 Respiratory Rate Blood Pressure Blood Pressure [Left] O2 Sat by Pulse 100 99 100 Oximetry O2 Sat by Pulse Oximetry [ Bilateral] 03/24/22 03/24/22 03/24/22 17:57 17:59 18:04 Temperature Pulse Rate 82 92 H 85 Respiratory Rate Blood Pressure 136/96 Blood Pressure [Left] O2 Sat by Pulse 100 100 Oximetry O2 Sat by Pulse Oximetry [ Bilateral] 03/24/22 03/24/22 03/24/22 18:09 18:14 18:19 Temperature Pulse Rate 86 79 82 Respiratory Rate Blood Pressure Blood Pressure [Left] O2 Sat by Pulse 100 100 100 Oximetry O2 Sat by Pulse Oximetry [ Bilateral] 03/24/22 03/24/22 03/24/22 18:24 18:29 18:34 Temperature Pulse Rate 84 87 93 H Respiratory Rate Blood Pressure Blood Pressure [Left] O2 Sat by Pulse 99 100 100 Oximetry O2 Sat by Pulse Oximetry [ Bilateral] 03/24/22 03/24/22 03/24/22 18:39 18:44 18:49 Temperature Pulse Rate 79 82 98 H Respiratory Rate Blood Pressure Blood Pressure [Left] O2 Sat by Pulse 100 100 100 Oximetry O2 Sat by Pulse Oximetry [ Bilateral] 03/24/22 03/24/22 03/24/22 18:54 18:56 18:59 Temperature Pulse Rate 83 96 H 86 Respiratory Rate Blood Pressure 162/134 Blood Pressure [Left] O2 Sat by Pulse 99 99 Oximetry O2 Sat by Pulse Oximetry [ Bilateral] 03/24/22 03/24/22 03/24/22 19:00 19:04 19:09 Temperature Pulse Rate 94 H 88 Respiratory Rate Blood Pressure Blood Pressure [Left] O2 Sat by Pulse 99 98 Oximetry O2 Sat by Pulse 99 Oximetry [ Bilateral] 03/24/22 03/24/22 03/24/22 19:14 19:19 19:24 Temperature Pulse Rate 86 93 H 78 Respiratory Rate Blood Pressure Blood Pressure [Left] O2 Sat by Pulse 99 98 99 Oximetry O2 Sat by Pulse Oximetry [ Bilateral] 03/24/22 03/24/22 03/24/22 19:29 19:34 19:39 Temperature Pulse Rate 90 85 80 Respiratory Rate Blood Pressure Blood Pressure [Left] O2 Sat by Pulse 98 100 99 Oximetry O2 Sat by Pulse Oximetry [ Bilateral] 03/24/22 03/24/22 03/24/22 19:44 19:49 19:54 Temperature Pulse Rate 83 80 83 Respiratory Rate Blood Pressure Blood Pressure [Left] O2 Sat by Pulse 99 98 99 Oximetry O2 Sat by Pulse Oximetry [ Bilateral] 03/24/22 03/24/22 03/24/22 19:57 19:59 20:04 Temperature Pulse Rate 82 86 86 Respiratory Rate Blood Pressure 171/91 Blood Pressure [Left] O2 Sat by Pulse 99 100 Oximetry O2 Sat by Pulse Oximetry [ Bilateral] 03/24/22 03/24/22 03/24/22 20:09 20:14 20:19 Temperature Pulse Rate 89 88 89 Respiratory Rate Blood Pressure Blood Pressure [Left] O2 Sat by Pulse 99 98 99 Oximetry O2 Sat by Pulse Oximetry [ Bilateral] 03/24/22 03/24/22 20:24 20:29 Temperature Pulse Rate 94 H 83 Respiratory Rate Blood Pressure Blood Pressure [Left] O2 Sat by Pulse 99 100 Oximetry O2 Sat by Pulse Oximetry [ Bilateral] - Labs Labs: Abnormal Labs 03/15/22 03/15/22 03/15/22 16:20 16:45 16:45 WBC 12.7 H RBC 3.45 L RDW 15.5 H Sodium Potassium Carbon Dioxide BUN Creatinine 0.4 L Glucose Uric Acid 2.9 L Alkaline Phosphatase Lactate Dehydrogenase 410 H Total Protein Albumin Urine Blood Moderate A 03/15/22 03/17/22 03/17/22 20:35 20:01 20:01 WBC 13.4 H RBC 3.32 L RDW Sodium Potassium 3.4 L Carbon Dioxide 19 L 21 L BUN 5 L 4 L Creatinine 0.3 L 0.4 L Glucose 105 H Uric Acid Alkaline Phosphatase 207 H Lactate Dehydrogenase Total Protein 5.8 L Albumin 3.0 L Urine Blood 03/19/22 03/19/22 03/22/22 07:56 07:56 Unknown WBC 13.8 H 15.8 H RBC 3.42 L RDW 15.8 H Sodium 135 L Potassium Carbon Dioxide 21 L BUN 4 L Creatinine 0.4 L Glucose Uric Acid Alkaline Phosphatase 216 H Lactate Dehydrogenase Total Protein 5.8 L Albumin 3.3 L Urine Blood 03/22/22 Unknown WBC RBC RDW Sodium 136 L Potassium Carbon Dioxide 20 L BUN 6 L Creatinine 0.4 L Glucose Uric Acid Alkaline Phosphatase 267 H Lactate Dehydrogenase Total Protein Albumin 3.4 L Urine Blood
[2022-03-24] MEDS: PRENATAL VIT27-FE FUMARATE-FOLIC ACID VIT TAB PO SCH (10:13)
[2022-03-24] MEDS ORDERED: LIDOCAINE (2%) 20 MG/1 ML VIAL 20 ML MDV INFILTRATI ONE (10:30)
[2022-03-24] MEDS ORDERED: OXYTOCIN DRIP 30 UNITS/500 ML BAG IV SCH (11:00)
[2022-03-24] MEDS: LACTATED RINGERS 1,000 ML IV SCH (15:00)
[2022-03-24] MEDS ORDERED: DINOPROSTONE 10 MG VAG SUPP VG ONE (22:30)
--- NOTE | 2022-03-25 09:30 | Progress Note ---
Assessment and Plan - Patient Problems (1) 34 weeks gestation of Current Visit: Yes Status: Acute Plan to address problem: Patient lying in bed without complaint. Introduced myself to patient as on-call provider. Plan of care reviewed. Cervidil to be removed at 12 noon. BAsed on cervical exam, will consider pitocin. Reviewed serial IOL and will continue as long as mother and baby stable. All questions and concerns addressed. (2) Elevated blood pressure affecting in third trimester, antepartum Current Visit: No Status: Acute Subjective - Subjective Date of service: 03/25/22 Principal diagnosis: IUp @ 34+2; pre-e Patient reports: movement normal, no new complaints, no loss of fluid, no vaginal bleeding Objective - Vital Signs Vital Signs: Vital Signs - 12hr 03/24/22 03/24/22 03/24/22 23:02 23:04 23:07 Temperature Pulse Rate 93 H 89 89 Respiratory 18 Rate Blood Pressure 151/71 Blood Pressure 151/71 [Left] O2 Sat by Pulse 99 100 100 Oximetry 03/24/22 03/24/22 03/24/22 23:12 23:17 23:22 Temperature Pulse Rate 86 81 90 Respiratory Rate Blood Pressure Blood Pressure [Left] O2 Sat by Pulse 98 99 99 Oximetry 03/24/22 03/24/22 03/24/22 23:27 23:32 23:37 Temperature Pulse Rate 89 94 H 95 H Respiratory Rate Blood Pressure Blood Pressure [Left] O2 Sat by Pulse 100 99 99 Oximetry 03/24/22 03/24/22 03/24/22 23:42 23:47 23:52 Temperature Pulse Rate 85 88 89 Respiratory Rate Blood Pressure Blood Pressure [Left] O2 Sat by Pulse 99 100 99 Oximetry 03/24/22 03/24/22 03/25/22 23:57 23:59 00:02 Temperature Pulse Rate 84 86 93 H Respiratory Rate Blood Pressure 121/84 Blood Pressure [Left] O2 Sat by Pulse 99 99 Oximetry 03/25/22 03/25/22 03/25/22 00:07 00:12 00:17 Temperature Pulse Rate 78 89 84 Respiratory Rate Blood Pressure Blood Pressure [Left] O2 Sat by Pulse 98 98 99 Oximetry 03/25/22 03/25/22 03/25/22 00:22 00:27 00:32 Temperature Pulse Rate 88 90 86 Respiratory Rate Blood Pressure Blood Pressure [Left] O2 Sat by Pulse 98 98 97 Oximetry 03/25/22 03/25/22 03/25/22 00:37 00:42 00:47 Temperature Pulse Rate 89 92 H 93 H Respiratory Rate Blood Pressure Blood Pressure [Left] O2 Sat by Pulse 97 97 97 Oximetry 03/25/22 03/25/22 03/25/22 00:52 00:57 00:59 Temperature Pulse Rate 93 H 94 H 98 H Respiratory Rate Blood Pressure 118/80 Blood Pressure [Left] O2 Sat by Pulse 97 98 Oximetry 03/25/22 03/25/22 03/25/22 01:02 01:07 01:12 Temperature Pulse Rate 87 93 H 94 H Respiratory Rate Blood Pressure Blood Pressure [Left] O2 Sat by Pulse 96 97 97 Oximetry 03/25/22 03/25/22 03/25/22 01:17 01:22 01:27 Temperature Pulse Rate 92 H 94 H 94 H Respiratory Rate Blood Pressure Blood Pressure [Left] O2 Sat by Pulse 97 97 97 Oximetry 03/25/22 03/25/22 03/25/22 01:32 01:37 01:42 Temperature Pulse Rate 94 H 94 H 92 H Respiratory Rate Blood Pressure Blood Pressure [Left] O2 Sat by Pulse 97 97 98 Oximetry 03/25/22 03/25/22 03/25/22 01:47 01:52 01:57 Temperature Pulse Rate 86 95 H 100 H Respiratory Rate Blood Pressure Blood Pressure [Left] O2 Sat by Pulse 97 97 97 Oximetry 03/25/22 03/25/22 03/25/22 02:00 02:02 02:07 Temperature Pulse Rate 91 H 91 H 95 H Respiratory Rate Blood Pressure 121/80 Blood Pressure [Left] O2 Sat by Pulse 97 97 Oximetry 03/25/22 03/25/22 03/25/22 02:12 02:17 02:22 Temperature Pulse Rate 104 H 95 H 96 H Respiratory Rate Blood Pressure Blood Pressure [Left] O2 Sat by Pulse 98 97 97 Oximetry 03/25/22 03/25/22 03/25/22 02:27 02:32 02:37 Temperature Pulse Rate 113 H 100 H 93 H Respiratory Rate Blood Pressure Blood Pressure [Left] O2 Sat by Pulse 98 97 97 Oximetry 03/25/22 03/25/22 03/25/22 02:42 02:47 02:52 Temperature Pulse Rate 99 H 95 H 86 Respiratory Rate Blood Pressure Blood Pressure [Left] O2 Sat by Pulse 97 97 97 Oximetry 03/25/22 03/25/22 03/25/22 02:57 03:00 03:02 Temperature Pulse Rate 90 98 H 95 H Respiratory Rate Blood Pressure 117/86 Blood Pressure [Left] O2 Sat by Pulse 98 98 Oximetry 03/25/22 03/25/22 03/25/22 03:07 03:12 03:17 Temperature Pulse Rate 89 85 94 H Respiratory Rate Blood Pressure Blood Pressure [Left] O2 Sat by Pulse 98 98 98 Oximetry 03/25/22 03/25/22 03/25/22 03:22 03:27 03:32 Temperature Pulse Rate 83 90 93 H Respiratory Rate Blood Pressure Blood Pressure [Left] O2 Sat by Pulse 97 98 98 Oximetry 03/25/22 03/25/22 03/25/22 03:37 03:42 03:47 Temperature Pulse Rate 94 H 95 H 95 H Respiratory Rate Blood Pressure Blood Pressure [Left] O2 Sat by Pulse 98 98 98 Oximetry 03/25/22 03/25/22 03/25/22 03:52 03:57 03:59 Temperature Pulse Rate 102 H 90 88 Respiratory Rate Blood Pressure 129/80 Blood Pressure [Left] O2 Sat by Pulse 98 97 Oximetry 03/25/22 03/25/22 03/25/22 04:04 04:11 04:16 Temperature 98.6 F Pulse Rate 97 H 97 H 110 H Respiratory 18 Rate Blood Pressure Blood Pressure [Left] O2 Sat by Pulse 98 98 99 Oximetry 03/25/22 03/25/22 03/25/22 04:21 04:26 04:31 Temperature Pulse Rate 96 H 94 H 105 H Respiratory Rate Blood Pressure Blood Pressure [Left] O2 Sat by Pulse 99 98 98 Oximetry 03/25/22 03/25/22 03/25/22 04:36 04:41 04:46 Temperature Pulse Rate 94 H 100 H 91 H Respiratory Rate Blood Pressure Blood Pressure [Left] O2 Sat by Pulse 99 99 99 Oximetry 03/25/22 03/25/22 03/25/22 04:51 04:56 05:00 Temperature Pulse Rate 93 H 88 83 Respiratory Rate Blood Pressure 132/79 Blood Pressure [Left] O2 Sat by Pulse 99 98 Oximetry 03/25/22 03/25/22 03/25/22 05:01 05:06 05:11 Temperature Pulse Rate 88 98 H 101 H Respiratory Rate Blood Pressure Blood Pressure [Left] O2 Sat by Pulse 100 99 99 Oximetry 03/25/22 03/25/22 03/25/22 05:16 05:21 05:26 Temperature Pulse Rate 93 H 102 H 88 Respiratory Rate Blood Pressure Blood Pressure [Left] O2 Sat by Pulse 98 98 99 Oximetry 03/25/22 03/25/22 03/25/22 05:31 05:36 05:41 Temperature Pulse Rate 91 H 90 92 H Respiratory Rate Blood Pressure Blood Pressure [Left] O2 Sat by Pulse 98 99 98 Oximetry 03/25/22 03/25/22 03/25/22 05:46 05:51 05:56 Temperature Pulse Rate 91 H 91 H 89 Respiratory Rate Blood Pressure Blood Pressure [Left] O2 Sat by Pulse 98 99 99 Oximetry 03/25/22 03/25/22 03/25/22 06:00 06:01 06:06 Temperature Pulse Rate 85 89 92 H Respiratory Rate Blood Pressure 133/87 Blood Pressure [Left] O2 Sat by Pulse 99 98 Oximetry 03/25/22 03/25/22 03/25/22 06:11 06:16 06:21 Temperature Pulse Rate 94 H 93 H 89 Respiratory Rate Blood Pressure Blood Pressure [Left] O2 Sat by Pulse 98 98 99 Oximetry 03/25/22 03/25/22 03/25/22 06:26 06:31 06:36 Temperature Pulse Rate 82 83 83 Respiratory Rate Blood Pressure Blood Pressure [Left] O2 Sat by Pulse 99 98 97 Oximetry 03/25/22 03/25/22 03/25/22 06:41 06:46 06:51 Temperature Pulse Rate 78 75 82 Respiratory Rate Blood Pressure Blood Pressure [Left] O2 Sat by Pulse 97 96 97 Oximetry 03/25/22 03/25/22 03/25/22 06:56 06:59 07:01 Temperature Pulse Rate 87 79 86 Respiratory Rate Blood Pressure 125/68 Blood Pressure [Left] O2 Sat by Pulse 97 97 Oximetry 03/25/22 03/25/22 03/25/22 07:06 07:11 07:16 Temperature Pulse Rate 87 93 H 82 Respiratory Rate Blood Pressure Blood Pressure [Left] O2 Sat by Pulse 97 98 96 Oximetry 03/25/22 03/25/22 03/25/22 07:21 07:26 07:31 Temperature Pulse Rate 89 89 85 Respiratory Rate Blood Pressure Blood Pressure [Left] O2 Sat by Pulse 96 99 97 Oximetry 03/25/22 03/25/22 03/25/22 07:36 07:41 07:46 Temperature Pulse Rate 87 89 75 Respiratory Rate Blood Pressure Blood Pressure [Left] O2 Sat by Pulse 97 98 97 Oximetry 03/25/22 03/25/22 03/25/22 07:51 07:56 08:01 Temperature Pulse Rate 85 85 99 H Respiratory Rate Blood Pressure Blood Pressure [Left] O2 Sat by Pulse 97 97 99 Oximetry 03/25/22 03/25/22 03/25/22 08:03 08:15 08:20 Temperature Pulse Rate 93 H 96 H 107 H Respiratory Rate Blood Pressure 132/84 Blood Pressure [Left] O2 Sat by Pulse 98 99 Oximetry 03/25/22 03/25/22 03/25/22 08:25 08:30 08:35 Temperature Pulse Rate 99 H 92 H 81 Respiratory Rate Blood Pressure Blood Pressure [Left] O2 Sat by Pulse 99 98 99 Oximetry 03/25/22 03/25/22 03/25/22 08:40 08:45 08:50 Temperature Pulse Rate 87 92 H 87 Respiratory Rate Blood Pressure Blood Pressure [Left] O2 Sat by Pulse 99 99 100 Oximetry 03/25/22 03/25/22 03/25/22 08:55 08:59 09:00 Temperature Pulse Rate 87 81 84 Respiratory Rate Blood Pressure 134/83 Blood Pressure [Left] O2 Sat by Pulse 98 99 Oximetry 03/25/22 03/25/22 03/25/22 09:05 09:10 09:15 Temperature Pulse Rate 90 94 H 75 Respiratory Rate Blood Pressure Blood Pressure [Left] O2 Sat by Pulse 99 100 98 Oximetry 03/25/22 03/25/22 09:20 09:25 Temperature Pulse Rate 75 77 Respiratory Rate Blood Pressure Blood Pressure [Left] O2 Sat by Pulse 98 98 Oximetry - Exam Abdomen: Present: normal appearance, soft. Absent: distention, tenderness FHR: auscultation normal - Labs Labs: Abnormal Labs 03/15/22 03/15/22 03/15/22 16:20 16:45 16:45 WBC 12.7 H RBC 3.45 L RDW 15.5 H Sodium Potassium Carbon Dioxide BUN Creatinine 0.4 L Glucose Uric Acid 2.9 L Alkaline Phosphatase Lactate Dehydrogenase 410 H Total Protein Albumin Urine Blood Moderate A 03/15/22 03/17/22 03/17/22 20:35 20:01 20:01 WBC 13.4 H RBC 3.32 L RDW Sodium Potassium 3.4 L Carbon Dioxide 19 L 21 L BUN 5 L 4 L Creatinine 0.3 L 0.4 L Glucose 105 H Uric Acid Alkaline Phosphatase 207 H Lactate Dehydrogenase Total Protein 5.8 L Albumin 3.0 L Urine Blood 03/19/22 03/19/22 03/22/22 07:56 07:56 Unknown WBC 13.8 H 15.8 H RBC 3.42 L RDW 15.8 H Sodium 135 L Potassium Carbon Dioxide 21 L BUN 4 L Creatinine 0.4 L Glucose Uric Acid Alkaline Phosphatase 216 H Lactate Dehydrogenase Total Protein 5.8 L Albumin 3.3 L Urine Blood 03/22/22 Unknown WBC RBC RDW Sodium 136 L Potassium Carbon Dioxide 20 L BUN 6 L Creatinine 0.4 L Glucose Uric Acid Alkaline Phosphatase 267 H Lactate Dehydrogenase Total Protein Albumin 3.4 L Urine Blood
[2022-03-25] MEDS ORDERED: fentaNYL 100 MCG/2 ML INJ IV ONE (19:35)
[2022-03-25] MEDS ORDERED: fentaNYL 100 MCG/2 ML INJ IV PRN (19:39)
[2022-03-25] MEDS ORDERED: DINOPROSTONE 10 MG VAG SUPP VG ONE (22:00)
[2022-03-26] MEDS: fentaNYL 100 MCG/2 ML INJ IV PRN ×3 (03:19→10:05)
[2022-03-26] MEDS ORDERED: AMPICILLIN/NS 2 GM/100 ML 2 GM/100 ML BAG IV SCH (11:00)
--- NOTE | 2022-03-26 11:33 | Progress Note ---
Assessment and Plan - Patient Problems (1) 34 weeks gestation of Current Visit: Yes Status: Acute Plan to address problem: SVE as above Pitocin ordered Ampicillin for GBS unknown Discussed pain management via IV medications versus epidural. Patient desires epidural One sever range BP this AM Will continue to monitor (2) Elevated blood pressure affecting in third trimester, antepartum Current Visit: No Status: Acute Subjective - Subjective Date of service: 03/26/22 Principal diagnosis: IUp @ 34+3; pre-e Interval history: Ptient complains fo pain from contractions. Considering IV medication versus epidural. Denies leakage of fluid and vaginal bleeding. Patient reports: movement normal, no new complaints, no loss of fluid, no vaginal bleeding Objective - Vital Signs Vital Signs: Vital Signs - 12hr 03/25/22 03/26/22 03/26/22 23:44 00:43 01:43 Pulse Rate 90 82 90 Respiratory Rate Blood Pressure 137/77 122/76 132/86 03/26/22 03/26/22 03/26/22 02:45 03:19 03:42 Pulse Rate 83 70 Respiratory 16 Rate Blood Pressure 166/81 132/72 03/26/22 03/26/22 03/26/22 04:44 05:44 06:43 Pulse Rate 83 77 75 Respiratory Rate Blood Pressure 132/71 130/64 136/91 03/26/22 03/26/22 03/26/22 07:43 09:24 09:44 Pulse Rate 90 93 H 73 Respiratory Rate Blood Pressure 137/81 141/90 173/77 03/26/22 10:43 Pulse Rate 70 Respiratory Rate Blood Pressure 141/79 - Exam Abdomen: Present: normal appearance, soft. Absent: distention, tenderness FHR: category 1 Uterine Contraction Monitor Mode: External Cervical Dilatation: 3 Cervical Effacement Percentage: 80 station: -3 Uterine Contraction Pattern: Regular - Labs Labs: Abnormal Labs 03/15/22 03/15/22 03/15/22 16:20 16:45 16:45 WBC 12.7 H RBC 3.45 L RDW 15.5 H Sodium Potassium Carbon Dioxide BUN Creatinine 0.4 L Glucose Uric Acid 2.9 L Alkaline Phosphatase Lactate Dehydrogenase 410 H Total Protein Albumin Urine Blood Moderate A 03/15/22 03/17/22 03/17/22 20:35 20:01 20:01 WBC 13.4 H RBC 3.32 L RDW Sodium Potassium 3.4 L Carbon Dioxide 19 L 21 L BUN 5 L 4 L Creatinine 0.3 L 0.4 L Glucose 105 H Uric Acid Alkaline Phosphatase 207 H Lactate Dehydrogenase Total Protein 5.8 L Albumin 3.0 L Urine Blood 03/19/22 03/19/22 03/22/22 07:56 07:56 Unknown WBC 13.8 H 15.8 H RBC 3.42 L RDW 15.8 H Sodium 135 L Potassium Carbon Dioxide 21 L BUN 4 L Creatinine 0.4 L Glucose Uric Acid Alkaline Phosphatase 216 H Lactate Dehydrogenase Total Protein 5.8 L Albumin 3.3 L Urine Blood 03/22/22 Unknown WBC RBC RDW Sodium 136 L Potassium Carbon Dioxide 20 L BUN 6 L Creatinine 0.4 L Glucose Uric Acid Alkaline Phosphatase 267 H Lactate Dehydrogenase Total Protein Albumin 3.4 L Urine Blood
[2022-03-26] MEDS: PRENATAL VIT27-FE FUMARATE-FOLIC ACID VIT TAB PO SCH (11:34)
[2022-03-26] MEDS: OXYTOCIN DRIP 30 UNITS/500 ML BAG IV SCH ×3 (11:45→12:59)
[2022-03-26] MEDS ORDERED: ePHEDrine SULFATE 50 MG/1 ML INJ ONE (11:55)
[2022-03-26] MEDS ORDERED: BETAMET ACET/BETAMET NA PH 6 MG/ML INJ 5 ML MDV IM SCH (12:00)
--- NOTE | 2022-03-26 12:21 | Anesthesia Consultation ---
Anesthesia Consult and Med Hx Date of service: 03/26/22 - Airway Anesthetic Teeth Evaluation: Good ROM Head & Neck: Adequate Mental/Hyoid Distance: Adequate Mallampati Class: Class II Intubation Access Assessment: Good - Pulmonary Exam CTA: Yes - Cardiac Exam Cardiac Exam: RRR - Pre-Operative Health Status ASA Pre-Surgery Classification: ASA1 Proposed Anesthetic Plan: Epidural - Pulmonary Hx Asthma: No COPD: No Hx Pneumonia: No - Cardiovascular System Hx Hypertension: No - Central Nervous System Hx Seizures: No Hx Psychiatric Problems: No - Endocrine Hx Renal Disease: No Hx End Stage Renal Disease: No Hx Hypothyroidism: No Hx Hyperthyroidism: No - Hematic Hx Anemia: No 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
[2022-03-26] MEDS ORDERED: NALOXONE 0.4 MG/1 ML INJ IV PRN (12:22)
[2022-03-26] MEDS ORDERED: ePHEDrine SULFATE 50 MG/1 ML INJ IV PRN (12:22)
--- NOTE | 2022-03-26 12:22 | Progress Note ---
Labor Epidural - Labor Epidural Start Time: 12:03 Stop Time: 12:09 Performed by:: LILIA NORMAN Procedure: Patient is requesting epidural for labor and pain. H&P, labs were reviewed. Patient IDed, all questions and concerns were answered, and consent was signed. Timeout was performed at bedside. Patient in sitting position. Sterile prep and drape was performed. 3ml of 1% lidocaine skin wheal at L[3]- L [4]. 17- gauge Tuohy epidural needle was advanced to loss of resistance with air technique cm. Negative CSF negative blood. Epidural catheter advanced to [12] centimeters. [negative] Aspiration [negative] test dose. Sterile dressing applied. Patient tolerated procedure.
[2022-03-26] MEDS: LACTATED RINGERS 1,000 ML IV SCH ×2 (12:58→18:03)
[2022-03-26] MEDS: fentaNYL-BUPIV 2 MCG/ML-0.125% 200 MCG/100 ML BAG EPIDURAL SCH ×2 (12:58→22:29)
--- NOTE | 2022-03-26 15:49 | Progress Note ---
Assessment and Plan - Patient Problems (1) 34 weeks gestation of Current Visit: Yes Status: Acute Plan to address problem: Will continue with IOL Pitocin at 2 mU. Will continue to titrate Ampicillin Anticipate (2) Elevated blood pressure affecting in third trimester, antepartum Current Visit: No Status: Acute Plan to address problem: BP WNL currently Subjective - Subjective Principal diagnosis: IUp @ 34+3; pre-e Interval history: Patient comfortable s/p epidural Patient reports: movement normal, no new complaints, no loss of fluid, no vaginal bleeding Objective - Vital Signs Vital Signs: Vital Signs - 12hr 03/26/22 03/26/22 03/26/22 04:44 05:44 06:43 Pulse Rate 83 77 75 Blood Pressure 132/71 130/64 136/91 03/26/22 03/26/22 03/26/22 07:43 09:24 09:44 Pulse Rate 90 93 H 73 Blood Pressure 137/81 141/90 173/77 03/26/22 03/26/22 03/26/22 10:43 11:44 12:05 Pulse Rate 70 93 H 99 H Blood Pressure 141/79 177/82 164/89 03/26/22 03/26/22 03/26/22 12:11 12:15 12:40 Pulse Rate 96 H 73 68 Blood Pressure 152/86 167/65 118/61 03/26/22 03/26/22 03/26/22 12:56 13:10 13:26 Pulse Rate 62 66 64 Blood Pressure 118/73 115/76 117/73 03/26/22 03/26/22 03/26/22 13:41 13:55 14:10 Pulse Rate 66 60 63 Blood Pressure 119/78 115/76 125/69 03/26/22 03/26/22 14:26 14:40 Pulse Rate 75 62 Blood Pressure 119/90 119/81 - Exam FHR: category 2 Cervical Dilatation: 4 Cervical Effacement Percentage: 80 station: -2 Uterine Contraction Pattern: Irregular - Labs Labs: Abnormal Labs 03/15/22 03/15/22 03/15/22 16:20 16:45 16:45 WBC 12.7 H RBC 3.45 L RDW 15.5 H Sodium Potassium Carbon Dioxide BUN Creatinine 0.4 L Glucose Uric Acid 2.9 L Alkaline Phosphatase Lactate Dehydrogenase 410 H Total Protein Albumin Urine Blood Moderate A 03/15/22 03/17/22 03/17/22 20:35 20:01 20:01 WBC 13.4 H RBC 3.32 L RDW Sodium Potassium 3.4 L Carbon Dioxide 19 L 21 L BUN 5 L 4 L Creatinine 0.3 L 0.4 L Glucose 105 H Uric Acid Alkaline Phosphatase 207 H Lactate Dehydrogenase Total Protein 5.8 L Albumin 3.0 L Urine Blood 03/19/22 03/19/22 03/22/22 07:56 07:56 Unknown WBC 13.8 H 15.8 H RBC 3.42 L RDW 15.8 H Sodium 135 L Potassium Carbon Dioxide 21 L BUN 4 L Creatinine 0.4 L Glucose Uric Acid Alkaline Phosphatase 216 H Lactate Dehydrogenase Total Protein 5.8 L Albumin 3.3 L Urine Blood 03/22/22 Unknown WBC RBC RDW Sodium 136 L Potassium Carbon Dioxide 20 L BUN 6 L Creatinine 0.4 L Glucose Uric Acid Alkaline Phosphatase 267 H Lactate Dehydrogenase Total Protein Albumin 3.4 L Urine Blood
[2022-03-26] MEDS ORDERED: hydrALAZINE 20 MG/1 ML INJ IV PRN (17:07)
[2022-03-26] MEDS ORDERED: MAGNESIUM SULFATE 40GM/1000ML 40 GM/1,000 ML BAG IV SCH ×2 (18:00→23:45)
[2022-03-26] MEDS: AMPICILLIN/NS 1 GM/50 ML 1 GM/50 ML BAG IV SCH (20:38)
[2022-03-26] MEDS ORDERED: BUPIVACAINE/PF (0.25%) 2.5 MG/ML 10 ML VIAL INFILTRATI ONE ×2 (21:23→23:42)
--- NOTE | 2022-03-26 23:56 | Event Note ---
Date: 03/26/22 To patient room for complaint of pain. States it's due to her contractions. Anesthesia at bedside for re-dose. SVE /-1 with bloody show. AROM clear. SVE /0. Cat 2 FHT. Anticipate .
[2022-03-27] MEDS: AMPICILLIN/NS 1 GM/50 ML 1 GM/50 ML BAG IV SCH (01:00)
[2022-03-27] MEDS: fentaNYL-BUPIV 2 MCG/ML-0.125% 200 MCG/100 ML BAG EPIDURAL SCH (03:45)
[2022-03-27] MEDS ORDERED: miSOPROStol 25 MCG TAB VG ONE (04:11)
[2022-03-27] MEDS ORDERED: miSOPROStol 200 MCG TAB VG ONE (04:15)
--- NOTE | 2022-03-27 04:27 | Procedure Note ---
OB Delivery Note - Delivery Date of Delivery: 03/27/22 Surgeon: JM GORE Estimated blood loss: 300cc - Vaginal Delivery presentation: vertex Delivery position: OA Intrapartum events: preeclampsia Delivery induction: cervidil Delivery augmentation: pitocin Delivery monitor: external FHT, external uterine Route of delivery: Delivery placenta: spontaneous Delivery cord: nuchal cord Episiotomy: none Delivery laceration: 1st degree Delivery repair: vicryl Anesthesia: none Delivery comments: Patient C/C/3+. With good maternal pushing effort, female delivered. Nuchalx1 reduced. Cord clamped and cut and handed to NICU team. Placenta delivered spontaneously intact with three vessel cord. Fundal massage initiated. Cytotec 800 mcg OR. Mother in delivery room in stable condition. - Infant A at 1 minute: 7 at 5 minutes: 8 Gender: Female (2530g)
[2022-03-27] MEDS ORDERED: METHYLERGONOVINE MALEATE 0.2 MG/ML VIAL IM PRN (06:08)
[2022-03-27] MEDS ORDERED: diphenhydrAMINE 25 MG CAP PO PRN (06:08)
[2022-03-27] MEDS ORDERED: MAGNESIUM HYDROXIDE (MOM) ORAL LIQD UDC PO PRN (06:08)
[2022-03-27] MEDS ORDERED: WITCH HAZEL/ GLYCERIN PAD TP PRN (06:08)
[2022-03-27] MEDS ORDERED: ACETAMINOPHEN 325 MG TAB PO PRN (06:08)
[2022-03-27] MEDS ORDERED: oxyCODONE /ACETAMINOPHEN 5-325MG TAB PO PRN (06:08)
[2022-03-27] MEDS ORDERED: LANOLIN/ZINC/DIMETHICONE (LANSINOH) 7 GM TP PRN (06:08)
[2022-03-27] MEDS ORDERED: CARBOPROST TROMETHAMINE 250 MCG/1 ML INJ IM PRN (06:08)
[2022-03-27] MEDS ORDERED: LOPERAMIDE 2 MG CAP PO PRN (06:08)
[2022-03-27] MEDS ORDERED: PROMETHAZINE 25 MG TAB PO PRN (06:08)
[2022-03-27] MEDS ORDERED: PROMETHAZINE 25 MG RECT SUPP PR PRN (06:08)
[2022-03-27] MEDS ORDERED: miSOPROStol 100 MCG TAB PR PRN (06:08)
[2022-03-27] MEDS ORDERED: ONDANSETRON 4 MG/2 ML INJ IV PRN (06:08)
[2022-03-27] MEDS ORDERED: OXYTOCIN DRIP 30 UNITS/500 ML BAG IV SCH (06:08)
--- NOTE | 2022-03-27 07:55 | Progress Note ---
Assessment and Plan A: 41 y.o. s/p , Pre Eclampsia with severe features, ~ 5 hours. - Patient Problems (1) Pre-eclampsia in period Current Visit: Yes Status: Acute Plan to address problem: Continue with magnesium infusion. - Due to be turned off at 0345 on 03/28. -Transfer to once magnesium is turned off. Continue to monitor blood pressures. - Labetalol 300mg BID started. Continue to monitor I&O's. Continue to monitor for worsening s/sx of Pre Eclampsia. Subjective - Subjective Date of service: 03/27/22 Principal diagnosis: s/p , pre eclampsia with severe features on mag infusion Interval history: Pt denies NG, blurred vision, spots before her eyes, chest pain, shortness of breath, upper abdominal pain, vaginal bleeding, ctxs, LOF. Patient reports: appetite normal, pain well controlled, flatus : doing well, in NICU Objective - Vital Signs Latest vital signs: Vital Signs Temp Pulse Resp BP BP Pulse Ox 03/27/22 07:40 109 H 139/81 03/27/22 07:25 120 H 142/86 03/27/22 07:10 105 H 134/77 03/27/22 06:55 105 H 138/80 03/27/22 06:40 117 H 155/90 03/27/22 06:25 127 H 162/91 03/27/22 06:10 116 H 163/95 03/27/22 05:55 115 H 159/94 03/27/22 05:40 111 H 158/99 158/99 03/27/22 05:36 117 H 157/87 157/87 03/27/22 05:10 165/76 165/76 03/27/22 05:09 176/81 03/27/22 05:02 107 H 176/81 176/81 03/27/22 04:55 106 H 213/106 03/27/22 04:40 92 H 140/89 140/89 03/27/22 04:30 92 H 172/88 172/88 03/27/22 04:25 93 H 164/110 03/27/22 04:13 88 166/94 166/94 03/27/22 03:56 113 H 156/106 03/27/22 03:10 84 118/70 118/70 03/27/22 02:56 82 109/67 03/27/22 02:40 98.1 F 81 18 109/67 109/67 03/27/22 02:25 88 128/82 03/27/22 02:10 88 124/76 03/27/22 01:55 89 124/75 03/27/22 01:40 85 124/76 03/27/22 01:25 88 119/70 03/27/22 01:10 88 126/77 03/27/22 00:55 84 124/75 03/27/22 00:41 97 H 115/72 03/27/22 00:25 92 H 118/72 03/27/22 00:10 98 H 116/70 03/26/22 23:57 96 H 131/72 03/26/22 23:40 108 H 138/64 03/26/22 23:25 104 H 123/62 03/26/22 23:10 100 H 131/63 03/26/22 22:56 98.2 F 109 H 20 121/75 121/75 03/26/22 22:40 107 H 138/81 03/26/22 22:25 103 H 139/80 03/26/22 22:11 99 H 136/74 03/26/22 21:55 93 H 126/70 03/26/22 21:41 89 135/75 03/26/22 21:25 106 H 170/88 03/26/22 21:11 110 H 167/85 03/26/22 20:55 96 H 147/80 03/26/22 20:40 89 141/77 03/26/22 20:25 88 145/82 03/26/22 20:11 86 141/82 03/26/22 19:56 78 142/81 03/26/22 19:40 87 147/74 03/26/22 19:15 98.2 F 03/26/22 19:11 75 129/72 03/26/22 19:10 75 135/79 97 03/26/22 18:55 72 133/71 03/26/22 18:40 75 142/69 03/26/22 18:27 75 161/84 03/26/22 18:10 87 151/81 03/26/22 18:09 99.6 F 03/26/22 17:57 73 159/90 03/26/22 17:41 63 130/82 03/26/22 17:25 67 134/73 03/26/22 16:40 75 189/92 03/26/22 15:57 85 164/76 03/26/22 14:56 148/74 03/26/22 14:40 62 119/81 03/26/22 14:26 75 119/90 03/26/22 14:10 63 125/69 03/26/22 13:55 60 115/76 03/26/22 13:41 66 119/78 03/26/22 13:26 64 117/73 03/26/22 13:10 66 115/76 03/26/22 12:56 62 118/73 03/26/22 12:40 68 118/61 03/26/22 12:15 73 167/65 03/26/22 12:11 96 H 152/86 03/26/22 12:05 99 H 164/89 03/26/22 11:44 93 H 177/82 03/26/22 10:43 70 141/79 03/26/22 09:44 73 173/77 03/26/22 09:24 93 H 141/90 Intake and Output 03/26/22 03/27/22 03/27/22 22:59 06:59 14:59 Intake Total 401.65 100 Output Total 600 300 Balance -198.35 -200 Intake: IV 401.65 100 AMPICILLIN/NS 1 GM/50 ML 100 1 gm In 50 ml @ 100 mls/ hr IV Q6H DAWNA Rx#: [id number] Lactated Ringers 1,000 ml 381.25 @ 75 mls/hr IV DIRECT DAWNA Rx#:[id number] PITOCin/NS 30 UNIT/500ML 20.4 30 units In 500 ml @ 1 MILLIUNITS/MIN 1 mls/hr IV TITR DAWNA Rx#:[id number] Output: Urine 600 300 Void 600 300 Other: Total, Output Amount 600 300 Estimated Blood Loss 350 - Exam Narrative Exam: Barriga catheter emptied for 2700ml of clear yellow urine. Cardiovascular: Present: Normal S1, Normal S2 Lungs: Present: Clear to auscultation Abdomen: Present: normal appearance, soft Uterus: Present: normal Extremities: Present: normal Deep Tendon Reflex Grade: Normal +2 - Labs Labs: Abnormal lab results 03/26/22 03/27/22 Range/Units 22:08 04:50 Magnesium 2.60 H 5.90 H (1.7-2.3) mg/dL
[2022-03-27] MEDS ORDERED: BETAMET ACET/BETAMET NA PH 6 MG/ML INJ 5 ML MDV IM SCH (10:00)
[2022-03-27] MEDS ORDERED: LACTATED RINGERS 1,000 ML ONE (14:12)
[2022-03-27 19:02] LABS: Hematocrit 28.4 % (30.3-42.9); Hemoglobin 9.7 gm/dl (10.1-14.3)
--- NOTE | 2022-03-28 03:56 | Post Anesthesia Evaluation ---
- Post Anesthesia Evaluation Patient Participated: No Airway Patent: Yes Stable Respiratory Function: Yes Nausea/Vomiting: No Temp > 96.8F: Yes Pain Manageable: Yes Adequeate Hydration: Yes Anesthesia Complications: No Block Receding Appropriately: Yes Patient on Ventilator: No
[2022-03-28] MEDS: IBUPROFEN 800 MG TAB PO SCH ×6 (06:05→23:57)
--- NOTE | 2022-03-28 07:50 | Progress Note ---
Assessment and Plan Patient resting, no complaints. will continue to monitor blood pressures on Labetalol and titrate as needed. b/p's mostly NL through the night - last b/p 152/95. no cerebral signs of pre-e. lochia scant, fundus firm. Pt reports baby girl doing well in NICU. - Patient Problems (1) Pre-eclampsia during in third trimester, antepartum Current Visit: No Status: Acute (2) (spontaneous vaginal delivery) Current Visit: Yes Status: Acute Subjective - Subjective Date of service: 03/28/22 Principal diagnosis: day #1 s/p ; pre-e Patient reports: appetite normal, voiding normally, pain well controlled, ambulating normally, no dizzy ambulation, no nauseated : in NICU Objective - Vital Signs Latest vital signs: Vital Signs Temp Pulse Resp BP BP Pulse Ox Pulse Ox 03/28/22 06:05 79 18 152/95 96 96 03/28/22 05:14 98.2 F 03/28/22 05:01 79 96 03/28/22 04:56 79 125/75 97 03/28/22 04:51 86 96 03/28/22 04:46 76 98 03/28/22 04:41 74 97 03/28/22 04:36 74 98 03/28/22 04:31 75 97 03/28/22 04:26 73 96 03/28/22 04:21 80 97 03/28/22 04:16 78 97 03/28/22 04:11 79 97 03/28/22 04:06 91 H 98 03/28/22 04:01 86 98 03/28/22 03:56 81 125/91 98 03/28/22 03:51 90 98 03/28/22 03:46 84 97 03/28/22 03:41 81 99 03/28/22 03:36 78 98 03/28/22 03:31 86 98 03/28/22 03:26 80 96 03/28/22 03:21 75 95 03/28/22 03:17 81 94 03/28/22 03:16 78 96 03/28/22 03:11 78 96 03/28/22 03:06 78 96 03/28/22 03:01 82 96 03/28/22 02:56 79 108/60 96 03/28/22 02:51 80 96 03/28/22 02:46 79 95 03/28/22 02:41 82 98 03/28/22 02:36 81 96 03/28/22 02:31 79 96 03/28/22 02:26 80 96 03/28/22 02:21 82 96 03/28/22 02:16 82 96 03/28/22 02:11 96 H 98 03/28/22 02:06 84 96 03/28/22 02:01 84 95 03/28/22 01:56 80 109/59 95 03/28/22 01:53 86 93 03/28/22 01:51 84 95 03/28/22 01:47 84 94 03/28/22 01:46 86 96 03/28/22 01:41 83 95 03/28/22 01:40 83 93 03/28/22 01:36 83 96 03/28/22 01:31 83 95 03/28/22 01:26 84 94 03/28/22 01:21 97 H 98 03/28/22 01:20 86 94 03/28/22 01:16 84 95 03/28/22 01:11 86 94 03/28/22 01:06 88 94 03/28/22 01:01 86 94 03/28/22 00:56 84 109/57 94 03/28/22 00:55 85 94 03/28/22 00:51 84 95 03/28/22 00:50 83 94 03/28/22 00:46 82 95 03/28/22 00:41 83 95 03/28/22 00:36 81 96 03/28/22 00:31 81 96 03/28/22 00:26 76 96 03/28/22 00:21 80 96 03/28/22 00:16 89 97 03/28/22 00:11 84 96 03/28/22 00:06 79 96 03/28/22 00:01 81 97 22 23:56 81 110/76 97 1822 23:51 84 97 1822 23:46 89 98 071822 23:41 81 98 1822 23:36 86 98 071822 23:31 85 99 071822 23:26 81 97 071822 23:21 85 97 1822 23:16 89 97 0718/22 23:11 81 97 03/27/22 23:06 83 98 03/27/22 23:03 98.2 F 17 03/27/22 23:01 87 97 03/27/22 22:56 77 149/82 03/27/22 22:52 98 03/27/22 22:48 81 147/85 03/27/22 21:56 81 127/75 03/27/22 20:56 80 133/77 03/27/22 19:56 83 147/75 03/27/22 19:40 98.6 F 03/27/22 18:56 87 141/83 03/27/22 18:30 98.6 F 16 03/27/22 17:56 80 137/69 03/27/22 17:30 98.7 F 18 03/27/22 16:56 78 134/70 03/27/22 15:56 79 133/61 03/27/22 14:56 88 130/70 03/27/22 13:56 81 132/81 03/27/22 12:56 90 110/87 03/27/22 11:56 88 128/74 03/27/22 10:56 91 H 118/66 03/27/22 09:56 96 H 132/85 03/27/22 09:31 114/66 03/27/22 08:56 106 H 114/66 03/27/22 07:55 98.1 F 103 H 16 150/81 150/81 Intake and Output 03/27/22 03/27/22 03/28/22 15:59 23:59 07:59 Output Total 1600 2049 800 Balance -1599 -2049 -800 Output: Urine 1600 2049 800 Indwelling Catheter 1600 2049 800 Other: Total, Output Amount 1600 200 400 - Exam Breasts: Present: normal Cardiovascular: Present: Regular rate Lungs: Present: Normal air movement Abdomen: Present: normal appearance, soft Vulva: both: normal Uterus: Present: normal, firm, fundal height below umbilicus Extremities: Present: normal Deep Tendon Reflex Grade: Normal +2 - Labs Labs: Abnormal lab results 03/27/22 03/27/22 03/27/22 Range/Units 12:00 18:12 18:12 Hgb 9.7 L (10.1-14.3) gm/dl Hct 28.4 L (30.3-42.9) % Magnesium 6.00 H 3.90 H (1.7-2.3) mg/dL 03/28/22 Range/Units 01:21 Hgb (10.1-14.3) gm/dl Hct (30.3-42.9) % Magnesium 4.40 H (1.7-2.3) mg/dL
[2022-03-28 09:12] LABS: BUN/Creatinine Ratio 6; Blood Urea Nitrogen 5 mg/dL (7-17); Calcium 8.4 mg/dL (8.4-10.2); Hemolysis Index 5
[2022-03-28 09:22] LABS: Bilirubin,Direct < 0.2 mg/dL (0-0.2)
[2022-03-28] MEDS: PRENATAL VIT27-FE FUMARATE-FOLIC ACID VIT TAB PO SCH ×2 (10:40→20:38)
[2022-03-29] MEDS: IBUPROFEN 800 MG TAB PO SCH ×2 (06:00→12:45)
--- NOTE | 2022-03-29 09:11 | Discharge Summary ---
Providers - Providers Date of Admission: 03/15/22 15:50 Date of discharge: 03/29/22 Attending physician: JAJA SOLORIO 03/16/22 07:00 Consult to Physician [CONS] Routine Comment: Continued elevated blood pressures Consulting Provider: ANNA BASHIR Physician Instructions: Reason For Exam: 33 wks, new diagnosis of Pre Eclampsia on 03/1103/17/22 17:05 Consult to Physician [CONS] Routine Comment: Consulting Provider: RIAZ GLASS Physician Instructions: Reason For Exam: Will delivery @ 34 weeks Primary care physician: JAJA SOLORIO Hospitalization Reason for admission: observation Delivery: Episiotomy: none Laceration: none Other procedures: none complications: other (Pre Eclampsia with severe features. magnesium infusion. ) Discharge diagnosis: delivery [place] baby: female Pertinent studies: Pt denies NG, blurred vision, spots before her eyes, chest pain, shortness of breath, and upper abdominal pain. Pt states that she has a blood pressure cuff at home and she knows how to take a blood pressure. We discussed she should call the mobile application developer provider for the following: NG, blurred vision, spots before her eyes, chest pain, shortness of breath, upper abdominal pain, and those symptoms w/wo a blood pressure of 140/90 or greater. Also discussed with patient that she will need to continue to take her Labetalol twice daily. Pt verbalized understanding of all instructions. Hospital course: S: Pt doing well. Ambulating, voiding, and passing flatus okay. O: VSS. Blood pressure ranges have been mostly 130-140's/80's. Fundus firm, minimal bleeding noted. Adequate I&O's. A: 41 y.o. s/p , Pre Eclampsia with severe features, s/p mag infusion. In good condition . P: Discharge home with instructions. Pt to scheduled blood pressure check in the office in 1 week. Condition at discharge: Good Disposition: 01 HOME / SELF CARE / HOMELESS - Discharge Diagnoses (1) Pre-eclampsia in period Status: Acute Plan - Discharge Medications Prescriptions: Labetalol HCl [Labetalol 300mg TAB] 300 mg PO BID #90 - Provider Discharge Summary Activity: routine, no sex for 6 weeks, no heavy lifting 4 weeks, no strenuous exercise Diet: routine Instructions: routine Additional instructions: [] Smoking cessation referral if applicable(refer to patient education folder for contact #) [] Refer to [facility]'s [facility] Booklet Call your doctor immediately for: * Fever > 100.5 * Heavy vaginal bleeding ( >1 pad per hour) * Severe persistent headache * Shortness of breath * Reddened, hot, painful area to leg or breast * Drainage or odor from incision. * Keep incision clean and dry at all times and follow doctor's instructions regarding bathing/showering - Follow up plan Follow up: JAJA SOLORIO MD [Primary Care Provider] - 7 Days (- Congratulations on the of your baby girl! - Thank you for allowing us to take care of you. - Please schedule your blood pressure check in the office in 1 week. - Please call our office and speak to the mobile application developer provider if any of the following occur: headache, blurred vision, spots before your eyes, feeling like you can't catch your breath, severe pain in your belly, , chest pain, and/or if you have any of those symptoms with a blood pressure of 140/90 or greater. - Should you have any questions or concerns after discharge, please do not hesitate to call us at . )
[2022-03-29 12:45] VITALS: BP 148/80
[2022-03-29] MEDS: PRENATAL VIT27-FE FUMARATE-FOLIC ACID VIT TAB PO SCH (12:45)
== END 2022-03-29 13:01 | disposition home or self-care (01) | DRG 807 ==
LOC: TRG 15:49 → APU 15:50 → TRG 18:12 → LD 18:16 → OB 03-28 05:08
PROVIDERS: ADMIT Obstetrics & Gynecology; ATTEND Obstetrics & Gynecology
PROC: 10907ZC Drainage of Amniotic Fluid, Therapeutic from Products of Conception, Via Natural or Artificial Opening (ICD-10-PCS; 2022-03-26)
PROC: 10E0XZZ Delivery of Products of Conception, External Approach (ICD-10-PCS; principal; 2022-03-27)
PROC: 3E0R3BZ Introduction of Anesthetic Agent into Spinal Canal, Percutaneous Approach (ICD-10-PCS; 2022-03-27)
PROC: 00HU33Z Insertion of Infusion Device into Spinal Canal, Percutaneous Approach (ICD-10-PCS; 2022-03-27)
PROC: 3E0P7VZ Introduction of Hormone into Female Reproductive, Via Natural or Artificial Opening (ICD-10-PCS; 2022-03-27)
PROC: 0HQ9XZZ Repair Perineum Skin, External Approach (ICD-10-PCS; 2022-03-27)
DX: O14.14 Severe pre-eclampsia complicating childbirth (principal); Z37.0 Single live birth; Z3A.33 33 weeks gestation of pregnancy; E87.6 Hypokalemia; Z20.822 Contact with and (suspected) exposure to COVID-19; O99.284 Endocrine, nutritional and metabolic diseases complicating childbirth; O69.81X0 Labor and delivery complicated by cord around neck, without compression, not applicable or unspecified; O70.0 First degree perineal laceration during delivery; O60.14X0 Preterm labor third trimester with preterm delivery third trimester, not applicable or unspecified; Z79.82 Long term (current) use of aspirin
CPT/HCPCS: 31720; 36415; 59025; 59200; 76815; 76819; 80048; 80053; 81001; 82247; 82248; 82565; 83615; 83735; 84450; 84460; 84550; 85014; 85018; 85027; 86850; 86900; 86901; 88307; G0378; J3490; J0290; J0360; J2590; J3010; J3475; J7120; U0003

== ENCOUNTER 2022-03-30 04:27 | Inpatient (IN) | payer OTHER ==
[2022-03-30] MEDS ORDERED: MAGNESIUM SULFATE 40GM/1000ML 40 GM/1,000 ML BAG IV ONE (05:01)
[2022-03-30] MEDS ORDERED: MAGNESIUM SULFATE 4 GM/100 ML BAG IV ONE (05:01)
--- NOTE | 2022-03-30 05:04 | Event Note ---
Date: 03/30/22 Medical screening examination note: 41-year-old female, who was diagnosed with preeclampsia at 37 weeks, , who just delivered, and who was just discharged yesterday from the labor and delivery floor for preeclampsia, returns with elevated blood pressure and persistent lower extremity swelling. She denies physical pain. Reports blood pressure to the [address] patient on monitoring tech. Start labetalol and magnesium. N.p.o., head of bed elevation. Patient currently awake and alert, protecting airway, moving 4 extremities and in no acute distress. Child dose of labetalol. Oncoming ER physician to perform detailed history and physical, and arrange for final and ultimate disposition Vital Signs 03/30/22 04:38 Temperature 98.2 F Pulse Rate 86 Respiratory 16 Rate Blood Pressure 154/89 O2 Sat by Pulse 98 Oximetry
[2022-03-30 05:19] LABS: Basophils % (Auto) 0.2 % (0.0-1.8); Eosinophils # (Auto) 0.2 K/mm3 (0.0-0.4); Eosinophils % (Auto) 1.9 % (0.0-4.3); Hematocrit 25.2 % (30.3-42.9); Hemoglobin 8.6 gm/dl (10.1-14.3); Lymphocytes # (Auto) 1.9 K/mm3 (1.2-5.4); Lymphocytes % (Auto) 15.8 % (13.4-35.0); Mean Corpuscular HGB Conc 34 % (30-34); Mean Corpuscular Volume 92 fl (79-97); Monocytes % (Auto) 8.2 % (0.0-7.3); Platelet Count 193 K/mm3 (140-440); Red Blood Count 2.75 M/mm3 (3.65-5.03); Red Cell Distribution Width 15.4 % (13.2-15.2)
[2022-03-30 05:28] LABS: INR 0.82 (0.87-1.13)
[2022-03-30 05:29] LABS: Partial Thromboplastin Time 25.8 Sec. (24.2-36.6)
[2022-03-30 05:44] LABS: Alanine Aminotransferase 36 units/L (7-56); BUN/Creatinine Ratio 12; Blood Urea Nitrogen 11 mg/dL (7-17); Calcium 9.1 mg/dL (8.4-10.2); Hemolysis Index 10; Uric Acid 7.5 mg/dL (3.5-7.6)
[2022-03-30 06:03] LABS: Bacteria,Urine 2+ /HPF (Negative); Mucus,Urine FEW /HPF
[2022-03-30 06:07] LABS: RBC,Urine > 182.0 /HPF (0.0-6.0)
[2022-03-30 06:11] LABS: Bilirubin,Urine Negative (Negative); Blood,Urine Large (Negative); Color,Urine Colorless (Yellow)
[2022-03-30 06:12] LABS: Urobilinogen,Urine 0.2 mg/dL (<2.0)
--- NOTE | 2022-03-30 07:54 | Emergency Department Report ---
ED General Adult HPI - General Chief complaint: High BP Stated complaint: HIGH B/P Time Seen by Provider: 03/30/22 07:52 Source: patient Mode of arrival: Ambulatory Limitations: No Limitations - History of Present Illness Initial comments: 41-year-old female, with 1 miscarriage in 2018 at 10 weeks gestation who was diagnosed with preeclampsia at 32 weeks and was admitted to the hospital at 33 weeks gestation only to have the baby at 34 5/7 weeks. She was discharge home on antihypertensive which she says she was taken faithfully but noticed her blood pressure climbing up the last 3 days. She called her Infant Toddler Lead Teacher nurse who suggested her be evaluated in the ED. She reports improvement in her bilateral leg edema but not completely resolved yet. He blood pressure on presentation ranges from 145 - 165 mmHg systolic. Pt was given medical screening and started on ivf labetolol and magnesium and made comfortable. Pt denies any NG, visual changes or seizure episode. No other modifying or associated factors noted. Severity scale (0 -10): 1 - Related Data Home Medications Medication Instructions Recorded Confirmed Last Taken Aspirin BABY CHEW TAB 81 mg PO QDAY 03/15/22 03/30/22 03/14/22 1 Vit-Fe Fumar-FA [ 1 tab PO QDAY 03/15/22 03/30/22 1 Day Ago Vitamin] ~03/29/22 1 tab Previous Rx's Medication Instructions Recorded Last Taken Type Labetalol HCl [Labetalol 300mg TAB] 300 mg PO BID #90 03/29/22 Unknown Rx Allergies Allergy/AdvReac Type Severity Reaction Status Date / Time No Known Allergies Allergy Verified 03/09/22 22:22 ED Review of Systems ROS: Stated complaint: HIGH B/P Other details as noted in HPI Comment: All other systems reviewed and negative Cardiovascular: edema (+1 bilateral pitting edema), other (high blood pressure with recent history of preeclampsia) ED Past Medical Hx - Past Medical History Previous Medical History?: Yes Hx Hypertension: No Hx Congestive Heart Failure: No Hx Diabetes: No Hx Deep Vein Thrombosis: No Hx Renal Disease: No 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) Hx Seizures: No Hx Asthma: No Hx COPD: No Hx HIV: No Additional medical history: pre-eclampsia - Surgical History Past Surgical History?: Yes Additional Surgical History: bone marrow donation - Social History Smoking Status: Never Smoker Substance Use Type: None - Medications Home Medications: Home Medications Medication Instructions Recorded Confirmed Last Taken Type Aspirin BABY CHEW TAB 81 mg PO QDAY 03/15/22 03/30/22 03/14/22 History 1 Vit-Fe Fumar-FA [ 1 tab PO QDAY 03/15/22 03/30/22 1 Day Ago History Vitamin] ~03/29/22 1 tab Labetalol HCl [Labetalol 300mg TAB] 300 mg PO BID #90 03/29/22 03/30/22 Unknown Rx ED Physical Exam - General Limitations: No Limitations General appearance: alert, in no apparent distress - Head Head exam: Present: normal inspection - Eye Eye exam: Present: normal appearance Pupils: Present: normal accommodation - ENT ENT exam: Present: normal exam, normal orophraynx - Neck Neck exam: Present: normal inspection, full ROM. Absent: tenderness - Respiratory Respiratory exam: Present: normal lung sounds bilaterally. Absent: respiratory distress, accessory muscle use - Cardiovascular Cardiovascular Exam: Present: regular rate, normal rhythm, normal heart sounds - GI/Abdominal GI/Abdominal exam: Present: soft, normal bowel sounds. Absent: distended, tenderness - Extremities Exam Extremities exam: Present: full ROM, normal capillary refill, pedal edema (+ 1 bilateral pitting edema). Absent: tenderness - Back Exam Back exam: Absent: tenderness, CVA tenderness (R), CVA tenderness (L) - Neurological Exam Neurological exam: Present: alert, oriented X3 - Psychiatric Psychiatric exam: Present: normal affect, normal mood - Skin Skin exam: Present: warm, normal color ED Course Vital Signs 03/30/22 03/30/22 03/30/22 04:38 05:12 05:13 Temperature 98.2 F 98.0 F Pulse Rate 86 68 80 Respiratory 16 16 17 Rate Blood Pressure 154/89 Blood Pressure 166/96 [Right] O2 Sat by Pulse 98 99 99 Oximetry 03/30/22 03/30/22 03/30/22 05:15 05:18 05:30 Temperature Pulse Rate 79 74 Respiratory 20 Rate Blood Pressure 162/87 Blood Pressure [Right] O2 Sat by Pulse 98 99 Oximetry 03/30/22 03/30/22 03/30/22 05:45 06:01 06:15 Temperature Pulse Rate 70 69 94 H Respiratory 25 H 18 17 Rate Blood Pressure 156/85 171/86 171/86 Blood Pressure [Right] O2 Sat by Pulse 98 97 98 Oximetry 03/30/22 03/30/22 03/30/22 06:31 06:45 07:01 Temperature Pulse Rate 76 76 81 Respiratory 19 19 20 Rate Blood Pressure 153/82 153/82 168/95 Blood Pressure [Right] O2 Sat by Pulse 94 96 97 Oximetry 03/30/22 03/30/22 03/30/22 07:15 07:31 07:45 Temperature Pulse Rate 64 75 69 Respiratory 21 22 20 Rate Blood Pressure 168/95 166/92 166/92 Blood Pressure [Right] O2 Sat by Pulse 98 96 97 Oximetry 03/30/22 03/30/22 03/30/22 08:01 08:15 08:31 Temperature Pulse Rate 99 H 82 78 Respiratory 22 18 16 Rate Blood Pressure 177/95 177/95 182/86 Blood Pressure [Right] O2 Sat by Pulse 95 97 95 Oximetry 03/30/22 03/30/22 03/30/22 08:45 09:01 09:15 Temperature Pulse Rate 89 78 73 Respiratory 23 20 22 Rate Blood Pressure 182/86 163/87 171/85 Blood Pressure [Right] O2 Sat by Pulse 99 95 98 Oximetry 03/30/22 03/30/22 03/30/22 09:31 09:45 10:00 Temperature Pulse Rate 70 70 66 Respiratory 23 18 18 Rate Blood Pressure 166/103 166/103 166/103 Blood Pressure [Right] O2 Sat by Pulse 96 99 99 Oximetry 03/30/22 03/30/22 03/30/22 10:19 10:31 10:45 Temperature Pulse Rate 78 97 H 77 Respiratory 12 18 22 Rate Blood Pressure 171/100 171/100 171/100 Blood Pressure [Right] O2 Sat by Pulse 97 98 97 Oximetry 03/30/22 03/30/22 11:01 11:15 Temperature Pulse Rate 63 71 Respiratory 19 18 Rate Blood Pressure 166/103 171/100 Blood Pressure [Right] O2 Sat by Pulse 97 96 Oximetry - Reevaluation(s) Reevaluation #1: 03/30/22 13:37 Pt have had 2 dose of labetolol and Magnesium bolus and drip -- with somewhat improvement in blood pressure but no below 150 mmHg systolic. - Consultations Consultation #1: 03/30/22 13:37 Dr Mitchell who accept pt to L&D for possible magnesium sulfate treatment ED Medical Decision Making - Lab Data Result diagrams: 03/30/22 05:02 03/30/22 05:02 - Medical Decision Making here with elevated blood pressure with recent diagnosis of preeclampsia and -- currently on Labetolo at home -- will go ahead and order routine labs including CBC, CMP and UA for any infectious process or electrolyte abnormality-- will continue ivf labetolol and magnesium to treat her blood pressure and membrane stabilization to prevent seizure. Pt however continue with unstable elevated blood pressure and noted with slightly elevated AST and normal T-bili-- At this point i consulted with Infant Toddler Lead Teacher Dr Mitchell who accept pt to the L&D for magnesium sulphate treatment -- Critical care attestation.: If time is entered above; I have spent that time in minutes in the direct care of this critically ill patient, excluding procedure time. ED Disposition Clinical Impression: pre-eclampsia with posterior reversible encephalopathy syndrome Hypertension Qualifiers: Hypertension type: unspecified secondary hypertension Qualified Code(s): I15.9 - Secondary hypertension, unspecified; I15 - Secondary hypertension Preeclampsia Qualifiers: Trimester: unspecified trimester Qualified Code(s): O14.90 - Unspecified pre- eclampsia, unspecified trimester Disposition: ADMITTED INPATIENT Is pt being admited?: Yes Does the pt Need Aspirin: No Condition: Stable Instructions: Hypertension (ED) Time of Disposition: 13:37
[2022-03-30] MEDS ORDERED: LACTATED RINGERS 1,000 ML IV SCH (18:00)
[2022-03-30] MEDS ORDERED: MAGNESIUM SULFATE 40GM/1000ML 40 GM/1,000 ML BAG IV SCH (18:00)
[2022-03-30] MEDS: hydrALAZINE 20 MG/1 ML INJ IV PRN ×2 (21:19→22:31)
--- NOTE | 2022-03-30 21:56 | History and Physical Report ---
History of Present Illness Date of examination: 03/30/22 Date of admission: 03/30/22 17:48 Chief complaint: elevated blood pressures s/p del @ 34 weeks for pre-eclampsia History of present illness: day #3 s/p , called CNM last night with c/o elevated blood pressure. She had not yet picked up her labetalol 300mg PO BID that she was d/c'd home on. She returned to the hospital and was evaluated in the ED where pressures were noted to be in the severe ranges, UA showed 1+ protienuria (also contained blood suspected from normal lochia), AST/ALT 48/36. Mag started in ED, transferred to L&D for b/p stabilization and continuation of 24hrs of mag sulfate. Past History : 2 Living Children: 1 Spont. Ab: 1 # 1 Delivery date: 2017 Delivery type: SAB Comments: Bilghted ovum, no D&C # 2 Delivery date: 03/27/2022 Delivery type: Comments: IOL @ 34 weeks for severe pre-e Past Medical History: Reviewed and updated today: + COVID 09/06/2021 Fully vaccinated (partner is also vaccinated) Past Surgical History: Reviewed and updated today: Bone marrow donation 2009 Family History Summary: Other Family Member - Has No Family History of Uterine Cancer - Entered On: 09/23/2021 Other Family Member - Has No Family History of Stomach Cancer - Entered On: 09/23/2021 Other Family Member - Has No Family History of Spontaneous DVT-PE - Entered On: 09/23/2021 Other Family Member - Has No Family History of Small Bowel Cancer - Entered On: 09/23/2021 Other Family Member - Has No Family History of Pancreatic Cancer - Entered On: 09/23/2021 Other Family Member - Has No Family History of Ovarvian Cancer - Entered On: 09/23/2021 Other Family Member - Has No Family History of Kidney/Urinary Tract Cancer - Entered On: 09/23/2021 Other Family Member - Has No Family History of Colon Cancer - Entered On: 09/23/2021 Other Family Member - Has No Family History of Breast Cancer - Entered On: 09/23/2021 Other Family Member - Has No Family History of Brain Cancer - Entered On: 09/23/2021 Other Family Member - Has No Family History of Biliary Tract Cancer - Entered On: 09/23/2021 Social History: Patient is Smoking History: Patient has never smoked. Risk Factors: Smoked Tobacco Use: Never smoker Smokeless Tobacco Use: Never Passive Smoke Exposure: no HIV High Risk Behavior: no Exercise: no Seatbelt Use: 100 % No Dietary Counseling Reason: pn yes PAP Smear History: Date of Last PAP Smear: 03/29/2021 Results: Normal Alcohol Use: yes Drinks per day: social Drug Use: no Past Medical History Surgery (Non-slimer): Bone marrow donation 2009 Abnormal PAP: negative Social Hx: Patient is Smoking History: Patient has never smoked. Infection History Hx of STD: none HIV Risk Eval: no Rash, Viral, or Febrile illness since last LMP? yes Varicella/Chicken Pox Status: Previous Disease TB Risk: no Infection History Comments: COVID 09/06/2021 Genetic History ADVANCED MATERNAL AGE Congenital Heart Defect: Mom: no Dad: no Daniele Disease: Mom: no Dad: no Thalassemia Mom: no Dad: no Neural Tube Defect Mom: no Dad: no Down's Syndrome Mom: no Dad: no Sarkis-Sachs Mom: no Dad: no Sickle Cell Disease/Trait Mom: yes Dad: no Comments: mother Hemophilia Mom: no Dad: no Muscular Dystrophy Mom: no Dad: no Cystic Fibrosis Mom: no Dad: no Major Chorea Mom: no Dad: no Mental Retardation Mom: no Dad: no Fragile X Mom: no Dad: no Other Genetic/Chromosomal Disorder Mom: no Dad: no Child w/other defect Mom: no Dad: no Enviromental Exposures Enviromental Exposures Reviewed Xray Exposure: no Medication, drug, or alcohol use since LMP: no Chemical/Other Exposure: no Exposure to Cat Liter: no Hx of Parvovirus (Fifth Disease): no Occupational Exposure to Children: other Comments: [employer]) Current Allergies (reviewed today): No known allergies Past History Past Medical History: other (s) Past Surgical History: other (see HPI) [employer] History: other (see HPI) Family/Genetic History: other (see HPI) - Obstetrical History : 2 Para: 1 Hx # Term Pregnancies: 0 Number of Pregnancies: 1 Spontaneous Abortions: 1 Induced : 0 Number of Living Children: 1 Medications and Allergies Allergies Allergy/AdvReac Type Severity Reaction Status Date / Time No Known Allergies Allergy Verified 03/09/22 22:22 Home Medications Medication Instructions Recorded Confirmed Last Taken Type Aspirin BABY CHEW TAB 81 mg PO QDAY 03/15/22 03/30/22 03/14/22 History 1 Vit-Fe Fumar-FA [ 1 tab PO QDAY 03/15/22 03/30/22 1 Day Ago History Vitamin] ~03/29/22 1 tab NIFEdipine XL [Procardia Xl] 30 mg PO QDAY #30 tablet 04/02/22 Unknown Rx labetaloL [Labetalol 200mg TAB] 400 mg PO BID #60 04/02/22 Unknown Rx Active Meds: Active Medications Acetaminophen (Acetaminophen 325 Mg Tab) 650 mg PO Q4H PRN PRN Reason: Pain, Mild (1-3) Hydralazine HCl (Hydralazine 20 Mg/1 Ml Inj) 10 mg IV Q30MIN PRN PRN Reason: Hypertension Last Admin: 03/30/22 21:19 Dose: 10 mg Magnesium Sulfate (Magnesium Sulfate 40gm/1000ml) 40 gm in 1,000 mls @ 25 mls/hr IV ONCE ONE Stop: 03/31/22 21:00 Last Admin: 03/30/22 10:00 Dose: 1 gm/hr, 25 mls/hr Lactated Ringer's (Lactated Ringers) 1,000 mls @ 125 mls/hr IV DIRECT ADWNA Magnesium Sulfate (Magnesium Sulfate 40gm/1000ml) 40 gm in 1,000 mls @ 50 mls/hr IV DIRECT DAWNA Labetalol HCl (Labetalol 200 Mg Tab) 200 mg PO BID DAWNA Last Admin: 03/30/22 21:21 Dose: 200 mg Review of Systems All systems: negative - Vital Signs Vital signs: Vital Signs Temp Pulse Resp BP Pulse Ox 98.2 F 86 16 154/89 98 03/30/22 04:38 03/30/22 04:38 03/30/22 04:38 03/30/22 04:38 03/30/22 04:38 Temp Pulse Resp BP Pulse Ox 98.0 F 77 27 H 181/87 98 03/30/22 05:12 03/30/22 21:50 03/30/22 15:00 03/30/22 21:44 03/30/22 21:50 - Physical Exam Cardiovascular: Regular rate Lungs: Positive: Normal air movement Abdomen: Positive: normal appearance, soft Genitourinary (Female): Positive: normal external genitalia Results Result Diagrams: 03/30/22 05:02 03/30/22 05:02 Abnormal lab results 03/30/22 03/30/22 03/30/22 Range/Units 05:02 05:02 05:02 WBC 12.2 H (4.5-11.0) K/mm3 RBC 2.75 L (3.65-5.03) M/mm3 Hgb 8.6 L (10.1-14.3) gm/dl Hct 25.2 L (30.3-42.9) % RDW 15.4 H (13.2-15.2) % Harper % (Auto) 8.2 H (0.0-7.3) % Harper # (Auto) 1.0 H (0.0-0.8) K/mm3 Seg Neutrophils % 73.9 H (40.0-70.0) % Seg Neutrophils # 9.0 H (1.8-7.7) K/mm3 PT (12.2-14.9) Sec. INR (0.87-1.13) Potassium 3.4 L (3.6-5.0) mmol/L Chloride 107.3 H (98-107) mmol/L Carbon Dioxide 19 L (22-30) mmol/L AST 48 H (5-40) units/L Alkaline Phosphatase 205 H (35-129) units/L Lactate Dehydrogenase 401 H (91-180) units/L Total Creatine Kinase 234 H (30-135) units/L Total Protein 5.8 L (6.3-8.2) g/dL Albumin 3.0 L (3.9-5) g/dL Urine Blood (Negative) Urine WBC (Auto) (0.0-6.0) /HPF 03/30/22 03/30/22 Range/Units 05:02 05:34 WBC (4.5-11.0) K/mm3 RBC (3.65-5.03) M/mm3 Hgb (10.1-14.3) gm/dl Hct (30.3-42.9) % RDW (13.2-15.2) % Harper % (Auto) (0.0-7.3) % Harper # (Auto) (0.0-0.8) K/mm3 Seg Neutrophils % (40.0-70.0) % Seg Neutrophils # (1.8-7.7) K/mm3 PT 12.1 L (12.2-14.9) Sec. INR 0.82 L (0.87-1.13) Potassium (3.6-5.0) mmol/L Chloride (98-107) mmol/L Carbon Dioxide (22-30) mmol/L AST (5-40) units/L Alkaline Phosphatase (35-129) units/L Lactate Dehydrogenase (91-180) units/L Total Creatine Kinase (30-135) units/L Total Protein (6.3-8.2) g/dL Albumin (3.9-5) g/dL Urine Blood Large A (Negative) Urine WBC (Auto) 90.0 H (0.0-6.0) /HPF All other labs normal. Assessment and Plan 41y/o 3 days readmitted for b/p control/mag sulfate. Admission orders in EMR. - Patient Problems (1) Anemia Current Visit: Yes Status: Acute Plan to address problem: fe supplementation (2) Pre-eclampsia in period Current Visit: No Status: Acute Plan to address problem: continue mag sulfate x 24hrs titrate labetalol for blood pressure control - currently @ 300mg BID Strict I&O Ok to hold schilling if patient output is above 30ml/hr and if patient stable to transfer to commode with assistance.
[2022-03-30] MEDS: ACETAMINOPHEN 325 MG TAB PO PRN (22:10)
[2022-03-31] MEDS: ACETAMINOPHEN 325 MG TAB PO PRN (04:52)
--- NOTE | 2022-03-31 08:07 | Progress Note ---
Assessment and Plan A: 41 y.o. s/p , day #4, s/p magnesium infusion, Pre- eclampsia. - Patient Problems (1) Pre-eclampsia in period Current Visit: No Status: Acute Plan to address problem: Continue with care. Continue to monitor blood pressures. Labetalol increased to 400mg BID. Continue to monitor for worsening s/sx of Pre-eclampsia. If blood pressures WNL, may discharge on 04/01. Subjective - Subjective Date of service: 03/31/22 Principal diagnosis: s/p , Day #4 Pre Eclampsia, s/p magnesium infusion Interval history: Pt denies blurred vision, spots before her eyes, chest pain, and shortness of breath. She has a slight NG. We discussed her blood pressure ranges and need for an increase in Labetalol to 400mg twice daily. Pt verbalized understanding. Patient reports: appetite normal, voiding normally, pain well controlled, flatus, ambulating normally : doing well, in NICU Objective - Vital Signs Latest vital signs: Vital Signs Temp Pulse Resp BP BP Pulse Ox Pulse Ox 03/31/22 05:55 98.0 F 73 20 150/89 98 98 03/31/22 05:26 78 146/82 03/31/22 05:24 98.6 F 03/31/22 04:57 81 98 03/31/22 04:53 83 99 03/31/22 04:48 78 98 03/31/22 04:42 81 98 03/31/22 04:38 78 96 03/31/22 04:33 89 99 03/31/22 04:27 79 98 03/31/22 04:22 84 99 03/31/22 04:17 83 96 03/31/22 04:12 78 95 03/31/22 04:07 76 98 03/31/22 04:02 78 96 03/31/22 03:57 77 141/76 97 03/31/22 03:52 78 96 03/31/22 03:47 80 95 03/31/22 03:42 77 96 03/31/22 03:37 79 95 03/31/22 03:32 78 95 03/31/22 03:30 80 94 03/31/22 03:27 81 95 03/31/22 03:22 81 96 03/31/22 03:17 91 H 98 03/31/22 03:12 80 95 03/31/22 03:07 81 95 03/31/22 03:02 82 95 03/31/22 02:58 82 94 03/31/22 02:57 82 132/70 94 03/31/22 02:52 78 95 03/31/22 02:50 80 94 03/31/22 02:47 82 95 03/31/22 02:44 76 93 03/31/22 02:42 76 93 03/31/22 02:39 79 94 03/31/22 02:37 84 98 03/31/22 02:32 85 95 03/31/22 02:27 84 95 03/31/22 02:26 82 94 03/31/22 02:22 87 95 03/31/22 02:17 86 95 03/31/22 02:12 85 95 03/31/22 02:07 89 96 03/31/22 02:06 90 94 03/31/22 02:02 99 H 99 03/31/22 01:57 87 117/62 95 03/31/22 01:52 88 97 03/31/22 01:47 87 97 03/31/22 01:42 87 97 03/31/22 01:37 86 97 03/31/22 01:32 89 96 03/31/22 01:27 90 96 03/31/22 01:22 92 H 96 03/31/22 01:17 92 H 96 03/31/22 01:12 92 H 96 03/31/22 01:07 97 H 97 03/31/22 01:02 91 H 96 03/31/22 00:57 93 H 116/62 98 03/31/22 00:52 89 97 03/31/22 00:47 90 97 03/31/22 00:42 90 98 03/31/22 00:37 88 98 03/31/22 00:32 88 98 03/31/22 00:27 95 H 99 03/31/22 00:22 88 98 03/31/22 00:17 85 98 03/30/22 23:55 89 96 03/30/22 23:50 90 96 03/30/22 23:45 89 96 03/30/22 23:44 88 124/66 07 23:40 90 96 03/30/22 23:35 90 96 07/21/22 23:30 89 96 0721/22 23:25 90 96 0721/22 23:24 87 142/75 072122 23:20 94 H 96 21/22 23:15 92 H 98 072122 23:10 103 H 98 2122 23:05 96 H 98 072122 23:04 89 137/76 0721/22 23:00 90 99 072122 22:55 100 H 98 22 22:50 91 H 97 2122 22:45 86 97 22 22:44 85 139/68 2122 22:40 82 97 2122 22:35 76 97 22 22:30 76 98 22 22:25 82 99 0722 22:24 74 179/91 22 22:20 79 98 0722 22:15 82 98 22 22:10 83 98 22 22:05 79 98 22 22:04 76 169/81 22 22:00 81 98 0722 21:55 80 98 22 21:50 77 98 2122 21:45 92 H 98 2122 21:44 76 181/87 22 21:40 92 H 99 22 21:35 78 98 072122 21:30 73 98 2122 21:25 78 99 072122 21:23 67 165/76 2122 21:21 64 182/85 21/22 21:20 62 98 0721/22 21:19 59 L 182/85 21/22 21:15 63 97 0721/22 21:13 67 182/85 0721/22 21:10 68 98 2122 21:05 63 98 95 072122 21:01 67 190/84 21/22 21:00 67 98 2122 20:55 71 99 2122 19:01 165/88 96 21/22 18:45 175/92 98 21/22 18:31 175/92 98 07/21/22 18:15 168/82 98 03/30/22 18:01 168/82 99 03/30/22 17:45 166/74 96 03/30/22 17:31 166/74 96 03/30/22 17:15 186/87 97 03/30/22 17:01 186/87 98 03/30/22 16:45 177/89 98 03/30/22 16:31 177/89 98 03/30/22 16:15 169/79 97 03/30/22 16:01 169/79 98 03/30/22 15:45 169/88 96 03/30/22 15:31 169/88 97 03/30/22 15:17 169/88 100 03/30/22 15:00 61 27 H 168/84 98 03/30/22 14:45 65 28 H 168/84 98 03/30/22 14:31 62 16 168/84 99 03/30/22 14:15 65 14 170/87 99 03/30/22 14:01 61 20 170/87 98 03/30/22 13:45 62 19 166/85 98 03/30/22 13:31 74 25 H 166/85 97 03/30/22 13:15 67 22 171/87 98 03/30/22 13:01 75 22 171/87 98 03/30/22 12:45 64 17 171/86 98 03/30/22 12:31 65 25 H 171/86 97 03/30/22 12:15 89 16 173/101 98 03/30/22 12:01 68 23 173/101 98 03/30/22 11:45 70 21 160/101 97 22 11:31 70 18 160/101 97 22 11:15 71 18 171/100 96 22 11:01 63 19 166/103 97 22 10:45 77 22 171/100 97 22 10:31 97 H 18 171/100 98 03/30/22 10:19 78 12 171/100 97 22 10:00 66 18 166/103 99 03/30/22 09:45 70 18 166/103 99 22 09:31 70 23 166/103 96 03/30/22 09:15 73 22 171/85 98 03/30/22 09:01 78 20 163/87 95 03/30/22 08:45 89 23 182/86 99 03/30/22 08:31 78 16 182/86 95 03/30/22 08:15 82 18 177/95 97 Intake and Output 03/30/22 03/31/22 03/31/22 22:59 06:59 14:59 Intake Total 885 Output Total 2600 Balance -1715 Intake: IV 885 Lactated Ringers 1,000 ml 456 @ 125 mls/hr IV DIRECT DAWNA Rx#:[id number] MAGNESIUM SULFATE 40GM/ 429 1000ML 40 gm In 1,000 ml @ 2 GM/HR 50 mls/hr IV DIRECT DAWNA Rx#:[id number] Output: Urine 2600 Void 2600 Other: Total, Output Amount 1100 # Voids Void 1 - Exam Narrative Exam: Blood pressure ranges since admission have been mostly 130's-190/60-90's. Cardiovascular: Present: Regular rate Lungs: Present: Normal air movement Abdomen: Present: normal appearance, soft Uterus: Present: normal Extremities: Present: normal Deep Tendon Reflex Grade: Normal +2 - Labs Labs: Abnormal lab results 03/31/22 Range/Units 03:13 Magnesium 5.70 H (1.7-2.3) mg/dL
[2022-03-31] MEDS: FERROUS SULFATE 325 MG TAB PO SCH ×3 (08:26→22:35)
[2022-03-31] MEDS: POTASSIUM CHLORIDE ER 20 MEQ TAB PO SCH (11:31)
[2022-04-01] MEDS: FERROUS SULFATE 325 MG TAB PO SCH ×3 (10:04→22:53)
[2022-04-01] MEDS: POTASSIUM CHLORIDE ER 20 MEQ TAB PO SCH (10:04)
[2022-04-01] MEDS: ACETAMINOPHEN 325 MG TAB PO PRN ×2 (14:23→20:47)
--- NOTE | 2022-04-01 15:59 | Progress Note ---
Assessment and Plan BP's noted, will attempt to maxmize Labetalol for BP control at this time. Patient agrees with POC - Patient Problems (1) Hypertension Current Visit: Yes Status: Acute Qualifiers: Hypertension type: unspecified secondary hypertension Qualified Code(s): I15.9 - Secondary hypertension, unspecified; I15 - Secondary hypertension (2) Preeclampsia Current Visit: Yes Status: Acute Qualifiers: Trimester: unspecified trimester Qualified Code(s): O14.90 - Unspecified pre-eclampsia, unspecified trimester Subjective - Subjective Date of service: 04/01/22 Principal diagnosis: s/p , Day #5 Pre Eclampsia, s/p magnesium infusion Interval history: No complaints Objective - Vital Signs Latest vital signs: Vital Signs Temp Pulse Resp BP BP Pulse Ox Pulse Ox 04/01/22 14:21 160/65 04/01/22 12:22 98.5 F 68 20 179/80 95 04/01/22 10:04 145/83 04/01/22 08:20 96 04/01/22 07:29 99.3 F 60 20 153/66 96 04/01/22 05:05 98 04/01/22 05:00 59 L 154/69 96 04/01/22 03:35 98 04/01/22 01:35 98.2 F 66 20 148/72 97 98 03/31/22 23:30 98 03/31/22 22:35 142/66 03/31/22 22:25 65 142/66 98 03/31/22 21:10 98 03/31/22 20:47 76 153/84 98 03/31/22 19:50 98 Intake and Output 04/01/22 04/01/22 04/01/22 06:59 14:59 22:59 Intake Total 240 200 Balance 240 200 Intake: Oral 240 200 Other: Total, Intake Amount 120 200 # Voids Void 1 1
[2022-04-01] MEDS ORDERED: hydrALAZINE 20 MG/1 ML INJ IV ONE (17:00)
[2022-04-01] MEDS: ONDANSETRON 8 MG ODT TAB PO PRN (23:36)
[2022-04-02] MEDS ORDERED: NIFEdipine*For Tocolysis only* 10 MG CAPSULE PO ONE ×2 (01:24→02:39)
[2022-04-02] MEDS: ACETAMINOPHEN 500 MG TAB PO PRN ×2 (03:11→14:59)
[2022-04-02] MEDS ORDERED: DOCUSATE SODIUM 100 MG CAP PO PRN (08:40)
--- NOTE | 2022-04-02 09:28 | Progress Note ---
Assessment and Plan - Patient Problems (1) Hypertension Current Visit: Yes Status: Acute Qualifiers: Hypertension type: unspecified secondary hypertension Qualified Code(s): I15.9 - Secondary hypertension, unspecified; I15 - Secondary hypertension Plan to address problem: BP's better after Procardia (IR) 10mg x2 doses. Will continue Labetalol 400mg bid and start Nifedipine 30mg XL (2) Preeclampsia Current Visit: Yes Status: Acute Qualifiers: Trimester: unspecified trimester Qualified Code(s): O14.90 - Unspecified pre-eclampsia, unspecified trimester (3) Leg pain Current Visit: Yes Status: Acute Qualifiers: Laterality: left Qualified Code(s): M79.605 - Pain in left leg Plan to address problem: Will proceed with LLE doppler studies to evaluate for DVT. Subjective - Subjective Date of service: 04/02/22 Principal diagnosis: s/p , Day #6 Pre Eclampsia, s/p magnesium infusion Interval history: Feels better however has numbness (L) foot and tightness in (L) calf muscle, minimal bleeding Patient reports: appetite normal, voiding normally, pain well controlled, ambulating normally Objective - Vital Signs Latest vital signs: Vital Signs Temp Pulse Resp BP BP Pulse Ox 04/02/22 07:36 98.6 F 65 18 153/81 95 04/02/22 06:36 98.6 F 64 18 138/73 95 04/02/22 03:09 57 L 20 146/63 97 04/02/22 03:08 146/63 04/02/22 01:03 166/79 04/02/22 00:18 171/69 04/01/22 23:19 98.5 F 54 L 20 173/77 96 04/01/22 20:48 63 180/90 04/01/22 20:43 98.8 F 63 20 180/90 98 04/01/22 19:00 98 04/01/22 17:30 165/70 04/01/22 17:10 53 L 178/86 04/01/22 14:21 160/65 04/01/22 12:22 98.5 F 68 20 179/80 95 04/01/22 10:04 145/83 Intake and Output 04/01/22 04/02/22 04/02/22 22:59 06:59 14:59 Intake Total 20 600 Balance 20 600 Intake: IV 20 Right Hand 20 Oral 600 Other: Total, Intake Amount 600 Voiding Method Toilet # Voids Void 3 - Exam Breasts: Present: engorged Cardiovascular: Present: Regular rate Lungs: Present: Normal air movement Abdomen: Present: normal appearance, soft. Absent: distention, tenderness, guarding Uterus: Present: fundal height below umbilicus Extremities: Present: normal, tenderness ((L) calf muscle). Absent: edema
--- NOTE | 2022-04-02 09:38 | Event Note ---
Date: 04/02/22 Unable to have a LLE doppler at today, increased risk for VTE, will start Prophylactic lovenox today, doppler ordered for tomorrow
[2022-04-02] MEDS: FERROUS SULFATE 325 MG TAB PO SCH ×2 (10:08→22:02)
[2022-04-02] MEDS: NIFEdipine XL 30 MG TAB PO SCH (10:08)
[2022-04-02] MEDS ORDERED: ENOXAPARIN 40 MG/0.4 ML INJ SUB-Q ONE (10:30)
[2022-04-03] MEDS: NIFEdipine XL 30 MG TAB PO SCH (09:58)
[2022-04-03] MEDS: FERROUS SULFATE 325 MG TAB PO SCH ×2 (09:58→22:20)
--- NOTE | 2022-04-03 10:09 | Vascular Lab Report ---
DUPLEX DOPPLER LOWER EXTREMITY VEINS, LEFT INDICATION / CLINICAL INFORMATION: Left leg pain. . History of preeclampsia and hypertensio n. TECHNIQUE: Duplex doppler imaging was performed through the veins of the left lower extremity using v enous compression and other maneuvers. COMPARISON: None available. FINDINGS: LEFT COMMON FEMORAL VEIN: Negative. LEFT FEMORAL VEIN: Negative. LEFT POPLITEAL VEIN: Negative. LEFT CALF VEINS: Negative. ADDITIONAL FINDINGS: No abnormal mass or fluid collection is seen. IMPRESSION: No sonographic evidence for DVT in the left lower extremity. Signer Name: Roe Calvillo MD Signed: 04/03/2022 10:02 AM Workstation Name: [id number]
--- NOTE | 2022-04-03 11:51 | Progress Note ---
Assessment and Plan - Patient Problems (1) pre-eclampsia with posterior reversible encephalopathy syndrome Current Visit: Yes Status: Acute (2) Pre-eclampsia in period Current Visit: No Status: Acute Plan to address problem: -con't to monitor blood pressures - anticipate d/c home tomorrow if blood pressure remain in mild ranges Subjective - Subjective Date of service: 04/03/22 Principal diagnosis: s/p , Day #7 Pre Eclampsia, s/p magnesium infusion Interval history: pt blood pressures are improved. Dopplers don't she evidence of DVT so will d/c lovenox at this time. No NG or blurry vision at time of visit this am. I d/w pt that the plan is to monitor to day as the procardia was just added yesterday to be sure not BP control has been optimized. She expressed understanding. Patient reports: appetite normal Objective - Vital Signs Latest vital signs: Vital Signs Temp Pulse Resp BP BP Pulse Ox 04/03/22 10:03 98.2 F 92 H 20 143/93 98 04/03/22 04:29 99.0 F 89 20 135/78 96 04/02/22 22:03 87 141/87 04/02/22 22:00 98 04/02/22 18:00 124/82 04/02/22 16:31 98.0 F 71 18 144/87 99 Intake and Output 04/02/22 04/03/22 04/03/22 22:59 06:59 14:59 Intake Total 900 360 320 Balance 900 360 320 Intake: Oral 540 360 320 Intake, Free Water 360 Other: Total, Intake Amount 540 120 320 Voiding Method Toilet # Voids Void 2 1 1 - Exam Cardiovascular: Present: Normal S1, Normal S2 Abdomen: Present: normal appearance, soft. Absent: distention, tenderness, guarding
[2022-04-03] MEDS ORDERED: ENOXAPARIN 40 MG/0.4 ML INJ SUB-Q SCH (22:00)
[2022-04-03] MEDS: ACETAMINOPHEN 500 MG TAB PO PRN (22:22)
--- NOTE | 2022-04-04 07:29 | Discharge Summary ---
Providers - Providers Date of Admission: 03/30/22 17:48 Date of discharge: 04/04/22 Attending physician: MJ GORE MD Primary care physician: [employer]N [employer] SUPERVISOR Hospitalization Reason for admission: other ( re-admit for Pre-eclampsia. ) Discharge diagnosis: other Pertinent studies: Pt was a re-admit for Pre-eclampsia with severe features. She was diagnosed with Pre-eclampsia during the third trimester and was given a course of magnesium infusion. She was discharged home in good condition and on Labetalol 300mg BID. day # 3, pt called the answering service with c/o elevated blood pressures. She then revealed that she had not picked up her prescription for Labetalol. She presented to the ER with blood pressures of 160's/100's. She was then re-admitted for magnesium. Today, patient denies NG, blurred vision, spots before her eyes, chest pain, shortness of breath, and upper abdominal pain. Her blood pressure ranges have been 119-139/68-80's with some DBP in the 90's. We discussed that she MUST take her blood pressure at home and call the sales contractor provider if it is 140/90 or greater after taking her blood pressure medication. We discussed importance of taking her blood pressure medication and making a follow up in the office for a blood pressure check. Pt states that she has an appointment already scheduled for 04/05 in the [place] office. She is aware that she must mixing picker tender her medication today from the pharmacy and keep her scheduled appointment on 04/05. Hospital course: S: Pt doing well. Ambulating, voiding, passing flatus okay. O: VSS. BP ranges 119-139/68-80's with a few DBPs @ 90. A: 41 y.o. day # 8, s/p magnesium infusion. Pre-eclampsia. In good condition and can be discharged home. P: Discharge home with instructions. Pt to keep scheduled appointment in the office on 04/05 for follow up. Condition at discharge: Good Disposition: 01 HOME / SELF CARE / HOMELESS - Discharge Diagnoses (1) Pre-eclampsia in period Status: Resolved Plan - Discharge Medications Prescriptions: labetaloL [Labetalol 200mg TAB] 400 mg PO BID #60 NIFEdipine XL [Procardia Xl] 30 mg PO QDAY #30 tablet - Provider Discharge Summary Activity: routine, no sex for 6 weeks, no heavy lifting 4 weeks, no strenuous exercise Diet: routine Instructions: routine Additional instructions: [] Smoking cessation referral if applicable(refer to patient education folder for contact #) [] Refer to [facility]'s [facility] Booklet Call your doctor immediately for: * Fever > 100.5 * Heavy vaginal bleeding ( >1 pad per hour) * Severe persistent headache * Shortness of breath * Reddened, hot, painful area to leg or breast - Follow up plan Follow up: PRIMARY MD FAZAL [Primary Care Provider] - 3-5 Days DARRICK MARION MD [Staff Physician] - 7 Days (- Thank you for allowing us to take care of you! - Please keep your scheduled appointment in the office on 04/05. - Please take your blood pressure medicine as prescribed! - If you develop the following please call the on-call provider and await further instructions: headache, blurred vision, spots before your eyes, severe pain in your upper belly, feeling like you can't catch your breath, chest pain, and/or you have these symnptoms with or without a blood pressure of 140/90 or greater. - If you take your blood pressure medicine and your blood pressure is still 140/90 or greater, please call the on-call provider for further instructions. - Should you have have any questions or concerns after discharge, please do not hesistate to call the office at [phone]. )
[2022-04-04] MEDS: ACETAMINOPHEN 500 MG TAB PO PRN (07:30)
[2022-04-04] MEDS: ONDANSETRON 8 MG ODT TAB PO PRN (07:50)
[2022-04-04 08:58] VITALS: BP 145/65
[2022-04-04] MEDS ORDERED: MAGNESIUM HYDROXIDE (MOM) ORAL LIQD UDC PO PRN (09:00)
[2022-04-04] MEDS: FERROUS SULFATE 325 MG TAB PO SCH (09:44)
[2022-04-04] MEDS: NIFEdipine XL 30 MG TAB PO SCH (09:45)
== END 2022-04-04 12:15 | disposition home or self-care (01) | DRG 776 ==
LOC: ED 04:27 → LD 17:48 → OB 03-31 05:46
PROVIDERS: ADMIT Student in an Organized Health Care Education/Training Program; ATTEND Student in an Organized Health Care Education/Training Program
DX: O14.95 Unspecified pre-eclampsia, complicating the puerperium (principal); O90.81 Anemia of the puerperium; Z20.822 Contact with and (suspected) exposure to COVID-19
CPT/HCPCS: 36415; 80053; 81001; 82550; 83615; 83735; 84550; 85025; 85610; 85730; 87086; G0378; J3490; J0360; J1650; J3475; J7120; Q0162; U0003